=== PATIENT | male | born 1970 | race Caucasian/White ===

== ENCOUNTER 2020-10-26 12:14 | Inpatient (IN) | payer SELFPAY ==
[2020-10-26] VITALS (17 sets, daily range): BP systolic 106–189; BP diastolic 66–98; PULSE 71–100; RESP 10–24; TEMP 36.6–37.8; O2SAT 90–96; BMI 42.5; BMI 46.6
--- NOTE | 2020-10-26 13:40 | XRR_ITS ---
PROCEDURE INFORMATION: Exam: XR Chest Exam date and time: 10/26/2020 1:40 PM Age: 50 years old Clinical indication: Other: Pain in RT armpit; Additional info: Sepsis TECHNIQUE: Imaging protocol: XR of the chest. Views: 1 view. COMPARISON: CT chest w con* [id number] 10/26/2020 2:14 PM FINDINGS: Lungs: The lungs are clear bilaterally. The pulmonary vasculature is normal. Pleural spaces: No pleural effusion. No pneumothorax. Heart/Mediastinum: The heart is normal in size and contour. Mediastinum: Stable. Bones/joints: Stable. XR/XR chest 1V portable [id number] IMPRESSION: No acute cardiopulmonary abnormality identified.
--- NOTE | 2020-10-26 13:40 | CTR_ITS ---
PROCEDURE INFORMATION: Exam: CT Chest With Contrast; Diagnostic Exam date and time: 10/26/2020 1:40 PM Age: 50 years old Clinical indication: Mass, lump, or swelling in the chest; Patient HX: R axilla swelling and redness; Additional info: Suspect deep tissue infection of right axilla with abscess. TECHNIQUE: Imaging protocol: Diagnostic computed tomography of the chest with contrast. Radiation optimization: All CT scans at this facility use at least one of these dose optimization techniques: automated exposure control; mA and/or kV adjustment per patient size (includes targeted exams where dose is matched to clinical indication); or iterative reconstruction. Contrast material: OMNI 300; Contrast volume: 95 ml; Contrast route: INTRAVENOUS (IV); COMPARISON: No relevant prior studies available. RADIATION DOSE METRICS: Total DLP (mGy-cm): 1074.98 FINDINGS: Thyroid: The bilateral thyroid lobes are unremarkable. Lungs: Unremarkable. No consolidation. No masses. Pleural spaces: No pneumothorax. No pleural effusion. Heart: No cardiomegaly. No pericardial effusion. Aorta: Unremarkable. No aortic aneurysm. Lymph nodes: No enlarged lymph nodes. Spleen: The spleen is mildly enlarged measuring 17.0 cm transversely. Bones/joints: No destructive bony process identified. Thoracic spine vertebral body marginal osteophytes are noted at multiple levels. Subacute-chronic lateral left 5th through 8th rib fractures. Soft tissues: Extensive soft tissue edema of the right axilla, no ectopic gas identified. Overlying skin thickening. Fluid and mixed fluid/fat densities are present in the right axilla, none of which demonstrated well-formed wall. The findings are partially excluded by field of view limitations posterolaterally. CT/CT chest w con* [id number] IMPRESSION: 1. Findings consistent right axillary cellulitis. Developing multifocal abscess formation is suspected. MRI or follow-up may add additional useful information. 2. Mild splenomegaly. Radiation Dose CTDIVOL = (mGy): DLP = 1074.98 (mGy-cm)
--- NOTE | 2020-10-26 13:45 | ED_ITS ---
HPI - Dizziness General: Chief Complaint: Dizziness Stated Complaint: SPIDER BITE/DIZZINESS Time Seen by Provider: 10/26/20 13:11 History of Present Illness: HPI Narrative: 50-year-old male with no known past medical history presents due to 5 days of worsening swelling in his right axilla and armpit. Describes redness in the area. Describes lightheadedness. Denies chest pain or shortness of breath. Denies fevers or chills. Does not know of any diabetes. Denies any recent injury cuts or bites to the area. Review of Systems Narrative: - CONSTITUTIONAL: Denies weight loss, fever and chills. - HEENT: Denies changes in vision and hearing. - RESPIRATORY: Denies SOB and cough. - CV: Denies palpitations and CP. - GI: Denies abdominal pain, nausea, vomiting and diarrhea. - : Denies dysuria and urinary frequency. - MSK: Denies myalgia and joint pain. - SKIN: Endorses rash - NEUROLOGICAL: Denies headache, weakness, numbness and syncope. - PSYCHIATRIC: Denies suicidal ideation Physical Exam Narrative: EXAM NARRATIVE: - GENERAL: Alert and oriented x 3. No acute distress. Well-nourished. - EYES: EOMI. Anicteric. - HENT: Moist mucous membranes. No scleral icterus. No cervical lymphadenopathy. - LUNGS: Clear to auscultation bilaterally. No accessory muscle use. - CARDIOVASCULAR: Regular rate and rhythm. No murmur. No JVD. - ABDOMEN: Soft, non-tender and non-distended. No palpable masses. - EXTREMITIES: Erythema edema and induration to right armpit. No fluctuance. Area is tender. Extremities otherwise neurovascularly intact. No crepitus or signs of free gas. - SKIN: No rashes or lesions. Warm. - NEUROLOGIC: No meningismus or focal neurological deficits. CN II-XII grossly intact. - PSYCHIATRIC: Cooperative. Appropriate mood and affect. Course Vital Signs: Vital signs: Vital Signs Temperature 99.2 F 10/26/20 14:50 Pulse Rate 100 10/26/20 14:50 Respiratory Rate 22 H 10/26/20 14:50 Blood Pressure 146/92 10/26/20 14:50 Pulse Oximetry 94 10/26/20 14:50 MDM - Dizziness MDM Narrative: Medical decision making narrative: 50-year-old male presents due to axillary rash with edema and tenderness. On exam he is hemodynamically stable and nontoxic-appearing. Has low-grade fever. White count is elevated 14 there is hyponatremic to 126. Sepsis order set initiated. Patient was started on vancomycin cefepime and clindamycin. Blood cultures drawn. CT scan concerning for developing abscess but there is no free air. However in conjunction with severity of infected area and hyponatremia there is concern for developing necrotizing fasciitis. Discussed with surgery who will come to bedside to evaluate patient. Discussed with hospitalist and they agreed patient would benefit from admission. Patient admitted in stable condition. Further evaluation management per hospitalist team. Lab Data: Labs: Lab Results 10/26/20 10/26/20 10/26/20 Range/Units 13:58 13:58 13:58 WBC 14.8 H (4.0-10.0) 10^3/ uL RBC 4.03 L (4.1-5.3) 10^6/u L Hgb 13.4 (11.7-16.6) g/dL Hct 40.3 L (42.0-52.0) % MCV 100.0 H (80-94) fl MCH 33.3 (28.0-34.0) pg MCHC 33.3 (30.0-36.0) g/dL RDW 13.7 (12.1-15.1) % Plt Count 275 (130-400) 10^3/c mm MPV 11.1 H (7.4-10.4) fL Neut % (Auto) 80.3 % Lymph % (Auto) 7.4 % [place] % (Auto) 8.9 % Eos % (Auto) 1.7 % Baso % (Auto) 0.5 % Neut # (Auto) 11.88 H (1.8-7.7) 10^3/u L Lymph # (Auto) 1.1 (0.8-4.8) 10^3/u L [place] # (Auto) 1.3 H (0.2-0.9) 10^3/u L Eos # (Auto) 0.3 (0.0-0.8) 10^3/u L Baso # (Auto) 0.1 (0.0-0.1) 10^3/u L Nucleated RBC % (a uto) 0 % Nucleated RBCs # 0.0 /100WBC PT 14.10 (12.1-14.9) SECO NDS INR 1.06 (0.8-1.2) APTT 27.0 (23.9-36.7) SECO NDS Sodium 126 L (136-145) mmol/L Potassium 4.0 (3.5-5.1) mmol/L Chloride 87 L (98-107) mmol/L Carbon Dioxide 27 (22-29) mmol/L Anion Gap 16.0 (5-19) BUN 8 (6-20) mg/dL Creatinine 0.6 L (0.7-1.2) mg/dL GFR Calculation 143.8 H (90-130) mL/min Glucose 297 H (65-115) mg/dL Calculated Osmolal ity 271 L (285-295) mOsm/k g Lactic Acid (0.5-2.2) mmol/L Calcium 8.9 (8.5-10.5) mg/dL Total Bilirubin 1.0 (0.15-1.2) mg/dL AST 54 H (0-40) U/L ALT 34 (0-41) U/L Alkaline Phosphata se 150 H (40-130) IU/L Total Protein 6.8 (6.6-8.7) g/dL Albumin 3.0 L (3.5-5.2) g/dL Globulin 3.8 (1.3-4.6) g/dL 10/26/20 Range/Units 13:58 WBC (4.0-10.0) 10^3/ uL RBC (4.1-5.3) 10^6/u L Hgb (11.7-16.6) g/dL Hct (42.0-52.0) % MCV (80-94) fl MCH (28.0-34.0) pg MCHC (30.0-36.0) g/dL RDW (12.1-15.1) % Plt Count (130-400) 10^3/c mm MPV (7.4-10.4) fL Neut % (Auto) % Lymph % (Auto) % [place] % (Auto) % Eos % (Auto) % Baso % (Auto) % Neut # (Auto) (1.8-7.7) 10^3/u L Lymph # (Auto) (0.8-4.8) 10^3/u L [place] # (Auto) (0.2-0.9) 10^3/u L Eos # (Auto) (0.0-0.8) 10^3/u L Baso # (Auto) (0.0-0.1) 10^3/u L Nucleated RBC % (a uto) % Nucleated RBCs # /100WBC PT (12.1-14.9) SECO NDS INR (0.8-1.2) APTT (23.9-36.7) SECO NDS Sodium (136-145) mmol/L Potassium (3.5-5.1) mmol/L Chloride (98-107) mmol/L Carbon Dioxide (22-29) mmol/L Anion Gap (5-19) BUN (6-20) mg/dL Creatinine (0.7-1.2) mg/dL GFR Calculation (90-130) mL/min Glucose (65-115) mg/dL Calculated Osmolal ity (285-295) mOsm/k g Lactic Acid 1.8 (0.5-2.2) mmol/L Calcium (8.5-10.5) mg/dL Total Bilirubin (0.15-1.2) mg/dL AST (0-40) U/L ALT (0-41) U/L Alkaline Phosphata se (40-130) IU/L Total Protein (6.6-8.7) g/dL Albumin (3.5-5.2) g/dL Globulin (1.3-4.6) g/dL Critical Care Time Critical Care Time: Critical Care Time: Yes Total Critical Care Time: 45 Attestation: This case had a high probability of a clinically significant, sudden, or life threatening deterioration of this patient's condition which required my full and direct attention, intervention and personal management. Discharge Plan Discharge Prescriptions: No Action No Known Home Medications RF: 0 Coding Level of Care Code ED Health Information Assistant for Sruthi Sol
--- NOTE | 2020-10-26 13:46 | ECG_ITS ---
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
[2020-10-26] MEDS: sodium chloride 0.9% 1,000 ML 999 ML IV (14:05)
[2020-10-26] MEDS: iohexol 300 mg/mL 100 mL Btl IV (14:19)
[2020-10-26 14:23] LABS: Basophils # 0.1 10^3/uL (0.0-0.1); Basophils % 0.5 %; Eosinophils # 0.3 10^3/uL (0.0-0.8); Eosinophils % 1.7 %; Hematocrit 40.3 % (42.0-52.0); Hemoglobin 13.4 g/dL (11.7-16.6); Lymphocytes # 1.1 10^3/uL (0.8-4.8); Lymphocytes % 7.4 %; Mean Corpuscular HGB Conc 33.3 g/dL (30.0-36.0); Mean Corpuscular Hemoglobin 33.3 pg (28.0-34.0); Mean Platelet Volume 11.1 fL (7.4-10.4); Monocytes # 1.3 10^3/uL (0.2-0.9); Monocytes % 8.9 %; Neutrophils # 11.88 10^3/uL (1.8-7.7); Neutrophils % 80.3 %; Nucleated Red Blood Cells % 0 %; Platelet Count 275 10^3/cmm (130-400); Red Blood Count 4.03 10^6/uL (4.1-5.3); Red Cell Distribution Width 13.7 % (12.1-15.1); White Blood Count 14.8 10^3/uL (4.0-10.0)
[2020-10-26] MEDS: cefepime 2,000 MG in sodium chloride 0.9% (plus) 50 ML 100 MG IV (14:33)
[2020-10-26 14:38] LABS: INR 1.06 (0.8-1.2)
[2020-10-26] MEDS: morphine 4 mg/mL SDV 1 mL IVP (14:45)
[2020-10-26] MEDS: ondansetron 2 mg/ML SDV 2 mL 4 MG IVP (14:46)
[2020-10-26 14:48] LABS: Lactic Sepsis W/Reflex 1.8 mmol/L (0.5-2.2)
[2020-10-26 14:49] LABS: Alanine Aminotransferase 34 U/L (0-41); Alkaline Phosphatase 150 IU/L (40-130); Aspartate Amino Transferase 54 U/L (0-40); Blood Urea Nitrogen 8 mg/dL (6-20); Calcium 8.9 mg/dL (8.5-10.5); Carbon Dioxide 27 mmol/L (22-29); Chloride 87 mmol/L (98-107); Globulin 3.8 g/dL (1.3-4.6); Glomerular Filtration Rate 143.8 mL/min (90-130); Glucose 297 mg/dL (65-115); Osmolality Calculated 271 mOsm/kg (285-295); Sodium 126 mmol/L (136-145); Total Protein 6.8 g/dL (6.6-8.7)
[2020-10-26] MEDS: vancomycin 1,500 MG/300 ML PIGGYBACK 200 MG IV (15:12)
[2020-10-26 16:25] LABS: Creatine Phosphokinase 23 U/L (39-308)
--- NOTE | 2020-10-26 16:44 | P.HP_ITS ---
Providers/Chief Complaint Chief Complaint: SPIDER BITE/DIZZINESS History of Present Illness Boris Lauren is a 50 year old male with no significant past medical history, who presents to [facility] due to right axillary swelling. 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 In the emergency room he was noted to have extensive cellulitis under the right armpit, with possible underlying developing abscess, was seen by surgical service, plan on taking to the OR, his blood sugar was 297, he did have lunch, his blood pressures are 150s over 90s, his O2 sats do drop into the high 80s when lying down. Review of Systems Const: Denies: fever(s), chills, fatigue or malaise ENMT: Denies: nasal congestion Resp: Denies: dyspnea, productive cough, non-productive cough or wheezing GI: Denies: abdominal pain, nausea, vomiting, hematemesis, diarrhea, constipation, hematochezia or melena : Denies: flank pain, difficulty urinating, dysuria or urinary frequency Musc: Denies: neck pain or back pain Skin/Breast: Reports: rash, erythema, skin swelling and new lesions Neuro: Denies: headache(s), dizziness or vertigo Endo: Denies: polyuria or polydipsia Medications/Allergies Home Medications Medication Instructions Recorded Confirmed Last Taken Type No Known Home Medications 10/26/20 10/26/20 Unknown History Allergies Allergy/AdvReac Type Severity Reaction Status Date / Time No Known Allergies Allergy Verified 10/26/20 12:43 PFSH Acute PFSH: Surgical History (Updated 10/26/20 @ 16:49 by Leif Pickett MD) History of surgery on left wrist -Has metal plates in his left wrist Family History (Updated 10/26/20 @ 16:49 by Leif Pickett MD) Father CAD (coronary artery disease) Social History (Updated 10/26/20 @ 16:53 by Leif Pickett MD) Smoking and tobacco status: current some day smoker Alcohol intake: current Alcohol use comment: 02/22 pint yesterday Substance/Drug Use: never Vitals/I&O/Wt Last Vital Signs Temp 97.8 F 10/26/20 16:21 Pulse 96 10/26/20 16:21 Resp 22 H 10/26/20 16:21 BP 155/93 10/26/20 16:21 Pulse Ox 94 10/26/20 16:21 10/26/20 10/26/20 10/26/20 06:59 14:59 22:59 Intake Total 50 / 50 Balance 50 / 50 Weight last 48 hrs Weight 158.757 kg Physical Exam Const: COMMON NORMALS: no acute distress and patient oriented x3 HENMT: COMMON NORMALS: normocephalic HEAD & SCALP: normocephalic Eye: COMMON NORMALS: Equal, round and reactive pupils present and EOMs intact bilaterally GENERAL EYE: appearance normal, both eyes and all related structures PUPIL: Yes Equal, round and reactive pupils present Neck/C-Spine: COMMON NORMALS: full ROM, no lymphadenopathy and no JVD THYROID: Thyroid normal Lymph: LYMPHATIC: no lymphadenopathy noted Resp: COMMON NORMALS: normal respiratory effort, No retractions, No use of accessory muscles and clear to auscultation bilaterally AUSCULTATION: clear to auscultation bilaterally Cardio: COMMON NORMALS: no JVD, regular rate, regular rhythm, S1 normal heart sound present, S2 normal heart sound present, No gallops present (Cardio), No clicks present (Cardio) and No murmurs present (Cardio) RATE: regular rate RHYTHM: regular rhythm HEART SOUNDS: S1 normal heart sound present and S2 normal heart sound present GI: COMMON NORMALS: Normal to inspection, nondistended, normoactive bowel sounds present, Soft to palpation, non-tender and No hepatosplenomegaly present PALPATION: Yes Soft to palpation and Yes No hepatosplenomegaly present Extremity: COMMON NORMALS: normal to inspection, full ROM and no pedal edema Neuro: COMMON NORMALS: patient oriented x3, CN's II-XII intact bilaterally, moves all extremities and no focal motor deficits Psych: COMMON NORMALS: mental status grossly normal, Normal thought process present and cooperative THOUGHT PROCESS: Normal thought process present Skin: NARRATIVE SKIN EXAM: Right axilla, swelling, measuring 10 x 10 cm, roun d, extending from right axilla to right anterior chest, to posterior back, with fluctuance, Data : 10/26/20 13:58 10/26/20 13:58 Micro: Microbiology 10/26/20 15:06 Blood Culture - Preliminary Blood SPECIMEN COLLECTED 10/26/20 15:08 Blood Culture - Preliminary Blood SPECIMEN COLLECTED A&P Assessment and plan (1) Cellulitis of axilla, right: -Broad-spectrum antibiotic therapy vancomycin, cefepime, Cleocin -Continue to clinically monitor -N.p.o., for surgical intervention by surgical service -Follow blood cultures, surgical cultures -Follow inflammatory markers, CRP per, pro-Jeremy to monitor for fevers -Blood sugar elevated 293, will obtain A1c -Blood pressures are elevated, will monitor blood pressure, likely will require hypertensive medications -Does have evidence of sleep apnea, monitor for hypoxia overnight -Zofran for nausea -Morphine for pain -Lovenox for DVT prophylaxis -Full code Status: Acute (2) Abscess of right axilla: Status: Acute Attestations Medical Necessity Statement*: Patient requires hospitalization, outpatient with observation for cellulitis of right axilla, with underlying abscess Coding Level of Care Code Acute Manager Epic for Sruthi Sol Diagnoses Cellulitis of axilla, right L03.111 Abscess of right axilla L02.411
--- NOTE | 2020-10-26 16:50 | P.HP_ITS ---
Providers/Chief Complaint Chief Complaint: SPIDER BITE/DIZZINESS History of Present Illness Boris Lauren is a 50 year old male who presents the ER with several day history of right axillary pain, swelling, and redness. He denies any breaks in the skin or injury to the area. The pain associated with it is sharp in nature and is continual. Movement and palpation make it worse. Cool compresses and rest make it better. 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 He notes some low-grade temperatures and getting a general feeling of malaise. He denies any past medical history however he does not see a doctor regularly. Review of Systems General: Reports: 10 or more systems reviewed and unremarkable except in HPI and below Const: Reports: fever(s), body aches and malaise Skin/Breast: Reports: erythema, skin pain, skin tenderness and skin swelling Medications/Allergies Home Medications Medication Instructions Recorded Confirmed Last Taken Type No Known Home Medications 10/26/20 10/26/20 Unknown History Allergies Allergy/AdvReac Type Severity Reaction Status Date / Time No Known Allergies Allergy Verified 10/26/20 12:43 PFSH Acute PFSH: Surgical History (Updated 10/26/20 @ 16:49 by Leif Pickett MD) History of surgery on left wrist -Has metal plates in his left wrist Family History (Updated 10/26/20 @ 16:49 by Leif Pickett MD) Father CAD (coronary artery disease) Social History Smoking and tobacco status: current some day smoker Alcohol intake: current Alcohol use comment: 1/2 pint yesterday Substance/Drug Use: never Vitals/I&O/Wt Last Vital Signs Temp 97.8 F 10/26/20 16: Pulse 96 10/26/20 16:21 Resp 22 H 10/26/20 16:21 BP 155/93 10/26/20 16:21 Pulse Ox 94 10/26/20 16:21 10/26/20 10/26/20 10/26/20 06:59 14:59 22:59 Intake Total 50 / 50 Balance 50 / 50 Weight last 48 hrs Weight 350 lb Physical Exam Const: COMMON NORMALS: no acute distress GENERAL APPEARANCE: cooperative NUTRITIONAL APPEARANCE: obese morbidly obese HENMT: COMMON NORMALS: atraumatic, hearing grossly normal bilaterally and moist oral mucous membranes Eye: GENERAL EYE: appearance normal, both eyes and all related structures Neck/C-Spine: COMMON NORMALS: full ROM and no lymphadenopathy Resp: COMMON NORMALS: normal respiratory effort EFFORT & INSPECTION: Yes able to speak in complete sentences Cardio: COMMON NORMALS: regular rate and regular rhythm GI: COMMON NORMALS: Normal to inspection, nondistended, normoactive bowel sounds present Back/Pelvis: COMMON NORMALS: no CVA tenderness and thoracic and lumbar spine normal to inspection Neuro: COMMON NORMALS: patient oriented x3 Psych: COMMON NORMALS: mental status grossly normal, Normal thought process present and cooperative Skin: GENERAL SKIN EXAM: erythema (Right axilla-associated induration f luctuance with spread to the back) Data : 10/26/20 13:58 10/26/20 13:58 Micro: Microbiology 10/26/20 15:06 Blood Culture - Preliminary Blood SPECIMEN COLLECTED 10/26/20 15:08 Blood Culture - Preliminary Blood SPECIMEN COLLECTED CT Chest: Radiologist's impression: IMPRESSION: 1. Findings consistent right axillary cellulitis. Developing multifocal abscess formation is suspected. MRI or follow-up may add additional useful information. 2. Mild splenomegaly. A&P Assessment and plan (1) Abscess of right axilla: 50-year-old male with significant cellulitis and abscess formation of the right axilla. His learning score is low however given his rapid presentation a nd his obesity and body habitus I be concerned this could progress to quite significant evidence of tissue infection. -Admit to hospitalist med surgical floor. -Start broad-spectrum antibiotics -OR for incision and drainage Status: Acute Attestations Medical Necessity Statement*: Boris Oliveracurry's hospital stay will require greater than 2 midnights for significant abscess and cellulitis right axilla with concern for necrotizing soft tissue infection. Coding Level of Care Code Acute Reading Efficiency Course Director for Sruthi Sol Diagnoses Abscess of right axilla L02.411
--- NOTE | 2020-10-26 16:59 | ANES.PREANE2 ---
Pre-Anesthetic Assessment Pre-Anesthetic Assessment: Height/Weight: Height 1.93 m Weight 158.757 kg Temp Pulse Resp BP Pulse Ox 97.8 F 96 22 H 155/93 94 10/26/20 16:21 10/26/20 16:21 10/26/20 16:21 10/26/20 16:21 10/26/20 16:21 Preop Diagnosis: Necrotizing fasciitis Proposed Procedure: Operation Date: 10/26/20 17:00 Proposed Procedures p Debridement(Not Applicable) - Rico Stacy DO Familial anesthetic complications: None Was Beta Nicole taken within 24 hours: N/A Was Clonidine taken within 24 hours: N/A Last intake: 1100 - casserole Social: Social History: Alcohol Comment: 0.5 pint whiskey/day Exam: Pre-Anes Outpt Exam: alert, oriented x 3, clear to auscultation bilaterally and regular rate & rhythm Airway: Cervical ROM: WNL MP: 4 Dentition: Chipped Additional comments: Extremely poor dentition Metabolic: Metabolic: Morbid obesity Anesthetic Plan: ASA status: 3E Anesthesia: General Other: RSI Risk of > 500 ml blood loss (7ml/kg in children): No PFSH Anesthesia PFSH: Surgical History (Updated 10/26/20 @ 16:49 by Leif Pickett MD) History of surgery on left wrist -Has metal plates in his left wrist Family History (Updated 10/26/20 @ 16:49 by Leif Pickett MD) Father CAD (coronary artery disease) Social History (Updated 10/26/20 @ 16:53 by Leif Pickett MD) Smoking and tobacco status: current some day smoker Alcohol intake: current Alcohol use comment: 1/2 pint yesterday Substance/Drug Use: never Data Anesthesia CBC & Chem 7: 10/26/20 13:58 10/26/20 13:58 Other Labs: Laboratory Results - last 48 hr 10/26/20 10/26/20 10/26/20 13:58 13:58 13:58 WBC 14.8 H RBC 4.03 L Hgb 13.4 Hct 40.3 L MCV 100.0 H MCH 33.3 MCHC 33.3 RDW 13.7 Plt Count 275 MPV 11.1 H Neut % (Auto) 80.3 Lymph % (Auto) 7.4 [place] % (Auto) 8.9 Eos % (Auto) 1.7 Baso % (Auto) 0.5 Neut # (Auto) 11.88 H Lymph # (Auto) 1.1 [place] # (Auto) 1.3 H Eos # (Auto) 0.3 Baso # (Auto) 0.1 Nucleated RBC % (auto) 0 Nucleated RBCs # 0.0 PT 14.10 INR 1.06 APTT 27.0 Sodium 126 L Potassium 4.0 Chloride 87 L Carbon Dioxide 27 Anion Gap 16.0 BUN 8 Creatinine 0.6 L GFR Calculation 143.8 H Glucose 297 H Calculated Osmolality 271 L Lactic Acid Calcium 8.9 Total Bilirubin 1.0 AST 54 H ALT 34 Alkaline Phosphatase 150 H Creatine Kinase Total Protein 6.8 Albumin 3.0 L Globulin 3.8 10/26/20 10/26/20 13:58 13:58 WBC RBC Hgb Hct MCV MCH MCHC RDW Plt Count MPV Neut % (Auto) Lymph % (Auto) [place] % (Auto) Eos % (Auto) Baso % (Auto) Neut # (Auto) Lymph # (Auto) [place] # (Auto) Eos # (Auto) Baso # (Auto) Nucleated RBC % (auto) Nucleated RBCs # PT INR APTT Sodium Potassium Chloride Carbon Dioxide Anion Gap BUN Creatinine GFR Calculation Glucose Calculated Osmolality Lactic Acid 1.8 Calcium Total Bilirubin AST ALT Alkaline Phosphatase Creatine Kinase 23 L Total Protein Albumin Globulin Micro: Microbiology 10/26/20 15:06 Blood Culture - Preliminary Blood SPECIMEN COLLECTED 10/26/20 15:08 Blood Culture - Preliminary Blood SPECIMEN COLLECTED Cardiac Studies: No Data to Display
[2020-10-26] MEDS: clindamycin 900 MG/50 ML PREMIX 100 MG IV (17:00)
[2020-10-26 17:09] LABS: Estmated Average Glucose 206; Hemoglobin A1C 8.8 % (4.0-6.0)
--- NOTE | 2020-10-26 19:04 | PM.OP2 ---
Brief Operative Note: Date of procedure: 10/26/20 Pre-op diagnosis: Right axillary abscess Post-op diagnosis: same Procedure Done: Incision and drainage right axillary abscess Surgeon: Rico Stacy Estimated blood loss (mL): 300 Complications: None Post-op Plan: Admit to floor, dressing change in OR tomorrow Condition: stable Disposition: floor Coding Level of Care Code Acute Wood Turning Lathe Operator for Sruthi Sol
--- NOTE | 2020-10-26 19:08 | PM.OP ---
Operative Report Date of procedure: October 26, 2020 Pre-op Diagnosis: Right axillary abscess Post-op diagnosis: same Procedure Done: Incision and drainage of right axilla abscess-25 x 5 x 15 cm incision Specimens removed/disposition: Culture sent Surgeon: Rico Stacy Anesthesia: General Estimated blood loss (mL): 300 IV fluids: See anesthesia record Urine output: See anesthesia record Complications: None Findings: Multifocal abscess throughout the tissues of the axilla in both the superficial and deep cavities extending all the way to the chest wall laterally anteriorly and inferiorly Condition: stable Disposition: floor Brief History: 50-year-old male with morbid obesity and likely diabetes but undiagnosed presents with several day history of pain in the right axilla. CT scan reveals extensive cellulitis with possible multifocal abscess. On exam patient has area of significant erythema induration and an area of fluctuance. Patient consents to operative incision and drainage of this abscess. Procedure: Informed consent was obtained and the patient was brought back from the preoperative holding area to the OR and placed supine on the operating table with his right arm out. General endotracheal anesthesia was induced the patient was prepped and draped in the usual sterile fashion. A timeout was performed prior to start procedure. An incision was made overlying the area of the greatest fluctuance and extending anteriorly and inferiorly in a horizontal fashion along the axillary area for a total of 25 cm in length. An ellipse was cut out about 5 cm in size from this area of tissues to allow for good opening of the incision and visualization. A very large amount of purulence was encountered with significantly inflamed tissues. Blunt dissection was used to break up all the loculated loculations within the axilla. This extended deep to the axillary fascia. The nerves were spared throughout. The cavity extended inferiorly almost to the level of the latissimus dorsi. It extended anteriorly and superiorly to the level of the axillary vessels. It extended up onto the chest wall medially and anteriorly. 3 L of pulse lavage irrigation was used to irrigate and debride. Sharp and blunt debridement was also used throughout. There were some small areas of necrosis that were encountered which were debrided sharply. Another 2 L of irrigation was used to further irrigate the wound. Hemostasis was assured with packing and pressure and cautery. The incision was packed with 4 Betadine soaked Kerlix and a dressing was applied. Patient was extubated without incident and taken to the PACU for recovery. Plan will be taken back to the OR tomorrow for further inspection and possible debridement and wound VAC change arms are in dressing change.
--- NOTE | 2020-10-26 20:00 | ANE.PACU2 ---
Inpatient post-anesthesia follow up: Airway intact: Yes Vital signs: Temperature 98.1 F Pulse Rate [Monito r] 100 Pulse Rate 77 Respiratory Rate 18 Blood Pressure [Le ft Arm] 129/80 Blood Pressure 101/64 Pulse Oximetry 93 Oxygen Delivery Me thod [ BiPAP Current Rate & Del robert] Oxygen Delivery Me thod Nasal Cannula Oxygen Flow Rate 3 Fraction of Inspir ed Oxygen 35 Hydration adequate: Yes Nausea and vomiting: No Pain level: 3 Mental status: Baseline
[2020-10-26] MEDS: enoxaparin 40 mg/0.4 mL Syringe SUBCUT (20:25)
[2020-10-26] MEDS: sodium chloride 0.9% 1,000 ML 75 ML IV (20:28)
[2020-10-26] MEDS: pantoprazole 40 mg SDV IVP (20:41)
--- NOTE | 2020-10-26 21:14 | PC.NURSE ---
i reported high reps 20 to nurse
--- NOTE | 2020-10-26 21:40 | PC.RESP ---
Pt ripped bipap mask off stating I dont like it . RT placed pt on 3lpm NC. Bipap on SB SAT maintaining 92-93% att
[2020-10-26 21:50] LABS: Chol HDL Ratio 9.73 mg/dL (1.0-5.00); Cholesterol 107 mg/dL (0-200); HDL Cholesterol 11 mg/dL (60-100); LDL Cholesterol Calculated 56 mg/dL (50-129); LDL HDL Ratio 5.09 RATIO (0.00-3.22); Thyroid Stimulating Hormone 0.55 uIU/mL (0.27-4.20); Triglycerides 201 mg/dL (0-150)
[2020-10-27] VITALS (9 sets, daily range): BP systolic 101–149; BP diastolic 64–83; PULSE 77–91; RESP 18–22; TEMP 36.4–37.2; O2SAT 90–96
[2020-10-27] MEDS: clindamycin 600 MG/50 ML PREMIX 100 MG IV ×3 (00:25→16:11)
[2020-10-27] MEDS: cefepime 2,000 MG in sodium chloride 0.9% (plus) 50 ML 100 MG IV ×2 (03:11→15:47)
--- NOTE | 2020-10-27 08:39 | PC.CHAP ---
Pastoral Care Encounter/Spiritual Assessment Type of Contact [] Declined medical information specialist visit [] Patient/Family/Request visit [] Outpatient visit [] Follow-up visit [] Physician referral [] Code/Alert [x] Routine visit [] Staff referral [] Actively dying [] Patient sleeping [] Family support [] [] Out of room [] Palliative care [] [] Receiving care in room [] Pre-surgical visit [] Trauma [] Long length of stay [] ICU visit [] Other: Relational/Emotional Strength [x] Patient feels connected with others/family/visitors/staff [] Distress [] Loneliness/isolation [] Abandonment Spirituality of Patient [] Person of Zahraa [] Attends Hindu of their Zahraa [] Believes in Prayer [] Reads Bible or Caodaism materials [] There are Spiritual issues to be addressed Medical Technologist Generalist Interventions [x] Prayer [x] Active listening []x Non-anxious presence [] Spiritual/emotional support [] Crisis/trauma care [] Spiritual counseling [] Bereavement support [] Provided bereavement packet [] Provided Bible/devotional materials [] Provided toy/stuffed animal, coloring book to patient or family member [] Provided Communion [] Anointing/[facility] [] Salvation [x] Completed spiritual assessment [] Other: Impact on Illness or Injury [] Angry [] Fearful [] Anxious [] Often cries [] Exhaustion [] Unable to work [] Unable to attend adventist [] Unable to walk/stand [] Unable to read [] Unable to drive [] Unable to eat/drink [] Unable to sleep [] Unable to be with family [] Patient intubated [] Other: Summary patient in alots of pain Time spent with patient 10 mmin
[2020-10-27] MEDS: sodium chloride 0.9% 1,000 ML 75 ML IV (08:46)
[2020-10-27] MEDS: ondansetron 2 mg/ML SDV 2 mL 4 MG IVP (09:50)
[2020-10-27] MEDS: vancomycin 1,500 MG/300 ML PIGGYBACK 200 MG IV ×2 (10:49→18:04)
--- NOTE | 2020-10-27 11:08 | PM.PN ---
Subjective Subjective: Interval history: Patient notes feeling a lot better since yesterday with pain decreasing. Medications: Reviewed: Yes Vitals/I&O/Wt Last Vital Signs Temp 97.6 F 10/27/20 10:59 Pulse 83 10/27/20 10:59 Resp 18 10/27/20 10:59 BP 134/83 10/27/20 10:59 Pulse Ox 94 10/27/20 10:59 10/26/20 10/27/20 10/27/20 22:59 06:59 14:59 Intake Total 1000 / 1000 50 / 1050 1105.0 / 1105.0 Output Total 300 / 300 Balance 700 / 700 50 / 750 1105.0 / 1105.0 Weight last 48 hrs Weight 383 lb 1 oz Weight 350 lb Physical Exam Const: COMMON NORMALS: no acute distress and patient oriented x3 Resp: COMMON NORMALS: normal respiratory effort Cardio: COMMON NORMALS: regular rate and regular rhythm RATE: regular rate RHYTHM: regular rhythm GI: COMMON NORMALS: Normal to inspection, nondistended, normoactive bowel sounds present Extremity: NARRATIVE EXTREMITY EXAM: Right axilla with dressing in place. Dressing removed with no evidence of further purulence. There is some desiccated tissue there but no evidence of necrosis. Dressing replaced Neuro: COMMON NORMALS: patient oriented x3 Data : 10/26/20 13:58 10/26/20 13:58 Micro: Microbiology 10/26/20 15:06 Blood Culture - Preliminary Blood SPECIMEN COLLECTED 10/26/20 15:08 Blood Culture - Preliminary Blood SPECIMEN COLLECTED A&P Additional A&P Information 42-year-old male postop day 1 from incision and drainage of right axillary abscess. Patient is doing quite a bit better since yesterday. He still has significant mount of induration but no evidence of further purulence or necrosis on exam. Plan will be for bedside dressing change tomorrow a.m. I will make patient n.p.o. after midnight in the event that further surgery is required. Attestations Medical Necessity Statement*: Boris Lauren's hospital stay will require greater than 2 midnights for significant right axillary abscess with possibility of sepsis and need for possible repeat debridement and surgery. Coding Level of Care Code Acute Sheet Metal Roofer for Sruthi Sol
[2020-10-27 11:59] LABS: Glucose Point of Care 271 mg/dL (70-110)
[2020-10-27 13:35] LABS: Basophils # 0.1 10^3/uL (0.0-0.1); Basophils % 0.3 %; Eosinophils % 0.2 %; Hematocrit 34.7 % (42.0-52.0); Lymphocytes # 1.5 10^3/uL (0.8-4.8); Lymphocytes % 6.5 %; Mean Corpuscular HGB Conc 31.7 g/dL (30.0-36.0); Mean Corpuscular Hemoglobin 32.8 pg (28.0-34.0); Mean Corpuscular Volume 103.6 fl (80-94); Mean Platelet Volume 10.9 fL (7.4-10.4); Monocytes # 1.3 10^3/uL (0.2-0.9); Monocytes % 5.7 %; Neutrophils # 19.25 10^3/uL (1.8-7.7); Neutrophils % 82.8 %; Nucleated Red Blood Cells % 0 %; Platelet Count 353 10^3/cmm (130-400); Red Blood Count 3.35 10^6/uL (4.1-5.3); Red Cell Distribution Width 13.7 % (12.1-15.1); White Blood Count 23.2 10^3/uL (4.0-10.0)
[2020-10-27 13:54] LABS: Alanine Aminotransferase 34 U/L (0-41); Albumin Level 2.7 g/dL (3.5-5.2); Alkaline Phosphatase 114 IU/L (40-130); Anion Gap 15.2 (5-19); Aspartate Amino Transferase 59 U/L (0-40); Blood Urea Nitrogen 17 mg/dL (6-20); C Reactive Protein 88.6 mg/L (0.0-4.9); Calcium 7.9 mg/dL (8.5-10.5); Carbon Dioxide 25 mmol/L (22-29); Chloride 95 mmol/L (98-107); Globulin 3.5 g/dL (1.3-4.6); Glomerular Filtration Rate 103.2 mL/min (90-130); Glucose 239 mg/dL (65-115); Magnesium 2.1 mg/dL (1.7-2.3); Osmolality Calculated 281 mOsm/kg (285-295); Phosphorus 3.4 mg/dL (2.5-4.5); Potassium 4.2 mmol/L (3.5-5.1); Sodium 131 mmol/L (136-145); Total Bilirubin 0.6 mg/dL (0.15-1.2); Total Protein 6.2 g/dL (6.6-8.7)
--- NOTE | 2020-10-27 15:30 | PC.NURSE ---
Spoke with Rylan in pharmacy regarding Cefepime antibiotic not being here Rylan says he will tube it up.
--- NOTE | 2020-10-27 15:54 | P.PN_ITS ---
Subjective Subjective: Interval history: Patient was seen this morning, he tells me that he continues to have pain under his axilla, but feels better, no nausea, no vomiting, no fevers, no chills, currently on 3 L, denies history of sleep apnea, but does snore at night Vitals/I&O/Wt Last Vital Signs Temp 97.5 F L 10/27/20 15:10 Pulse 91 10/27/20 15:10 Resp 19 H 10/27/20 15:10 BP 115/74 10/27/20 15:10 Pulse Ox 90 10/27/20 15:10 10/27/20 10/27/20 10/27/20 06:59 14:59 22:59 Intake Total 50 / 1050 1405.0 / 1405.0 Output Total 350 / 350 Balance 50 / 750 1055.0 / 1055.0 Weight last 48 hrs Weight 173.754 kg Weight 158.757 kg Physical Exam Const: COMMON NORMALS: no acute distress and patient oriented x3 Chest: OTHER: Right axilla, erythema improved, surgical site has been dressed, no seepage Resp: COMMON NORMALS: normal respiratory effort, No retractions, No use of accessory muscles and clear to auscultation bilaterally AUSCULTATION: clear to auscultation bilaterally Cardio: COMMON NORMALS: regular rate, regular rhythm, S1 normal heart sound present and S2 normal heart sound present RATE: regular rate RHYTHM: regular rhythm HEART SOUNDS: S1 normal heart sound present and S2 normal heart sound present GI: COMMON NORMALS: Normal to inspection, nondistended, normoactive bowel s ounds present, Soft to palpation, non-tender and No hepatosplenomegaly present PALPATION: Yes Soft to palpation and Yes No hepatosplenomegaly present Extremity: COMMON NORMALS: no pedal edema Neuro: COMMON NORMALS: patient oriented x3 Psych: COMMON NORMALS: mental status grossly normal Data : 10/27/20 13:08 10/27/20 13:08 Micro: Microbiology 10/26/20 15:06 Blood Culture - Preliminary Blood SPECIMEN COLLECTED 10/26/20 15:08 Blood Culture - Preliminary Blood SPECIMEN COLLECTED A&P Assessment and plan (1) Cellulitis of axilla, right: -Broad-spectrum antibiotic therapy vancomycin, cefepime, Cleocin -Continue to clinically monitor -Status post surgical debridement by Dr. Savage, postop day 1 -Will await surgery's recommendation -Follow blood cultures, surgical cultures -Follow inflammatory markers, CRP per, pro-Jeremy to monitor for fevers -Blood pressures are elevated, will monitor blood pressure -Does have evidence of sleep apnea, currently on 2 L, monitor for hypoxia overnight -Zofran for nausea -Morphine for pain -Lovenox for DVT prophylaxis -Full code Status: Acute (2) Abscess of right axilla: Status: Acute (3) Type 2 diabetes mellitus: -Hemoglobin A1c 8.9 -Start Levemir 5 units twice daily -Low-dose sliding scale -Diabetic education -Consult dietary Status: Acute (4) Hyponatremia: Likely beers [place], related to alcohol abuse, monitor Status: Acute (5) Alcohol abuse: History of alcohol abuse, continue to monitor for withdrawal Status: Acute Attestations Medical Necessity Statement*: Patient requires hospitalization for cellulitis of right axilla, abscess status post debridement, required IV antibiotics hyponatremia, new onset type 2 diabetes mellitus Coding Level of Care Code Acute Sales Exhibitor for [facility] Sweta Diagnoses Cellulitis of axilla, right L03.111 Abscess of right axilla L02.411 Type 2 diabetes mellitus E11.9 Hyponatremia E87.1 Alcohol abuse F10.10
[2020-10-27 17:05] LABS: Glucose Point of Care 294 mg/dL (70-110)
[2020-10-27] MEDS: enoxaparin 40 mg/0.4 mL Syringe SUBCUT (19:59)
[2020-10-27] MEDS: pantoprazole 40 mg SDV IVP (20:17)
[2020-10-27] MEDS: morphine 4 mg/mL SDV 1 mL 2 MG IVP (20:18)
--- NOTE | 2020-10-27 20:54 | PC.NURSE ---
O2 SAT O2 sat was 87-88% on RA with VS check. Replaced NC at 2l and immediately up to 93%
[2020-10-27 21:21] LABS: Glucose Point of Care 340 mg/dL (70-110)
[2020-10-28] VITALS (9 sets, daily range): BP systolic 122–174; BP diastolic 66–97; PULSE 77–97; RESP 17–24; TEMP 36.7–37.3; O2SAT 90–98
[2020-10-28] MEDS: clindamycin 600 MG/50 ML PREMIX 100 MG IV ×2 (00:22→09:03)
[2020-10-28] MEDS: vancomycin 1,500 MG/300 ML PIGGYBACK 200 MG IV ×3 (02:25→18:15)
[2020-10-28 03:58] LABS: Hematocrit 31.7 % (42.0-52.0); Hemoglobin 10.2 g/dL (11.7-16.6); Mean Corpuscular HGB Conc 32.2 g/dL (30.0-36.0); Mean Corpuscular Hemoglobin 33.4 pg (28.0-34.0); Mean Corpuscular Volume 103.9 fl (80-94); Mean Platelet Volume 10.9 fL (7.4-10.4); Platelet Count 338 10^3/cmm (130-400); Red Blood Count 3.05 10^6/uL (4.1-5.3); Red Cell Distribution Width 13.8 % (12.1-15.1); White Blood Count 17.1 10^3/uL (4.0-10.0)
[2020-10-28] MEDS: cefepime 2,000 MG in sodium chloride 0.9% (plus) 50 ML 100 MG IV ×2 (04:00→15:49)
[2020-10-28 04:12] LABS: Alanine Aminotransferase 36 U/L (0-41); Albumin Level 2.6 g/dL (3.5-5.2); Alkaline Phosphatase 108 IU/L (40-130); Blood Urea Nitrogen 17 mg/dL (6-20); C Reactive Protein 52.8 mg/L (0.0-4.9); Calcium 7.8 mg/dL (8.5-10.5); Carbon Dioxide 27 mmol/L (22-29); Chloride 95 mmol/L (98-107); Globulin 3.2 g/dL (1.3-4.6); Glomerular Filtration Rate 120.4 mL/min (90-130); Glucose 159 mg/dL (65-115); Osmolality Calculated 279 mOsm/kg (285-295); Phosphorus 3.6 mg/dL (2.5-4.5); Sodium 132 mmol/L (136-145); Total Bilirubin 0.5 mg/dL (0.15-1.2); Total Protein 5.8 g/dL (6.6-8.7)
[2020-10-28 04:13] LABS: Aspartate Amino Transferase 68 U/L (0-40)
[2020-10-28 04:27] LABS: Absolute Eosinophils 0.6 10^3/cmm (0.0-0.7); Absolute Segmented Neutrophil 12.3 10/cmm (1.6-7.1); Band Neutrophils Absolute 0.7 10^3/cmm (0.0-1.2); Eosinophils 4 %; Lymphocytes 11 %; Lymphocytes Absolute 1.9 10^3/cmm (1.2-3.4); Monocytes Absolute 1.4 10^3/cmm (0.1-0.6); Segmented Neutrophils 72 %; Slide Review Slide Review Perform; Total Cells Counted 100 (0-100)
[2020-10-28 04:28] LABS: Platelet Estimate Normal (Normal)
--- NOTE | 2020-10-28 05:27 | PC.NURSE ---
SHIFT SUMMARY Has rested well tonight. Received dose of IV Morphine in the evening for pain in right arm/axilla area. Good relief with the Morphine. Receiving several IV antibiotics. NPO after midnight per Dr order. To do packing/dressing change this am when he comes in.
[2020-10-28 06:33] LABS: Glucose Point of Care 181 mg/dL (70-110)
[2020-10-28] MEDS: morphine 4 mg/mL SDV 1 mL 2 MG IVP ×2 (06:46→13:05)
--- NOTE | 2020-10-28 06:49 | PC.NURSE ---
DR VISIT/DRESSING CHANGE Dr Stacy here and started doing dressing change. Pt unable to tolerate without med so was given Morphine IV by RN
[2020-10-28 10:43] LABS: Vancomycin Trough 16.4 ug/mL (10-15)
[2020-10-28] MEDS: lisinopril 10 mg Tablet PO (11:05)
[2020-10-28 11:31] LABS: Glucose Point of Care 201 mg/dL (70-110)
--- NOTE | 2020-10-28 11:51 | PC.SOCIAL ---
Not triggered to be interviewed by case management, went to visit with pt that complained of being tired, however discussed meds to bed and provided financial foundations representative applications
--- NOTE | 2020-10-28 13:40 | PM.PN ---
Subjective Subjective: Interval history: Postop day #2 status post incision and drainage of large right axillary abscess. He has been receiving a wet-to-dry dressing. Moderate wound no discomfort. Afebrile. Vitals/I&O/Wt Last Vital Signs Temp 98.1 F 10/28/20 11:06 Pulse 97 10/28/20 11:06 Resp 18 10/28/20 13:05 BP 135/77 10/28/20 11:06 Pulse Ox 93 10/28/20 13:05 10/27/20 10/28/20 10/28/20 22:59 06:59 14:59 Intake Total 887 / 2292.0 640 / 2932.0 410 / 410 Output Total 900 / 1250 850 / 2100 Balance -13 / 1042.0 -210 / 832.0 410 / 410 Weight last 48 hrs Weight 383 lb 1 oz Physical Exam Extremity: OTHER: Original dressing was removed from this large right axillary incision. Wet-to-dry dressing was again reapplied utilizing Curlex and saline. Wound does extend fairly deep though it is clean. I would recommend consideration for wound VAC which I think will allow for more easier mobility and management. In the interim, would recommend continuing wet-to-dry dressings daily. Data : 10/28/20 02:35 10/28/20 02:35 Micro: Microbiology 10/26/20 18:04 Anaerobic Culture - Preliminary Axilla 10/26/20 18:04 Gram Stain - Final Axilla 10/26/20 15:08 Blood Culture - Preliminary Blood NEGATIVE TO DATE 10/26/20 15:06 Blood Culture - Preliminary Blood NEGATIVE TO DATE A&P Assessment and plan (1) Status post incision and drainage: Postop day #2 status post incision and drainage of a large right axillary abscess. Wound bed is clean. call or contact centre manager general surgeon not available for assessment today. I would recommend continuing wet-to-dry dressings and consideration for wound VAC which will allow for more easier outpatient management and then follow-up with wound care services. Status: Acute Attestations Medical Necessity Statement*: Post I&D of large right axillary abscess Time Spent in Patient Care: 16 - 35 minutes Coding Level of Care Code Acute Architectural Technologist for Sruthi Fwramila Diagnoses Status post incision and drainage Z98.890
--- NOTE | 2020-10-28 14:24 | P.PN_ITS ---
Subjective Subjective: Interval history: Patient was seen this morning, he tells me that his swelling has significantly improved, his dressings were changed early in the morning by his surgeon, no fevers, chills, nausea, update Vitals/I&O/Wt Last Vital Signs Temp 98.1 F 10/28/20 11:06 Pulse 97 10/28/20 11:06 Resp 18 10/28/20 13:05 BP 135/77 10/28/20 11:06 Pulse Ox 93 10/28/20 13:05 10/27/20 10/28/20 10/28/20 22:59 06:59 14:59 Intake Total 887 / 2292.0 640 / 2932.0 770 / 770 Output Total 900 / 1250 850 / 2100 Balance -13 / 1042.0 -210 / 832.0 770 / 770 Weight last 48 hrs Weight 173.754 kg Physical Exam Const: COMMON NORMALS: no acute distress and patient oriented x3 Chest: OTHER: Right axilla, surgical site looks clean and dry, with packing in place Resp: COMMON NORMALS: normal respiratory effort, No retractions, No use of a ccessory muscles and clear to auscultation bilaterally AUSCULTATION: clear to auscultation bilaterally Cardio: COMMON NORMALS: regular rate, regular rhythm, S1 normal heart sound present and S2 normal heart sound present RATE: regular rate RHYTHM: regular rhythm HEART SOUNDS: S1 normal heart sound present and S2 normal heart sound present GI: COMMON NORMALS: Normal to inspection, nondistended, normoactive bowel sounds present, Soft to palpation and non-tender PALPATION: Yes Soft to palpation Extremity: COMMON NORMALS: no pedal edema Neuro: COMMON NORMALS: patient oriented x3 Psych: COMMON NORMALS: mental status grossly normal Data : 10/28/20 02:35 10/28/20 02:35 Micro: Microbiology 10/26/20 18:04 Anaerobic Culture - Preliminary Axilla 10/26/20 18:04 Gram Stain - Final Axilla 10/26/20 15:08 Blood Culture - Preliminary Blood NEGATIVE TO DATE 10/26/20 15:06 Blood Culture - Preliminary Blood NEGATIVE TO DATE A&P Assessment and plan (1) Cellulitis of axilla, right: -Broad-spectrum antibiotic therapy vancomycin, cefepime, will stop Cleocin -Continue to clinically monitor -Status post surgical debridement by Dr. Savage, postop day 2 -Likely discharge next 3 4 hours, will await surgical's recommendation -Follow blood cultures, surgical cultures -Follow inflammatory markers, CRP per, pro-Jeremy to monitor for fevers -Start lisinopril for hypertension -Does have evidence of sleep apnea, currently on 2 L, monitor for hypoxia overnight -Zofran for nausea -Morphine for pain -Lovenox for DVT prophylaxis -Full code Status: Acute (2) Abscess of right axilla: Status: Acute (3) Type 2 diabetes mellitus: -Hemoglobin A1c 8.9 -Start Levemir 5 units twice daily -Low-dose sliding scale -Diabetic education -Consult dietary Status: Acute (4) Hyponatremia: Likely beers [place], related to alcohol abuse, monitor Status: Acute (5) Alcohol abuse: History of alcohol abuse, continue to monitor for withdrawal Status: Acute Attestations Medical Necessity Statement*: Patient requires hospitalization for cellulitis axilla right, with underlying abscess, status post debridement, requiring antibiotic therapy Coding Level of Care Code Acute Document Design Specialist for garett Sol Diagnoses Cellulitis of axilla, right L03.111 Abscess of right axilla L02.411 Type 2 diabetes mellitus E11.9 Hyponatremia E87.1 Alcohol abuse F10.10
--- NOTE | 2020-10-28 14:50 | PC.NURSE ---
Dr. Castano requested wound vac for wound to R axilla. Shell in case management notified.
--- NOTE | 2020-10-28 15:11 | PC.NUTR ---
Nutrition Note: Verbal consult per Dr. Pickett. Pt received diabetes nutrition education via discussion and handouts. Handouts covered carb counting, how to read nutrition facts labels, and carbs in alcohol. Pt seemed uninterested in education and would benefit from more. Will follow up in 1-3 days or as needed. See full assessment for more details.
[2020-10-28 16:27] LABS: Glucose Point of Care 246 mg/dL (70-110)
--- NOTE | 2020-10-28 19:25 | PC.NURSE ---
Report to Staci AYALA at this time.
[2020-10-28] MEDS: enoxaparin 40 mg/0.4 mL Syringe SUBCUT (20:01)
[2020-10-28 20:36] LABS: Glucose Point of Care 209 mg/dL (70-110)
[2020-10-28] MEDS: pantoprazole 40 mg SDV IVP (20:36)
[2020-10-28] MEDS: acetaminophen 325 mg Tablet 650 MG PO (22:14)
[2020-10-29 02:32] LABS: Basophils # 0.1 10^3/uL (0.0-0.1); Basophils % 0.6 %; Eosinophils # 0.4 10^3/uL (0.0-0.8); Eosinophils % 4.8 %; Hematocrit 31.4 % (42.0-52.0); Hemoglobin 9.8 g/dL (11.7-16.6); Lymphocytes # 1.3 10^3/uL (0.8-4.8); Lymphocytes % 14.4 %; Mean Corpuscular HGB Conc 31.2 g/dL (30.0-36.0); Mean Corpuscular Hemoglobin 33.1 pg (28.0-34.0); Mean Corpuscular Volume 106.1 fl (80-94); Monocytes # 0.6 10^3/uL (0.2-0.9); Monocytes % 6.8 %; Neutrophils % 66.1 %; Nucleated Red Blood Cells % 0 %; Platelet Count 245 10^3/cmm (130-400); Red Blood Count 2.96 10^6/uL (4.1-5.3); Red Cell Distribution Width 13.8 % (12.1-15.1); White Blood Count 8.9 10^3/uL (4.0-10.0)
[2020-10-29 02:57] LABS: Alanine Aminotransferase 39 U/L (0-41); Albumin Level 2.4 g/dL (3.5-5.2); Alkaline Phosphatase 97 IU/L (40-130); Aspartate Amino Transferase 61 U/L (0-40); Blood Urea Nitrogen 11 mg/dL (6-20); C Reactive Protein 21.3 mg/L (0.0-4.9); Calcium 8.3 mg/dL (8.5-10.5); Carbon Dioxide 27 mmol/L (22-29); Chloride 97 mmol/L (98-107); Globulin 3.5 g/dL (1.3-4.6); Glomerular Filtration Rate 177.5 mL/min (90-130); Glucose 192 mg/dL (65-115); Magnesium 1.7 mg/dL (1.7-2.3); Osmolality Calculated 281 mOsm/kg (285-295); Phosphorus 3.6 mg/dL (2.5-4.5); Sodium 133 mmol/L (136-145); Total Bilirubin 0.5 mg/dL (0.15-1.2); Total Protein 5.9 g/dL (6.6-8.7)
[2020-10-29 02:59] LABS: Anion Gap 13.2 (5-19); Potassium 4.2 mmol/L (3.5-5.1)
[2020-10-29 03:18] LABS: Slide Review Slide Review Perform
[2020-10-29] MEDS: vancomycin 1,500 MG/300 ML PIGGYBACK 200 MG IV ×2 (03:40→11:24)
[2020-10-29 04:00] VITALS: BP 146/75; PULSE 73; RESP 18; TEMP 36.7; O2SAT 96
[2020-10-29] MEDS: cefepime 2,000 MG in sodium chloride 0.9% (plus) 50 ML 100 MG IV (05:19)
[2020-10-29 06:31] LABS: Glucose Point of Care 175 mg/dL (70-110)
[2020-10-29 07:43] VITALS: BP 163/81; PULSE 69; RESP 16; TEMP 37; O2SAT 93
[2020-10-29 09:00] VITALS: PULSE 78; O2SAT 94
[2020-10-29] MEDS: lisinopril 10 mg Tablet PO (09:50)
--- NOTE | 2020-10-29 09:50 | XR_ITS ---
WS: [id number] Portable AP upright chest, 10/29/2020 Clinical Data: hypoxia Comparison: Portable chest, 10/26/2020. Findings: No nodules, masses or effusions are seen. The heart is normal. The pulmonary vascularity is not increased. No pneumonia or pneumothorax is seen. There is minimal atelectasis at the left costop hrenic angle. XR/XR chest 1V portable [id number] Impression: Negative chest.
[2020-10-29 10:16] LABS: ABG PCO2 47.5 mmHg (35-45); ABG PH Result 7.44 (7.35-7.45); Arterial Blood Gas Hematocrit 32.5 % (42-52); Blood Gas Allen Test Pos; Blood Gas Operator Identificat CAK; Blood Gas Sample Site Brachial, left; Blood Gas Sample Type Arterial; HCO3 ABG 32.2 mmol/L (22-26); Oxygen Device ROOM AIR
[2020-10-29 10:52] LABS: Glucose Point of Care 190 mg/dL (70-110)
[2020-10-29 11:00] VITALS: O2SAT 91; O2SAT 94
[2020-10-29 11:09] LABS: Vancomycin Trough 16.3 ug/mL (10-15)
[2020-10-29] MEDS: FUROsemide 10 mg/mL SDV 4mL 40 MG IVP (11:24)
[2020-10-29] MEDS: morphine 4 mg/mL SDV 1 mL 2 MG IVP (11:29)
[2020-10-29 11:42] VITALS: BP 137/83; PULSE 81; RESP 16; TEMP 37; O2SAT 94
--- NOTE | 2020-10-29 12:21 | P.DS_ITS ---
Discharge Providers Date of Admission: 10/26/20 17:38 Date of Discharge: October 29, 2020 Attending Provider at Admission: Rico Stacy DO Attending Provider at Discharge: Rico Stacy DO Diagnoses at Discharge Discharge Diagnosis (1) Cellulitis of axilla, right: Status: Acute (2) Abscess of right axilla: Status: Acute (3) Type 2 diabetes mellitus: Status: Acute (4) Hyponatremia: Status: Acute (5) Alcohol abuse: Status: Acute Reason for Visit Reason for Visit: SPIDER BITE/DIZZINESS Hospital Course Hospital Course This is a 50-year-old male with no significant past medical history who presents to [facility] for swelling, tenderness, pain under the right axilla Patient was admitted for cellulitis and underlying abscess under the right axilla, general surgery was consulted, he received incision and drainage, cultures grew MRSA, was managed with broad-spectrum antibiotic therapy, clinically improved. Will be discharged on doxycycline on Augmentin for 11 remaining days. Dressing changes, wet-to-dry, with close follow-up with wound care Patient is newly diagnosed hypertension, discharged on lisinopril Patient is a newly diagnosed type II diabetic managed on insulin sliding scale, long-acting as inpatient, A1c 8.8, patient was stressed the importance of blood sugar management with his cellulitis and abscess as above -For your type 2 diabetes mellitus -Take Metformin as prescribed, have primary care provider check your liver function in 1 week -Follow-up with primary care provider about discussion of sleep apnea, sleep study -I have discharged you on Lantus 10 units in the morning -Do not inject Lantus if you do not eat, as Lantus is associated with hypoglycemia, which is associate with morbidity and mortality -I have discharged you on NovoLog sliding scale -For NovoLog sliding scale, please inject subcutaneously, 3 times daily, with meals, based on sliding scale provided below -Please check your blood sugars 3 times daily, record them in a blood sugar log, and bring them to your primary care physician -If your blood sugars greater than 500 call your primary care -If your blood sugar is less than 60, drink juice or eat a hard candy and go to the emergency room --Do not inject NovoLog if you do not eat, as NovoLog is associated with hypoglycemia, which is associate with morbidity and mortality Fingerstick Blood Glucose Insulin Units 141-180 mg/dl 2 unit/SQ 181-220 mg/dl 4 units/SQ 221-260 mg/dl 6 units/SQ 261-300 mg/dl 8 units/SQ 301-350 mg/dl 10 units/SQ 351-400 mg/dl 12 units/SQ greater than 400 mg/dl 14 units/SQ Patient also had episodes of hypoxia amount during the night, likely has sleep apnea, follow-up with primary care provider about sleep study Physical Exam Const: COMMON NORMALS: no acute distress and patient oriented x3 Chest: OTHER: Right axillary wound, status post debridement, packed, minimal drainage, Resp: COMMON NORMALS: normal respiratory effort, No retractions, No use of accessory muscles and clear to auscultation bilaterally AUSCULTATION: clear to auscultation bilaterally Cardio: COMMON NORMALS: regular rate, regular rhythm, S1 normal heart sound present and S2 normal heart sound present RATE: regular rate RHYTHM: regular rhythm HEART SOUNDS: S1 normal heart sound present and S2 normal heart sound present GI: COMMON NORMALS: Normal to inspection, nondistended, normoactive bowel sounds present, Soft to palpation and non-tender PALPATION: Yes Soft to palpation Extremity: COMMON NORMALS: no pedal edema Neuro: COMMON NORMALS: patient oriented x3 Psych: COMMON NORMALS: mental status grossly normal Discharge Data Data Completed and Pending: Completed Studies During Hospitalization Category Date Time Status CT chest w con* [id number] Stat Cat Scan 10/26/20 13:40 Completed XR chest 1V brice ble [id number] Routine Exams 10/29/20 09:50 Completed XR chest 1V brice ble [id number] Stat Exams 10/26/20 13:40 Completed Pending at discharge Category Date Time Status Anaerobic Culture Routine Lab 10/26/20 18:04 Results Blood Culture Sta t Lab 10/26/20 15:06 Results Wound Culture and Gram Stain Routin e Lab 10/26/20 18:04 Results Labs from last 24 hours 10/29/20 10/29/20 10/29/20 10:42 10:17 10:05 WBC RBC Hgb Hct MCV MCH MCHC RDW Plt Count MPV Neut % (Auto) Lymph % (Auto) Frontier % (Auto) Eos % (Auto) Baso % (Auto) Neut # (Auto) Lymph # (Auto) Frontier # (Auto) Eos # (Auto) Baso # (Auto) Nucleated RBC % (a uto) Nucleated RBCs # Specimen Type Arterial Sample Site Brachial, left ABG pH 7.44 ABG pCO2 47.5 H ABG pO2 64.0 L ABG HCO3 32.2 H ABG Base Excess 7.0 H Eriberto Test Pos Hematocrit 32.5 L O2 Delivery Device Room air FiO2 21.0 Chief Juvenile Probation Officer ID Cak Sodium Potassium Chloride Carbon Dioxide Anion Gap BUN Creatinine GFR Calculation Glucose POC Glucose 190 H Calculated Osmolal ity Calcium Phosphorus Magnesium Total Bilirubin AST ALT Alkaline Phosphata se C-Reactive Protein Total Protein Albumin Globulin Vancomycin Trough 16.3 H 10/29/20 10/29/20 10/29/20 06:20 02:21 02:21 WBC 8.9 RBC 2.96 L Hgb 9.8 L Hct 31.4 L MCV 106.1 H MCH 33.1 MCHC 31.2 RDW 13.8 Plt Count 245 MPV 11.0 H Neut % (Auto) 66.1 Lymph % (Auto) 14.4 Frontier % (Auto) 6.8 Eos % (Auto) 4.8 Baso % (Auto) 0.6 Neut # (Auto) 5.90 Lymph # (Auto) 1.3 Frontier # (Auto) 0.6 Eos # (Auto) 0.4 Baso # (Auto) 0.1 Nucleated RBC % (a uto) 0 Nucleated RBCs # 0.0 Specimen Type Sample Site ABG pH ABG pCO2 ABG pO2 ABG HCO3 ABG Base Excess Eriberto Test Hematocrit O2 Delivery Device FiO2 Chief Juvenile Probation Officer ID Sodium 133 L Potassium 4.2 Chloride 97 L Carbon Dioxide 27 Anion Gap 13.2 BUN 11 Creatinine 0.5 L GFR Calculation 177.5 H Glucose 192 H POC Glucose 175 H Calculated Osmolal ity 281 L Calcium 8.3 L Phosphorus 3.6 Magnesium 1.7 Total Bilirubin 0.5 AST 61 H ALT 39 Alkaline Phosphata se 97 C-Reactive Protein 21.3 H Total Protein 5.9 L Albumin 2.4 L Globulin 3.5 Vancomycin Trough 10/28/20 10/28/20 20:33 16:22 WBC RBC Hgb Hct MCV MCH MCHC RDW Plt Count MPV Neut % (Auto) Lymph % (Auto) Frontier % (Auto) Eos % (Auto) Baso % (Auto) Neut # (Auto) Lymph # (Auto) Frontier # (Auto) Eos # (Auto) Baso # (Auto) Nucleated RBC % (a uto) Nucleated RBCs # Specimen Type Sample Site ABG pH ABG pCO2 ABG pO2 ABG HCO3 ABG Base Excess Eriberto Test Hematocrit O2 Delivery Device FiO2 Chief Juvenile Probation Officer ID Sodium Potassium Chloride Carbon Dioxide Anion Gap BUN Creatinine GFR Calculation Glucose POC Glucose 209 H 246 H Calculated Osmolal ity Calcium Phosphorus Magnesium Total Bilirubin AST ALT Alkaline Phosphata se C-Reactive Protein Total Protein Albumin Globulin Vancomycin Trough Vitals: Last Vital Signs Temp 98.6 F 10/29/20 11:42 Pulse 81 10/29/20 11:42 Resp 16 10/29/20 11:42 BP 137/83 10/29/20 11:42 Pulse Ox 94 10/29/20 11:42 Discharge Plan Discharge Patient Disposition: Home Condition: Stable Prescriptions: New lisinopril 10 mg Tablet 10 mg PO DAILY 30 Days Qty: 30 RF: 0 doxycycline hyclate 100 mg capsule 100 mg PO BID 11 Days Qty: 22 RF: 0 Augmentin 875-125 mg tablet 1 tab PO BID 11 Days Qty: 22 RF: 0 Novolog Flexpen U-100 Insulin 100 unit/mL (3 mL) insulin pen See Rx Instructions .ROUTE .COMPLEX Qty: 15 RF: 0 Lantus Solostar U-100 Insulin 100 unit/mL (3 mL) insulin pen 10 unit SUBCUT DAILY Qty: 15 RF: 0 (DME) glucometer See Rx Instructions .Route .MEDSUPPLY Qty: 1 RF: 0 metformin 1,000 mg tablet 1,000 mg PO DAILY 30 Days Qty: 30 RF: 0 hydrocodone-acetaminophen 5-325 mg tablet 1 tab PO Q12H 7 Days Qty: 14 RF: 0 Discharge Orders: Discharge Order (Routine); Ordered 10/29/20 Ordered By: Leif Pickett Referrals: [facility], [Staff Physician] - 1-3 days Discharge Diet: Diabetic Discharge Activity: Resume usual activity Patient Instructions: Type 2 Diabetes, Diabetes and Diet, Lisinopril (By mouth), Doxycycline (By mouth), Hydrocodone/Acetaminophen (By mouth), Amoxicillin/Clavulanate Potassium (By mouth), Metformin (By mouth), Insulin Aspart, Recombinant (Injection), Insulin Glargine (Injection), How to Check Your Blood Sugar (GEN), Diabetic Foot Care (GEN), Diabetic Hypoglycemia (GEN), Diabetes Mellitus Type 2 in Adults (GEN), Basic Carbohydrate Counting (DC), Meal Planning with the Plate Model (GEN), Acute Wound Care (GEN), Diabetic Foot Ulcers (DC), Opioid Safety Activity Restrictions/Additional Instructions: -For your cellulitis and abscess take antibiotics as prescribed -Please do daily dressing changes as prescribed -If your wound looks worse, or develop fevers go back to the emergency room -Follow-up with wound care in 1 to 3 days -Follow-up with primary care in 1 week -For your high blood pressure take lisinopril as prescribed -For your type 2 diabetes mellitus -Take Metformin as prescribed, have primary care provider check your liver function in 1 week -Follow-up with primary care provider about discussion of sleep apnea, sleep study -I have discharged you on Lantus 10 units in the morning -Do not inject Lantus if you do not eat, as Lantus is associated with hypoglycemia, which is associate with morbidity and mortality -I have discharged you on NovoLog sliding scale -For NovoLog sliding scale, please inject subcutaneously, 3 times daily, with meals, based on sliding scale provided below -Please check your blood sugars 3 times daily, record them in a blood sugar log, and bring them to your primary care physician -If your blood sugars greater than 500 call your primary care -If your blood sugar is less than 60, drink juice or eat a hard candy and go to the emergency room --Do not inject NovoLog if you do not eat, as NovoLog is associated with hypoglycemia, which is associate with morbidity and mortality Fingerstick Blood Glucose Insulin Units 141-180 mg/dl 2 unit/SQ 181-220 mg/dl 4 units/SQ 221-260 mg/dl 6 units/SQ 261-300 mg/dl 8 units/SQ 301-350 mg/dl 10 units/SQ 351-400 mg/dl 12 units/SQ greater than 400 mg/dl 14 units/SQ Discharge Attestations Time Spent in Discharge Care*: less than 30 min Quality Metrics Clinical Quality Measures During this hospital stay, did patient experience: None Coding Level of Care Code Acute Chg FW DC note Diagnoses Cellulitis of axilla, right L03.111 Abscess of right axilla L02.411 Type 2 diabetes mellitus E11.9 Hyponatremia E87.1 Alcohol abuse F10.10
[2020-10-29 14:40] LABS: Glucose Point of Care 156 mg/dL (70-110)
--- NOTE | 2020-10-29 15:14 | PC.NURSE ---
Patient and given written and verbal information regarding diabetes. asked questions and was receptive to learning.
--- NOTE | 2020-10-29 16:00 | PC.NURSE ---
patient verbalized understanding of discharge instructions, home medications, dressing change orders, and follow up appointments. extensive education provided to both patient and his regarding diabetes, including modifiable factors, including diet, exercise, alcohol use, and smoking. pts observed 2nd dressing change of the day, and verbalized she would be able to do it at home. patient discharged with supplies to get him to his wound care follow up appointment.
[2020-10-29 16:06] VITALS: BP 137/83; PULSE 81; RESP 16; TEMP 37; O2SAT 94
--- NOTE | 2020-10-30 10:51 | PC.SOCIAL ---
discharge follow up call made. patient is aware of follow up appointments. medications were delivered prior to discharge, patient is taking as prescribed.
== END 2020-10-29 15:30 | disposition home or self-care (01) | DRG 603 ==
LOC: ER 13:11 → OR 16:15 → MEDSURG 19:04
PROVIDERS: Family Medicine; Admitting Provider Anesthesiology Critical Care Medicine; Emergency Provider Emergency Medicine; Visit Provider Anesthesiology Critical Care Medicine
PROC: 0X943ZZ Drainage of Right Axilla, Percutaneous Approach (ICD-10-PCS; principal; 2020-10-26 17:00)
DX: L03.111 Cellulitis of right axilla (principal); E87.1 Hypo-osmolality and hyponatremia; L02.411 Cutaneous abscess of right axilla; E11.9 Type 2 diabetes mellitus without complications; F10.10 Alcohol abuse, uncomplicated; F17.210 Nicotine dependence, cigarettes, uncomplicated; Z82.49 Family history of ischemic heart disease and other diseases of the circulatory system; Z79.4 Long term (current) use of insulin
CPT/HCPCS: 36415; 36416; 36600; 71045; 71260; 80053; 80061; 80202; 82550; 82803; 82962; 83036; 83605; 83735; 84100; 84443; 85007; 85025; 85610; 85730; 86140; 87040; 87070; 87075; 87077; 87186; 87205; 93005; 94660; 96365; 96367; 96372; 99291; C9113; J0330; J0692; J1100; J1650; J1815; J1885; J1940; J2270; J2405; J2704; J2710; J3010; J3370; J3490; J7030; Q9967

== ENCOUNTER 2020-11-04 09:54 | Outpatient (CLI) | payer SELFPAY | END 2020-11-04 09:55 | disposition home or self-care (01) | LOC: WOUND 09:56 | PROVIDERS: Visit Provider Thoracic Surgery (Cardiothoracic Vascular Surgery) | DX: T81.89XA Other complications of procedures, not elsewhere classified, initial encounter (principal); Y83.8 Other surgical procedures as the cause of abnormal reaction of the patient, or of later complication, without mention of misadventure at the time of the procedure; F17.210 Nicotine dependence, cigarettes, uncomplicated | CPT/HCPCS: 11042; 11045; G0463 ==

== ENCOUNTER 2020-11-11 14:33 | Outpatient (CLI) | payer SELFPAY | END 2020-11-11 14:34 | disposition home or self-care (01) | LOC: WOUND 14:34 | PROVIDERS: Visit Provider Nurse Practitioner Family | DX: T81.89XA Other complications of procedures, not elsewhere classified, initial encounter (principal); Y83.8 Other surgical procedures as the cause of abnormal reaction of the patient, or of later complication, without mention of misadventure at the time of the procedure; F17.210 Nicotine dependence, cigarettes, uncomplicated | CPT/HCPCS: 11042; 11045 ==

== ENCOUNTER → 2020-11-13 09:50 | Outpatient (BNVA) | payer SELFPAY | PROVIDERS: PCP Family Medicine; Visit Provider Family Medicine | DX: E11.9 Type 2 diabetes mellitus without complications (principal); Z79.4 Long term (current) use of insulin; Z76.89 Persons encountering health services in other specified circumstances; I10 Essential (primary) hypertension; F10.10 Alcohol abuse, uncomplicated | CPT/HCPCS: 80053; 80061; 82043; 83036; 84443 ==

== ENCOUNTER 2020-11-18 14:44 | Outpatient (CLI) | payer SELFPAY | END 2020-11-18 14:45 | disposition home or self-care (01) | LOC: WOUND 14:44 | PROVIDERS: PCP Family Medicine; Visit Provider Thoracic Surgery (Cardiothoracic Vascular Surgery) | DX: T81.89XA Other complications of procedures, not elsewhere classified, initial encounter (principal); Y83.8 Other surgical procedures as the cause of abnormal reaction of the patient, or of later complication, without mention of misadventure at the time of the procedure; F17.210 Nicotine dependence, cigarettes, uncomplicated | CPT/HCPCS: 97597; 97598 ==

== ENCOUNTER 2020-11-25 13:43 | Outpatient (CLI) | payer SELFPAY | END 2020-11-25 13:44 | disposition home or self-care (01) | LOC: WOUND 13:44 | PROVIDERS: PCP Family Medicine; Visit Provider Thoracic Surgery (Cardiothoracic Vascular Surgery) | DX: T81.89XA Other complications of procedures, not elsewhere classified, initial encounter (principal); Y83.8 Other surgical procedures as the cause of abnormal reaction of the patient, or of later complication, without mention of misadventure at the time of the procedure; F17.210 Nicotine dependence, cigarettes, uncomplicated | CPT/HCPCS: 97597 ==

== ENCOUNTER 2020-12-02 14:47 | Outpatient (CLI) | payer SELFPAY | END 2020-12-02 14:48 | disposition home or self-care (01) | LOC: WOUND 14:47 | PROVIDERS: PCP Family Medicine; Visit Provider Thoracic Surgery (Cardiothoracic Vascular Surgery) | DX: T81.89XA Other complications of procedures, not elsewhere classified, initial encounter (principal); Y83.8 Other surgical procedures as the cause of abnormal reaction of the patient, or of later complication, without mention of misadventure at the time of the procedure; E11.9 Type 2 diabetes mellitus without complications; F17.210 Nicotine dependence, cigarettes, uncomplicated | CPT/HCPCS: 11042 ==

== ENCOUNTER 2020-12-09 14:08 | Outpatient (CLI) | payer SELFPAY | END 2020-12-09 14:09 | disposition home or self-care (01) | LOC: WOUND 14:09 | PROVIDERS: PCP Family Medicine; Visit Provider Thoracic Surgery (Cardiothoracic Vascular Surgery) | DX: T81.89XA Other complications of procedures, not elsewhere classified, initial encounter (principal); Y83.8 Other surgical procedures as the cause of abnormal reaction of the patient, or of later complication, without mention of misadventure at the time of the procedure; F17.210 Nicotine dependence, cigarettes, uncomplicated | CPT/HCPCS: 11042 ==

== ENCOUNTER 2020-12-23 14:09 | Outpatient (CLI) | payer SELFPAY | END 2020-12-23 14:10 | disposition home or self-care (01) | LOC: WOUND 14:09 | PROVIDERS: PCP Family Medicine; Visit Provider Thoracic Surgery (Cardiothoracic Vascular Surgery) | DX: T81.89XA Other complications of procedures, not elsewhere classified, initial encounter (principal); Y83.8 Other surgical procedures as the cause of abnormal reaction of the patient, or of later complication, without mention of misadventure at the time of the procedure; F17.210 Nicotine dependence, cigarettes, uncomplicated; E11.9 Type 2 diabetes mellitus without complications; I10 Essential (primary) hypertension | CPT/HCPCS: 97597 ==

== ENCOUNTER → 2021-02-25 08:54 | Outpatient (BNVA) | payer SELFPAY | PROVIDERS: PCP Family Medicine; Visit Provider Family Medicine | DX: F17.219 Nicotine dependence, cigarettes, with unspecified nicotine-induced disorders (principal); E11.9 Type 2 diabetes mellitus without complications; Z79.4 Long term (current) use of insulin; I10 Essential (primary) hypertension | CPT/HCPCS: 80048; 83036 ==

== ENCOUNTER → 2021-06-12 11:24 | Outpatient (BNVA) | payer SELFPAY | PROVIDERS: PCP Family Medicine; Visit Provider Family Medicine | DX: E11.9 Type 2 diabetes mellitus without complications (principal); I10 Essential (primary) hypertension; F17.219 Nicotine dependence, cigarettes, with unspecified nicotine-induced disorders; Z79.4 Long term (current) use of insulin | CPT/HCPCS: 80048; 83036 ==

== ENCOUNTER 2022-03-02 11:33 | Emergency (ER) | payer MEDICAID, SELFPAY ==
[2022-03-02] VITALS (8 sets, daily range): BP systolic 134–179; BP diastolic 91–112; PULSE 60–94; RESP 15–22; TEMP 36.9; O2SAT 90–95; BMI 45.0
--- NOTE | 2022-03-02 12:49 | XRR_ITS ---
PROCEDURE INFORMATION: Exam: XR Chest Exam date and time: 03/02/2022 12:57 PM Age: 51 years old Clinical indication: Cough and dyspnea; Patient HX: SOB, cough, pneumonia x 1wk pain in sides to between shoulder blades; Additional info: Dyspnea/cough TECHNIQUE: Imaging protocol: Radiologic exam of the chest. Views: 1 view. COMPARISON: CR XR chest 1V portable [id number] 10/29/2020 9:51 AM FINDINGS: Lungs: Indistinct left hilar density obscured by the left heart border difficult to further assess and inconclusive for mass. Remaining lung kiran are clear. Pleural spaces: Unremarkable. No pleural effusion. No pneumothorax. Heart/Mediastinum: Cardiac silhouette is mildly enlarged on this portable chest. Bones/joints: Unremarkable. XR/XR chest 1V portable [id number] IMPRESSION: 1. Mild cardiomegaly. 2. Findings inconclusive for left hilar mass which follow-up CT chest for the with IV contrast recommended for further evaluation.
[2022-03-02 13:16] LABS: Basophils % 0.5 %; Eosinophils # 0.2 10^3/uL (0.0-0.8); Eosinophils % 2.7 %; Hematocrit 45.4 % (42.0-52.0); Hemoglobin 14.5 g/dL (11.7-16.6); Lymphocytes # 1.3 10^3/uL (0.8-4.8); Lymphocytes % 15.7 %; Mean Corpuscular HGB Conc 31.9 g/dL (30.0-36.0); Mean Corpuscular Hemoglobin 32.2 pg (28.0-34.0); Mean Corpuscular Volume 100.9 fl (80-94); Mean Platelet Volume 10.8 fL (7.4-10.4); Monocytes # 0.7 10^3/uL (0.2-0.9); Monocytes % 8.5 %; Neutrophils # 6.06 10^3/uL (1.8-7.7); Neutrophils % 72.2 %; Nucleated Red Blood Cells % 0 %; Platelet Count 252 10^3/cmm (130-400); Red Cell Distribution Width 13.3 % (12.1-15.1); White Blood Count 8.4 10^3/uL (4.0-10.0)
--- NOTE | 2022-03-02 13:21 | W.ED.SOB ---
HPI - SOB/Dyspnea General: Chief Complaint: Upper Respiratory Infection Stated Complaint: congestion,SOB,back spasms Time Seen by Provider: 03/02/22 12:30 Source: patient Mode of arrival: ambulatory History of Present Illness: HPI Narrative: 51-year-old male presents emergency room complaining of shortness of breath productive cough for the last 2 to 3 weeks. He is beginning to have chest wall pain from his frequent cough. He does smoke a pack or more per day. He denies any radiating chest pain. Cough has been productive of white-green sputum. He denies any hemoptysis. No diaphoresis. MD elicited complaint: shortness of breath and cough Pertinent past history: COPD Onset (ago): week(s) (2-3) Timing: constant Severity: moderate Exacerbating factors: nothing Relieving factors: nothing, oxygen and rest Known history of: COPD Associated symptoms: Reports chest congestion, chest pain and cough; Deny abdominal pain, diaphoresis, dizziness, extremity pain, fever(s), hemoptysis, lightheadedness, myalgias, nausea, orthopnea, palpitations, paresthesias, polydipsia, polyuria, rash, sense of impending doom, syncope or vomiting Treatment prior to arrival: oxygen Review of Systems Const: Denies: fever(s), chills, fatigue, malaise or diaphoresis ENMT: Denies: throat pain, ear or mastoid pain, nasal discharge or nasal congestion Card: Reports: chest pain; Denies: palpitations, lightheadedness, syncope or orthopnea Resp: Reports: dyspnea, productive cough, wheezing and chest congestion; Denies: hemoptysis GI: Denies: abdominal pain, nausea or vomiting : Denies: flank pain, difficulty urinating, dysuria, urinary frequency or urinary urgency Musc: Reports: neck pain and back pain; Denies: extremity pain Skin/Breast: Denies: rash or pruritus Neuro: Denies: dizziness Endo: Denies: polyuria or polydipsia PFSH ED PFSH: Medical History Essential hypertension Surgical History History of surgery on left wrist -Has metal plates in his left wrist Family History Father CAD (coronary artery disease) Social History Smoking and tobacco status: current every day smoker cigarettes Packs smoked per day: 1 and smokeless tobacco Alcohol intake: current Alcohol intake frequency: few times a week Alcohol type: hard liquor Physical Exam Const: GENERAL APPEARANCE: cooperative and comfortable ORIENTATION/CONSCIOUSNESS: Yes awake, Yes oriented to person, Yes oriented to place and Yes oriented to time HENMT: COMMON NORMALS: normocephalic, atraumatic and hearing grossly normal bilaterally HEAD & SCALP: normocephalic and atraumatic Resp: COMMON NORMALS: normal respiratory effort, No retractions and No use of accessory muscles AUSCULTATION: rhonchi and wheezes Cardio: COMMON NORMALS: regular rate, regular rhythm and No murmurs present (Cardio) RATE: regular rate RHYTHM: regular rhythm GI: COMMON NORMALS: Soft to palpation and No hepatosplenomegaly present AUSCULTATION: Yes normoactive bowel sounds PALPATION: Yes Soft to palpation, No Tenderness to palpation present (GI), No Guarding due to palpation present (GI) and Yes No hepatosplenomegaly present Extremity: COMMON NORMALS: normal to inspection, capillary refill normal, no clubbing, cyanosis or edema, no calf tenderness and no pedal edema Neuro: SENSORIUM/ORIENTATION: Yes oriented to person, Yes oriented to place and Yes oriented to time Skin: COMMON NORMALS: no rashes or lesions noted GENERAL SKIN EXAM: no rashes or lesions noted Course Vital Signs: Vital signs: Vital Signs Temperature 98.5 F 03/02/22 11:49 Pulse Rate 71 03/02/22 16:30 Respiratory Rate 17 03/02/22 16:30 Blood Pressure 166/101 03/02/22 16:30 Pulse Oximetry 94 03/02/22 16:30 Oxygen Delivery Me thod 03/02/22 16:30 Oxygen Flow Rate 1 03/02/22 14:30 MDM - SOB/Dyspnea Medical Decision Making Acute exacerbation COPD discharge home with prednisone taper as well as albuterol to use as needed. Recheck with PCP within a week. Return if is further problems. Medical Records I reviewed the patient's medical records. Lab Data I reviewed the patient's lab results. 03/02/22 13:10 03/02/22 13:10 Labs/Radiology: Radiology Impressions Chest X-Ray 03/02/22 12:49 IMPRESSION: 1. Mild cardiomegaly. 2. Findings inconclusive for left hilar mass which follow-up CT chest for the with IV contrast recommended for further evaluation. Laboratory Results WBC 8.4 10^3/uL (4.0-10.0) 03/02/22 13:10 RBC 4.50 10^6/uL (4.1-5.3) 03/02/22 13:10 Hgb 14.5 g/dL (11.7-16.6) 03/02/22 13:10 Hct 45.4 % (42.0-52.0) 03/02/22 13:10 MCV 100.9 fl (80-94) H 03/02/22 13:10 MCH 32.2 pg (28.0-34.0) 03/02/22 13:10 MCHC 31.9 g/dL (30.0-36.0) 03/02/22 13:10 RDW 13.3 % (12.1-15.1) 03/02/22 13:10 Plt Count 252 10^3/cmm (130-400) 03/02/22 13:10 MPV 10.8 fL (7.4-10.4) H 03/02/22 13:10 Neut % (Auto) 72.2 % 03/02/22 13:10 Lymph % (Auto) 15.7 % 03/02/22 13:10 [place] % (Auto) 8.5 % 03/02/22 13:10 Eos % (Auto) 2.7 % 03/02/22 13:10 Baso % (Auto) 0.5 % 03/02/22 13:10 Neut # (Auto) 6.06 10^3/uL (1.8-7.7) 03/02/22 13:10 Lymph # (Auto) 1.3 10^3/uL (0.8-4.8) 03/02/22 13:10 [place] # (Auto) 0.7 10^3/uL (0.2-0.9) 03/02/22 13:10 Eos # (Auto) 0.2 10^3/uL (0.0-0.8) 03/02/22 13:10 Baso # (Auto) 0.0 10^3/uL (0.0-0.1) 03/02/22 13:10 Nucleated RBC % (auto) 0 % 03/02/22 13:10 Nucleated RBCs # 0.0 /100WBC 03/02/22 13:10 Sodium 137 mmol/L (136-145) 03/02/22 13:10 Potassium 4.1 mmol/L (3.5-5.1) 03/02/22 13:10 Chloride 95 mmol/L (98-107) L 03/02/22 13:10 Carbon Dioxide 32 mmol/L (22-29) H 03/02/22 13:10 Anion Gap 14.1 (5-19) 03/02/22 13:10 BUN 8 mg/dL (6-20) 03/02/22 13:10 Creatinine 0.9 mg/dL (0.7-1.2) 03/02/22 13:10 GFR Calculation 89.7 mL/min (90-130) L 03/02/22 13:10 Glucose 131 mg/dL (65-115) H 03/02/22 13:10 Calculated Osmolality 284 mOsm/kg (285-295) L 03/02/22 13:10 Calcium 9.2 mg/dL (8.5-10.5) 03/02/22 13:10 Total Bilirubin 0.9 mg/dL (0.15-1.2) 03/02/22 13:10 AST 29 U/L (0-40) 03/02/22 13:10 ALT 41 U/L (0-41) 03/02/22 13:10 Alkaline Phosphatase 90 U/L (40-130) 03/02/22 13:10 Total Protein 7.5 g/dL (6.6-8.7) 03/02/22 13:10 Albumin 4.0 g/dL (3.5-5.2) 03/02/22 13:10 Globulin 3.5 g/dL (1.3-4.6) 03/02/22 13:10 Discharge Plan Discharge Patient Disposition: Home Clinical Impression: Acute exacerbation of chronic obstructive pulmonary disease Condition: Stable Prescriptions: New albuterol sulfate 90 mcg/actuation HFA aerosol inhaler 2 inh INHALATION Q4H PRN (Reason: shortness of breath or wheezing) Qty: 18 0RF No Action lisinopril 40 mg tablet 40 mg PO DAILY Qty: 30 5RF ipratropium-albuterol 0.5 mg-3 mg(2.5 mg base)/3 mL solution for nebulization 3 ml inhalation Q4H Qty: 90 0RF prednisone 20 mg tablet 20 mg PO TID Qty: 25 0RF Rx Instructions: 3 tabs x 5 days, 2 tabs x 5 days, 1 tab x 3 days, 1/2 tab x 3 days. amoxicillin-pot clavulanate 875-125 mg tablet 1 tab PO BID Qty: 14 0RF amlodipine 10 mg tablet 10 mg PO DAILY Qty: 30 2RF chlorthalidone 25 mg tablet 25 mg PO DAILY Qty: 30 2RF insulin aspart U-100 [Novolog FlexPen U-100 Insulin] 100 unit/mL (3 mL) insulin pen See Rx Instructions .ROUTE .COMPLEX Qty: 15 0RF Rx Instructions: Inject subcut, 3 times daily with meals, based on sliding scale provided Discharge Orders: Discharge ED (Routine); Ordered 03/02/22 Ordered By: Dariusz Reyes Referrals: Rafael Jacobson, [Primary Care Provider] - Discharge Diet: Usual diet Discharge Activity: Increase activity as tolerated Patient Instructions: Opioid Safety, Pain Management Activity Restrictions/Additional Instructions: You were seen today for shortness of breath and cough. Suspect you have an exacerbation of COPD there is no acute pneumonias on your chest x-ray. There was a increased area of density on the right lung which she will need follow-up. [employer] manager will make arrangements for you to have an outpatient CT of your chest. Coding Level of Care Code ED Aperture Mask Etcher for Sruthi Fwramila Exam Detailed
[2022-03-02] MEDS: ipratropium-albuterol 3 mL Neb INHALATION (13:33)
[2022-03-02 13:36] LABS: Alanine Aminotransferase 41 U/L (0-41); Alkaline Phosphatase 90 U/L (40-130); Anion Gap 14.1 (5-19); Aspartate Amino Transferase 29 U/L (0-40); Blood Urea Nitrogen 8 mg/dL (6-20); Calcium 9.2 mg/dL (8.5-10.5); Carbon Dioxide 32 mmol/L (22-29); Chloride 95 mmol/L (98-107); Globulin 3.5 g/dL (1.3-4.6); Glomerular Filtration Rate 89.7 mL/min (90-130); Glucose 131 mg/dL (65-115); Osmolality Calculated 284 mOsm/kg (285-295); Potassium 4.1 mmol/L (3.5-5.1); Sodium 137 mmol/L (136-145); Total Bilirubin 0.9 mg/dL (0.15-1.2); Total Protein 7.5 g/dL (6.6-8.7)
--- NOTE | 2022-03-02 15:06 | ECG_ITS ---
[facility] Test Date: 2022-03-02 Pat Name: Boris Lauren Department: Room: Gender: Male Director Of Teenage Activities: : 1970 Requested By: Dariusz Paulino Order Number: [id number] Wesly MD: Ignacio Cook M.D. Measurements Intervals [place] Rate: 81 P: 36 MA: 158 QRS: -26 QRSD: 98 T: 78 QT: 404 QTc: 471 Interpretive Statements SINUS RHYTHM WITH FREQUENT VENTRICULAR PREMATURE COMPLEXES BORDERLINE LEFT AXIS DEVIATION [QRS AXIS < -20] LEFT VENTRICULAR HYPERTROPHY AND ST-T CHANGE [VOLTAGE CRITERIA PLUS ST/T ABNORMALITY] Compared to ECG 10/26/2020 14:32:02 Ventricular premature complex(es) now present Left ventricular hypertrophy now present ST (T wave) deviation now present T-wave abnormality no longer present Electronically Signed On 03-02-2022 17:26:19 PERIODONTIST by Ignacio Cook M.D. [id number]
== END 2022-03-02 17:00 | disposition home or self-care (01) ==
PROVIDERS: Emergency Provider Family Medicine; PCP Family Medicine
DX: J44.1 Chronic obstructive pulmonary disease with (acute) exacerbation (principal); Z79.4 Long term (current) use of insulin; I10 Essential (primary) hypertension; F17.210 Nicotine dependence, cigarettes, uncomplicated
CPT/HCPCS: 71045; 80053; 85025; 93005; 94640; 96374; 99285; J2930

== ENCOUNTER → 2022-03-04 09:21 | Outpatient (BNVA) | payer MEDICAID, SELFPAY | PROVIDERS: PCP Family Medicine; Visit Provider Family Medicine | DX: E11.9 Type 2 diabetes mellitus without complications (principal); I10 Essential (primary) hypertension; Z79.4 Long term (current) use of insulin | CPT/HCPCS: 83036 ==

== ENCOUNTER 2022-03-25 10:35 | Emergency (ER) | payer MEDICAID, SELFPAY ==
[2022-03-25 10:40] VITALS: BP 161/85; PULSE 54; RESP 20; TEMP 36.5; O2SAT 94; BMI 48.2
--- NOTE | 2022-03-25 10:49 | XR_ITS ---
WS: [id number] Portable AP upright chest, 03/25/2022 Clinical Data: R lung pleuritic pain Comparison: Portable chest, 03/02/2022 Findings: No nodules, masses or effusions are seen. The heart is normal. The pulmonary vascularity is not increased. No pneumonia or pneumothorax is seen. XR/XR chest 1V portable [id number] Impression: Negative chest.
--- NOTE | 2022-03-25 10:49 | ECG_ITS ---
[facility] Test Date: 2022-03-25 Pat Name: Boris Lauren Department: Room: Gender: Male Certified Ophthalmic Medical Technician: : 1970 Requested By: Pablo Mckeon Order Number: [id number] Jarrell MD: Lucille Mccormack M.D. Measurements Intervals [place] Rate: 98 P: 34 KS: 149 QRS: -27 QRSD: 90 T: 88 QT: 360 QTc: 462 Interpretive Statements SINUS RHYTHM WITH FREQUENT VENTRICULAR PREMATURE COMPLEXES WITH OCCASIONAL SUPRAVENTRICULAR PREMATURE COMPLEXES BORDERLINE LEFT AXIS DEVIATION [QRS AXIS < -20] LEFT VENTRICULAR HYPERTROPHY AND ST-T CHANGE [VOLTAGE CRITERIA PLUS ST/T ABNORMALITY] Compared to ECG 03/02/2022 15:06:12 No significant changes Electronically Signed On 03-25-2022 12:53:12 MAIL ORDER CLERK by Lucille Mccormack M.D. [email or web address] Holdingspatient[facility] countyH[facility].[employer]/store/[id number]
--- NOTE | 2022-03-25 11:21 | ED_ITS ---
Documented by User: BALWINDER May 03/26/22 12:17 HPI - Back Pain/Injury General: Chief Complaint: Back Pain/Injury Stated Complaint: Pain in upper back, lung pain Time Seen by Provider: 03/25/22 11:15 History of Present Illness: Patient is a 51-year-old male who comes to the ED with upper back pain. Past medical history of diabetes and COPD. for the past 3 to 4 days patient that he has been having severe pain in between his shoulder blades. Denies any injury, fall or trauma to cause pain. Says pain is constant and denies any relieving factors. Says pain is worse when he tries to lay down. He rates the pain currently a 10 out of 10. Denies any chest pain. He does state that he has some right lung pain when he breathes and that he was recently diagnosed with pneumonia and is taking antibiotic. Denies any other symptoms. Associated symptoms: Deny abdominal pain, chills, dysuria, fatigue, fever(s), h ematuria, nausea or vomiting Review of Systems Const: Denies: fever(s), chills or fatigue Eyes: Denies: change in vision or eye discomfort ENMT: Denies: throat pain, odynophagia, nasal discharge or nasal congestion Card: Denies: chest pain, palpitations, edema, swelling of feet/ankles, dyspnea on exertion or orthopnea Resp: Reports: dyspnea and pain on inspiration (Right lung); Denies: productive cough or non-productive cough GI: Denies: abdominal pain, nausea, vomiting, diarrhea, constipation or hematochezia : Denies: flank pain, difficulty urinating, dysuria or hematuria Musc: Reports: back pain; Denies: neck pain or extremity swelling Skin/Breast: Denies: rash or new lesions Neuro: Denies: headache(s), numbness in extremities or weakness in extremities PFS ED PFSH: Medical History Essential hypertension Surgical History History of surgery on left wrist -Has metal plates in his left wrist Family History Father CAD (coronary artery disease) Social History Smoking and tobacco status: current every day smoker cigarettes Packs smoked per day: 1 and smokeless tobacco Alcohol intake: current Alcohol intake frequency: few times a week Alcohol type: hard liquor Physical Exam Const: COMMON NORMALS: patient oriented x3 and alert GENERAL APPEARANCE: cooperative and comfortable HENMT: COMMON NORMALS: normocephalic HEAD & SCALP: normocephalic MOUTH: Normal oral and palatal mucosa present THROAT: posterior oropharynx normal and uvula midline Neck/C-Spine: COMMON NORMALS: supple GENERAL: Yes normal visual inspection Resp: COMMON NORMALS: normal respiratory effort, No retractions, No use of accessory muscles and clear to auscultation bilaterally AUSCULTATION: clear to auscultation bilaterally Cardio: COMMON NORMALS: regular rate, regular rhythm, S1 normal heart sound present, S2 normal heart sound present, No gallops present (Cardio), No clicks present (Cardio), No murmurs present (Cardio) and Peripheral pulses 2+ throughout RATE: regular rate RHYTHM: regular rhythm HEART SOUNDS: S1 normal heart sound present and S2 normal heart sound present PERIPHERAL PULSES: Peripheral pulses 2+ throughout GI: COMMON NORMALS: Normal to inspection, nondistended, normoactive bowel sounds present, Soft to palpation, non-tender and no masses PALPATION: Yes Soft to palpation : COMMON NORMALS: Yes no CVA tenderness BLADDER/KIDNEY EXAM: Yes no CVA tenderness Back/Pelvis: COMMON NORMALS: no CVA tenderness THORACIC SPINE/UPPER BACK: Yes thoracic spinal tenderness T-spine tenderness location: T3, T4 and T5 and Yes paraspinal muscle tenderness Thoracic paraspinal muscle tenderness: bilateral Extremity: COMMON NORMALS: normal to inspection Neuro: COMMON NORMALS: patient oriented x3 SENSORIUM/ORIENTATION: Yes alert GAIT: Yes Normal gait present Skin: GENERAL SKIN EXAM: dry skin Course Vital Signs: Vital signs: Vital Signs Temperature 97.7 F 03/25/22 10:40 Pulse Rate 87 03/25/22 15:40 Respiratory Rate 24 H 03/25/22 15:40 Blood Pressure 134/79 03/25/22 15:40 Pulse Oximetry 92 03/25/22 15:40 Oxygen Delivery Me thod 03/25/22 15:40 Oxygen Flow Rate 3 03/25/22 14:18 MDM - Back Pain/Injury Medical Decision Making Patient is a 51-year-old male who comes to the ED with upper back pain. Past medical history of diabetes and COPD. for the past 3 to 4 days patient that he has been having severe pain in between his shoulder blades. Denies any injury, fall or trauma to cause pain. Says pain is constant and denies any relieving factors. Says pain is worse when he tries to lay down. He rates the pain currently a 10 out of 10. Denies any chest pain. Vitals are stable. Patient has some tenderness over T3-T5 and thoracic paraspinal muscle tenderness bilaterally. Rest of exam is benign. Troponins negative. EKG shows sinus rhythm with frequent PVCs. No ST segment elevation or depression seen. Chest x-ray shows no acute findings. CTA of chest shows a T4 compression fracture with no abdominal aortic aneurysm or dissection seen. I placed order with case management for patient be referred to Dr. Meyer the orthospine specialist for follow-up. He was put in a TLSO brace and discharged home with some hydrocodone for pain. He was given strict return to ED precautions. Patient understood and agreed with plan. Labs I reviewed the patient's lab results. 03/25/22 12:00 03/25/22 12:00 Radiology Impressions Chest X-Ray 03/25/22 10:49 Impression: Negative chest. Chest/Abdomen/Pelvis CTA 03/25/22 12:43 IMPRESSION: 1. Normal thoracic and abdominal aortas. No dissection or aneurysm. 2. Age-indeterminate T4, 50% compression fracture. New since 10/26/2020. 3. No pneumonia. 4. LEFT adrenal adenoma lipoma. 5. No acute abdominal or pelvic abnormalities are identified. 6. No renal obstruction or appendicitis. Laboratory Results WBC 8.2 10^3/uL (4.0-10.0) 03/25/22 12:00 RBC 5.03 10^6/uL (4.1-5.3) 03/25/22 12:00 Hgb 16.1 g/dL (11.7-16.6) 03/25/22 12:00 Hct 51.0 % (42.0-52.0) 03/25/22 12:00 MCV 101.4 fl (80-94) H 03/25/22 12:00 MCH 32.0 pg (28.0-34.0) 03/25/22 12:00 MCHC 31.6 g/dL (30.0-36.0) 03/25/22 12:00 RDW 13.2 % (12.1-15.1) 03/25/22 12:00 Plt Count 229 10^3/cmm (130-400) 03/25/22 12:00 MPV 11.0 fL (7.4-10.4) H 03/25/22 12:00 Neut % (Auto) 70.3 % 03/25/22 12:00 Lymph % (Auto) 19.6 % 03/25/22 12:00 Chester % (Auto) 7.4 % 03/25/22 12:00 Eos % (Auto) 2.1 % 03/25/22 12:00 Baso % (Auto) 0.5 % 03/25/22 12:00 Neut # (Auto) 5.73 10^3/uL (1.8-7.7) 03/25/22 12:00 Lymph # (Auto) 1.6 10^3/uL (0.8-4.8) 03/25/22 12:00 Chester # (Auto) 0.6 10^3/uL (0.2-0.9) 03/25/22 12:00 Eos # (Auto) 0.2 10^3/uL (0.0-0.8) 03/25/22 12:00 Baso # (Auto) 0.0 10^3/uL (0.0-0.1) 03/25/22 12:00 Nucleated RBC % (auto) 0 % 03/25/22 12:00 Nucleated RBCs # 0.0 /100WBC 03/25/22 12:00 Sodium 139 mmol/L (136-145) 03/25/22 12:00 Potassium 3.9 mmol/L (3.5-5.1) 03/25/22 12:00 Chloride 96 mmol/L (98-107) L 03/25/22 12:00 Carbon Dioxide 31 mmol/L (22-29) H 03/25/22 12:00 Anion Gap 15.9 (5-19) 03/25/22 12:00 BUN 16 mg/dL (6-20) 03/25/22 12:00 Creatinine 0.9 mg/dL (0.7-1.2) 03/25/22 12:00 GFR Calculation 89.7 mL/min (90-130) L 03/25/22 12:00 Glucose 125 mg/dL (65-115) H 03/25/22 12:00 Calculated Osmolality 291 mOsm/kg (285-295) 03/25/22 12:00 Calcium 9.7 mg/dL (8.5-10.5) 03/25/22 12:00 Total Bilirubin 1.0 mg/dL (0.15-1.2) 03/25/22 12:00 AST 27 U/L (0-40) 03/25/22 12:00 ALT 51 U/L (0-41) H 03/25/22 12:00 Alkaline Phosphatase 83 U/L (40-130) 03/25/22 12:00 Troponin T Baseline 13 ng/L (0-15) 03/25/22 12:00 Troponin T 120 Minute 9.84 ng/L (0-15) 03/25/22 13:49 Delta Troponin T -3.16 ABS# (0-10) L 03/25/22 13:49 NT-Pro-B Natriuret Pep 132 pg/mL (0-125) H 03/25/22 12:00 Total Protein 7.6 g/dL (6.6-8.7) 03/25/22 12:00 Albumin 4.4 g/dL (3.5-5.2) 03/25/22 12:00 Globulin 3.2 g/dL (1.3-4.6) 03/25/22 12:00 EKG Data EKG 1: EKG interpretation date: 03/25/22 Interpretation: [address] [place] [address] Electrocardiograph Report Signed Patient: Boris Lauren Unit #: [id number] : 1970 Age/Sex: 51 / M ADM Date: 03/25/22 Loc: ER Room/Bed: Attending Dr: Ordering Provider/Ordering MD: Pablo Mckeon Date of Service: 03/25/22 Procedure(s): ECG 12 lead EKG Accession Number(s): [id number] Report Number: [id number] ? [facility] ? Test Date:? ? 2022-03-25 Pat Name: ? ? Boris Lauren ? Department: ? Patient ID: ? [id number] ? Room: ? Gender: ? ? ? Male ? 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 :? 1970 ? Requested By: Pablo Mckeon Order Number: [id number]? Reading MD: ? Lucille Mccormack M.D. ? Measurements Intervals? [place]? Rate: ? 87 ? P:? 34 NE: ? 157? QRS:? -25 QRSD: ? 99 ? T:? 82 QT: ? 398? QTc:? 480? Interpretive Statements SINUS RHYTHM WITH FREQUENT VENTRICULAR PREMATURE COMPLEXES BORDERLINE LEFT AXIS DEVIATION? [QRS AXIS < -20] LEFT VENTRICULAR HYPERTROPHY AND ST-T CHANGE? [VOLTAGE CRITERIA PLUS ST/T ABNORMALITY] Compared to ECG 03/25/2022 10:49:31 No significant changes Electronically Signed On 03-25-2022 21:08:42 PLANTING SUPERVISOR by Lucille Mccormack M.D. [email or web address] [id number] Dictated By: Lucille Mccormack MD Signed By: Lucille Mccormack MD Signed Date/Time: 03/25/222109 DD/ 1345 Discharge Plan Discharge Patient Disposition: Home Clinical Impression: Compression fracture of thoracolumbar vertebra Qualifiers: Encounter type: initial encounter Fracture type: closed Qualified Code(s): S22.080A - Wedge compression fracture of T11-T12 vertebra, initial encounter for closed fracture Condition: Stable Prescriptions: No Action lisinopril 40 mg tablet 40 mg PO DAILY Qty: 30 5RF ipratropium-albuterol 0.5 mg-3 mg(2.5 mg base)/3 mL solution for nebulization 3 ml inhalation Q4H Qty: 90 0RF prednisone 20 mg tablet 20 mg PO TID Qty: 25 0RF Rx Instructions: 3 tabs x 5 days, 2 tabs x 5 days, 1 tab x 3 days, 1/2 tab x 3 days. amoxicillin-pot clavulanate 875-125 mg tablet 1 tab PO BID Qty: 14 0RF amlodipine 10 mg tablet 10 mg PO DAILY Qty: 30 2RF chlorthalidone 25 mg tablet 25 mg PO DAILY Qty: 30 2RF insulin aspart U-100 [Novolog FlexPen U-100 Insulin] 100 unit/mL (3 mL) insulin pen See Rx Instructions .ROUTE .COMPLEX Qty: 15 0RF Rx Instructions: Inject subcut, 3 times daily with meals, based on sliding scale provided albuterol sulfate 90 mcg/actuation HFA aerosol inhaler 2 inh INHALATION Q4H PRN (Reason: shortness of breath or wheezing) Qty: 18 0RF Discharge Orders: Discharge ED (Routine); Ordered 03/25/22 Ordered By: Pablo Mckeon Referrals: Rafael Jacobson DO [Primary Care Provider] - Discharge Diet: Regular Discharge Activity: Increase activity as tolerated Patient Instructions: Thoracolumbar Fracture (ED), Opioid Safety Activity Restrictions/Additional Instructions: Follow-up with medical provider as directed. Case management should be counting in the next several days to set up an appointment with Dr. Meyer the orthopedic spine doctor. Wear TLSO brace. take medications as prescribed. Return to the ER or your medical provider if condition worsens. Please read and understand discharge instructions. Thank you for choosing [facility] for your healthcare needs today. Please realize this is an emergency room and that we are providing you with a medical screening exam and this may not be complete and all inclusive of all the testing and or work up that you may need to determine your ailment or severity of your illness. It is very important that you follow up as instructed or that you return to the Emergency Department should you have concerns or if your condition changes or worsens in any way. Coding Level of Care Code ED Special Education Bus Driver for Chg Fwd Exam Comprehensive Documented by User: Dariusz Reyes DO 03/26/22 14:10 HPI - Back Pain/Injury General: Chief Complaint: Back Pain/Injury Stated Complaint: Pain in upper back, lung pain Time Seen by Provider: 03/25/22 11:15 [facility] ED PFSH: Medical History Essential hypertension Surgical History History of surgery on left wrist -Has metal plates in his left wrist Family History Father CAD (coronary artery disease) Social History Smoking and tobacco status: current every day smoker cigarettes Packs smoked per day: 1 and smokeless tobacco Alcohol intake: current Alcohol intake frequency: few times a week Alcohol type: hard liquor Course Vital Signs: Vital signs: Vital Signs Temperature 97.7 F 03/25/22 10:40 Pulse Rate 87 03/25/22 15:40 Respiratory Rate 24 H 03/25/22 15:40 Blood Pressure 134/79 03/25/22 15:40 Pulse Oximetry 92 03/25/22 15:40 Oxygen Delivery Me thod 03/25/22 15:40 Oxygen Flow Rate 3 03/25/22 14:18 MDM - Back Pain/Injury Medical Decision Making Patient is a 51-year-old male who comes to the ED with upper back pain. Past medical history of diabetes and COPD. for the past 3 to 4 days patient that he has been having severe pain in between his shoulder blades. Denies any injury, fall or trauma to cause pain. Says pain is constant and denies any relieving factors. Says pain is worse when he tries to lay down. He rates the pain currently a 10 out of 10. Denies any chest pain. Vitals are stable. Patient has some tenderness over T3-T5 and thoracic paraspinal muscle tenderness bilaterally. Rest of exam is benign. Troponins negative. EKG shows sinus rhythm with frequent PVCs. No ST segment elevation or depression seen. Chest x-ray shows no acute findings. CTA of chest shows a T4 compression fracture with no abdominal aortic aneurysm or dissection seen. I placed order with case management for patient be referred to Dr. Meyer the orthospine specialist for follow-up. He was put in a TLSO brace and discharged home with some hydrocodone for pain. He was given strict return to ED precautions. Patient understood and agreed with plan. Chart reviewed and patient discussed with midlevel. Agree with assessment and plan. Labs 03/25/22 12:00 03/25/22 12:00 Radiology Impressions Chest X-Ray 03/25/22 10:49 Impression: Negative chest. Chest/Abdomen/Pelvis CTA 03/25/22 12:43 IMPRESSION: 1. Normal thoracic and abdominal aortas. No dissection or aneurysm. 2. Age-indeterminate T4, 50% compression fracture. New since 10/26/2020. 3. No pneumonia. 4. LEFT adrenal adenoma lipoma. 5. No acute abdominal or pelvic abnormalities are identified. 6. No renal obstruction or appendicitis. Laboratory Results WBC 8.2 10^3/uL (4.0-10.0) 03/25/22 12:00 RBC 5.03 10^6/uL (4.1-5.3) 03/25/22 12:00 Hgb 16.1 g/dL (11.7-16.6) 03/25/22 12:00 Hct 51.0 % (42.0-52.0) 03/25/22 12:00 MCV 101.4 fl (80-94) H 03/25/22 12:00 MCH 32.0 pg (28.0-34.0) 03/25/22 12:00 MCHC 31.6 g/dL (30.0-36.0) 03/25/22 12:00 RDW 13.2 % (12.1-15.1) 03/25/22 12:00 Plt Count 229 10^3/cmm (130-400) 03/25/22 12:00 MPV 11.0 fL (7.4-10.4) H 03/25/22 12:00 Neut % (Auto) 70.3 % 03/25/22 12:00 Lymph % (Auto) 19.6 % 03/25/22 12:00 Chester % (Auto) 7.4 % 03/25/22 12:00 Eos % (Auto) 2.1 % 03/25/22 12:00 Baso % (Auto) 0.5 % 03/25/22 12:00 Neut # (Auto) 5.73 10^3/uL (1.8-7.7) 03/25/22 12:00 Lymph # (Auto) 1.6 10^3/uL (0.8-4.8) 03/25/22 12:00 Chester # (Auto) 0.6 10^3/uL (0.2-0.9) 03/25/22 12:00 Eos # (Auto) 0.2 10^3/uL (0.0-0.8) 03/25/22 12:00 Baso # (Auto) 0.0 10^3/uL (0.0-0.1) 03/25/22 12:00 Nucleated RBC % (auto) 0 % 03/25/22 12:00 Nucleated RBCs # 0.0 /100WBC 03/25/22 12:00 Sodium 139 mmol/L (136-145) 03/25/22 12:00 Potassium 3.9 mmol/L (3.5-5.1) 03/25/22 12:00 Chloride 96 mmol/L (98-107) L 03/25/22 12:00 Carbon Dioxide 31 mmol/L (22-29) H 03/25/22 12:00 Anion Gap 15.9 (5-19) 03/25/22 12:00 BUN 16 mg/dL (6-20) 03/25/22 12:00 Creatinine 0.9 mg/dL (0.7-1.2) 03/25/22 12:00 GFR Calculation 89.7 mL/min (90-130) L 03/25/22 12:00 Glucose 125 mg/dL (65-115) H 03/25/22 12:00 Calculated Osmolality 291 mOsm/kg (285-295) 03/25/22 12:00 Calcium 9.7 mg/dL (8.5-10.5) 03/25/22 12:00 Total Bilirubin 1.0 mg/dL (0.15-1.2) 03/25/22 12:00 AST 27 U/L (0-40) 03/25/22 12:00 ALT 51 U/L (0-41) H 03/25/22 12:00 Alkaline Phosphatase 83 U/L (40-130) 03/25/22 12:00 Troponin T Baseline 13 ng/L (0-15) 03/25/22 12:00 Troponin T 120 Minute 9.84 ng/L (0-15) 03/25/22 13:49 Delta Troponin T -3.16 ABS# (0-10) L 03/25/22 13:49 NT-Pro-B Natriuret Pep 132 pg/mL (0-125) H 03/25/22 12:00 Total Protein 7.6 g/dL (6.6-8.7) 03/25/22 12:00 Albumin 4.4 g/dL (3.5-5.2) 03/25/22 12:00 Globulin 3.2 g/dL (1.3-4.6) 03/25/22 12:00 Discharge Plan Discharge Patient Disposition: Home Clinical Impression: Compression fracture of thoracolumbar vertebra Qualifiers: Encounter type: initial encounter Fracture type: closed Qualified Code(s): S22.080A - Wedge compression fracture of T11-T12 vertebra, initial encounter for closed fracture Condition: Stable Prescriptions: No Action lisinopril 40 mg tablet 40 mg PO DAILY Qty: 30 5RF ipratropium-albuterol 0.5 mg-3 mg(2.5 mg base)/3 mL solution for nebulization 3 ml inhalation Q4H Qty: 90 0RF prednisone 20 mg tablet 20 mg PO TID Qty: 25 0RF Rx Instructions: 3 tabs x 5 days, 2 tabs x 5 days, 1 tab x 3 days, 1/2 tab x 3 days. amoxicillin-pot clavulanate 875-125 mg tablet 1 tab PO BID Qty: 14 0RF amlodipine 10 mg tablet 10 mg PO DAILY Qty: 30 2RF chlorthalidone 25 mg tablet 25 mg PO DAILY Qty: 30 2RF insulin aspart U-100 [Novolog FlexPen U-100 Insulin] 100 unit/mL (3 mL) insulin pen See Rx Instructions .ROUTE .COMPLEX Qty: 15 0RF Rx Instructions: Inject subcut, 3 times daily with meals, based on sliding scale provided albuterol sulfate 90 mcg/actuation HFA aerosol inhaler 2 inh INHALATION Q4H PRN (Reason: shortness of breath or wheezing) Qty: 18 0RF Discharge Orders: Discharge ED (Routine); Ordered 03/25/22 Ordered By: Pablo Mckeon Referrals: Rafael Jacobson, [Primary Care Provider] - Discharge Diet: Regular Discharge Activity: Increase activity as tolerated Patient Instructions: Thoracolumbar Fracture (ED), Opioid Safety Activity Restrictions/Additional Instructions: Follow-up with medical provider as directed. Case management should be counting in the next several days to set up an appointment with Dr. Meyer the orthopedic spine doctor. Wear TLSO brace. take medications as prescribed. Return to the ER or your medical provider if condition worsens. Please read and understand discharge instructions. Thank you for choosing [facility] for your healthcare needs today. Please realize this is an emergency room and that we are providing you with a medical screening exam and this may not be complete and all inclusive of all the testing and or work up that you may need to determine your ailment or severity of your illness. It is very important that you follow up as instructed or that you return to the Emergency Department should you have concerns or if your condition changes or worsens in any way. Coding Level of Care Code ED Special Education Bus Driver for Sruthi Sol Exam Comprehensive
[2022-03-25 12:10] LABS: Basophils % 0.5 %; Eosinophils # 0.2 10^3/uL (0.0-0.8); Eosinophils % 2.1 %; Hemoglobin 16.1 g/dL (11.7-16.6); Lymphocytes # 1.6 10^3/uL (0.8-4.8); Lymphocytes % 19.6 %; Mean Corpuscular HGB Conc 31.6 g/dL (30.0-36.0); Mean Corpuscular Volume 101.4 fl (80-94); Monocytes # 0.6 10^3/uL (0.2-0.9); Monocytes % 7.4 %; Neutrophils # 5.73 10^3/uL (1.8-7.7); Neutrophils % 70.3 %; Nucleated Red Blood Cells % 0 %; Platelet Count 229 10^3/cmm (130-400); Red Blood Count 5.03 10^6/uL (4.1-5.3); Red Cell Distribution Width 13.2 % (12.1-15.1); White Blood Count 8.2 10^3/uL (4.0-10.0)
[2022-03-25] MEDS: ondansetron 2 mg/ML SDV 2 mL 4 MG IVP (12:17)
[2022-03-25 12:27] VITALS: RESP 17
[2022-03-25] MEDS: morphine 4 mg/mL SDV 1 mL 2 MG IVP (12:27)
[2022-03-25 12:37] VITALS: BP 119/78; PULSE 85; RESP 23; O2SAT 92
[2022-03-25 12:37] LABS: Troponin(5th) Baseline 13 ng/L (0-15)
--- NOTE | 2022-03-25 12:43 | CT_ITS ---
WS: [id number] CT ANGIOGRAPHY chest, abdomen and pelvis WITH REFORMATS HISTORY: severe mid back pain, no injury or trauma TECHNIQUE: Contiguous axial images are obtained through the chest during arterial injection of intrav enous contrast. Images are reconstructed to evaluate the pulmonary arteries. MIP imaging also reviewe d. All CT scans at [facility] use at least one of these dose optimization techniques: automat ed exposure control; mA and/or kV adjustment per patient size (includes targeted exams where dose is matched to clinical indication); or iterative reconstruction. CONTRAST: Omnipaque 350; 100 mL IV. DLP: 1505.76 mGy.cm COMPARISON: Chest CT 10/26/2020 Good enhancement of the thoracic aorta, pre and postcontrast imaging was obtained. There is no dissec tion or aneurysm. Pulmonary artery size is normal. There is no mediastinal or hilar adenopathy. Heart is normal size. No pericardial or pleural effusion. Mild dependent changes at the lung bases. Suprarenal and infrarenal abdominal aorta is normal caliber. No dissection or aneurysm. No significan t atherosclerotic plaque. There is normal enhancement of the kidneys. Early enhancement of the viscer al organs of the abdomen is negative for acute process. Fatty containing LEFT adrenal mass measures 3 .1 x 2.4 cm consistent with an benign adrenal myelolipoma. The gallbladder is negative. No evidence for pancreatitis. No ascites. No GI tract obstruction. Ora l appendix. There are a few scattered sigmoid diverticula without acute diverticulitis. Urinary bladd er is negative. 50% compression T4 vertebral body. Age indeterminate. Correlate with area of pain. No additional frac tures are evident. Fracture is new since 10/26/2020. CT[facility] [id number] IMPRESSION: 1. Normal thoracic and abdominal aortas. No dissection or aneurysm. 2. Age-indeterminate T4, 50% compression fracture. New since 10/26/2020. 3. No pneumonia. 4. LEFT adrenal adenoma lipoma. 5. No acute abdominal or pelvic abnormalities are identified. 6. No renal obstruction or appendicitis.
[2022-03-25 12:47] LABS: Alanine Aminotransferase 51 U/L (0-41); Albumin Level 4.4 g/dL (3.5-5.2); Alkaline Phosphatase 83 U/L (40-130); Anion Gap 15.9 (5-19); Aspartate Amino Transferase 27 U/L (0-40); Blood Urea Nitrogen 16 mg/dL (6-20); Calcium 9.7 mg/dL (8.5-10.5); Carbon Dioxide 31 mmol/L (22-29); Chloride 96 mmol/L (98-107); Globulin 3.2 g/dL (1.3-4.6); Glomerular Filtration Rate 89.7 mL/min (90-130); Glucose 125 mg/dL (65-115); NT Pro B Type Natriuretic Pept 132 pg/mL (0-125); Osmolality Calculated 291 mOsm/kg (285-295); Potassium 3.9 mmol/L (3.5-5.1); Sodium 139 mmol/L (136-145); Total Protein 7.6 g/dL (6.6-8.7)
--- NOTE | 2022-03-25 13:21 | ECG_ITS ---
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 Measurements Intervals [place] Rate: 87 P: 34 ND: 157 QRS: -25 QRSD: 99 T: 82 QT: 398 QTc: 480 Interpretive Statements SINUS RHYTHM WITH FREQUENT VENTRICULAR PREMATURE COMPLEXES BORDERLINE LEFT AXIS DEVIATION [QRS AXIS < -20] LEFT VENTRICULAR HYPERTROPHY AND ST-T CHANGE [VOLTAGE CRITERIA PLUS ST/T ABNORMALITY] Compared to ECG 03/25/2022 10:49:31 No significant changes Electronically Signed On 03-25-2022 21:08:42 SR SOLUTIONS CONSULTANT by Lucille Mccormack M.D. [id number]
[2022-03-25] MEDS: iohexol 350 mg/mL 500 mL Btl (per mL) IV ×2 (13:37→13:38)
[2022-03-25 14:18] VITALS: BP 133/76; PULSE 85; RESP 22; O2SAT 94
[2022-03-25 14:21] VITALS: RESP 21; O2SAT 96
[2022-03-25] MEDS: morphine 4 mg/mL SDV 1 mL IVP (14:21)
[2022-03-25 14:29] LABS: Troponin 5 2HR 9.84 ng/L (0-15)
[2022-03-25 14:37] LABS: Troponin 5 2HR Delta -3.16 ABS# (0-10)
[2022-03-25 15:40] VITALS: BP 134/79; PULSE 87; RESP 24; O2SAT 92
--- NOTE | 2022-03-26 10:24 | DCPLANNER ---
Addendum entered by Shayla Hernandez 05/04/22 07:35: Patient had an appointment at ortho - patient did attend appointment Addendum entered by Shayla Hernandez 03/26/22 11:43: Patient has a follow up appointment scheduled for , April 01, 2022 at 3:30 with Devonte Newton at ortho. Clinic will call patient with appointment information. Original Note: manager drilling had message to schedule a follow up appointment for patient with ortho. manager drilling sent patients information to the front office staff at ortho. Patients information will be printed and reviewed. Clinic will call patient with appointment information.
== END 2022-03-25 15:38 | disposition home or self-care (01) ==
PROVIDERS: Emergency Provider Physician Assistant; PCP Family Medicine
DX: S22.080A Wedge compression fracture of T11-T12 vertebra, initial encounter for closed fracture (principal); X58.XXXA Exposure to other specified factors, initial encounter
CPT/HCPCS: 36415; 71045; 71275; 74174; 80053; 83880; 84484; 85025; 93005; 96374; 96375; 96376; 97760; 99285; J2270; J2405; L0456; Q9967

== ENCOUNTER → 2022-04-06 15:13 | Outpatient (BNVA) | payer MEDICAID, SELFPAY | PROVIDERS: PCP Family Medicine; Referring Provider Physician Assistant; Visit Provider Physician Assistant | DX: S22.000A Wedge compression fracture of unspecified thoracic vertebra, initial encounter for closed fracture (principal); X58.XXXA Exposure to other specified factors, initial encounter; M40.294 Other kyphosis, thoracic region; M41.34 Thoracogenic scoliosis, thoracic region | CPT/HCPCS: 72080 ==

== ENCOUNTER 2022-06-03 15:12 | Outpatient (CLI) | payer MEDICAID, SELFPAY ==
--- NOTE | 2022-06-03 15:15 | MR_ITS ---
WS: [id number] MRI THORACIC SPINE noncontrast. HISTORY: compression fracture COMPARISON: CT 03/25/2022 TECHNIQUE: Multiplanar sequences are performed in sagittal and axial planes. Focal kyphosis centered at T4 at the site of the prior severe vertebral planar compression fracture. 5.6 mm retropulsion of the posterior vertebral body. Severe compression fracture has progressed since 03/25/2022. There is contact on the ventral thecal sac with slight displacement of the thoracic cord. There is edema within the posterior elements bilaterally of T4 and on the RIGHT of T5. Bilateral foraminal narrowing and encroachment at T4-5. Greatest on the RIGHT. There is a very small amount of edema within the inferior endplate of T4 and the superior endplate of T5. No additional fractures or abnormality identified. No signal abnormality definitely visualized w ithin the cord although image quality is degraded due to patient's pain and difficulty remaining stil l. MR/MR thoracic spin wo con* [id number] IMPRESSION: 1. Progression of the vertebral planar compression fracture at T4 since 03/25/19. 2. Retropulsion of the T4 vertebral body by 5.6 mm with contact and mild displ acement of the ventral thoracic cord, slightly greater to the RIGHT of midline. 3. Marrow edema in the posterior elements bilaterally of T4 and on the RIGHT o f T5. 4. Focal kyphosis centered at the T4 level. 5. No definite signal abnormality within the cord although there is displaceme nt.
== END 2022-06-03 15:13 | disposition home or self-care (01) ==
LOC: RAD 15:14
PROVIDERS: PCP Family Medicine; Visit Provider Physician Assistant
DX: S22.080A Wedge compression fracture of T11-T12 vertebra, initial encounter for closed fracture (principal); M40.204 Unspecified kyphosis, thoracic region; X58.XXXA Exposure to other specified factors, initial encounter; Y93.9 Activity, unspecified; Y92.89 Other specified places as the place of occurrence of the external cause
CPT/HCPCS: 72146

== ENCOUNTER 2022-06-18 08:45 | Outpatient (CLI) | payer MEDICAID, SELFPAY ==
[2022-06-18 09:16] LABS: Basophils % 0.7 %; Eosinophils # 0.2 10^3/uL (0.0-0.8); Eosinophils % 3.1 %; Hematocrit 47.8 % (42.0-52.0); Hemoglobin 14.8 g/dL (11.7-16.6); Lymphocytes # 1.3 10^3/uL (0.8-4.8); Lymphocytes % 21.9 %; Mean Corpuscular Hemoglobin 31.9 pg (28.0-34.0); Mean Platelet Volume 10.7 fL (7.4-10.4); Monocytes # 0.4 10^3/uL (0.2-0.9); Monocytes % 7.4 %; Neutrophils # 3.87 10^3/uL (1.8-7.7); Neutrophils % 66.6 %; Nucleated Red Blood Cells % 0 %; Platelet Count 204 10^3/cmm (130-400); Red Blood Count 4.64 10^6/uL (4.1-5.3); Red Cell Distribution Width 13.2 % (12.1-15.1); White Blood Count 5.8 10^3/uL (4.0-10.0)
[2022-06-18 09:37] LABS: Anion Gap 13.4 (5-19); Blood Urea Nitrogen 10 mg/dL (6-20); Calcium 8.9 mg/dL (8.5-10.5); Carbon Dioxide 32 mmol/L (22-29); Chloride 100 mmol/L (98-107); Glomerular Filtration Rate 119.9 mL/min (90-130); Glucose 178 mg/dL (65-115); Osmolality Calculated 295 mOsm/kg (285-295); Potassium 4.4 mmol/L (3.5-5.1); Sodium 141 mmol/L (136-145)
== END 2022-06-18 08:46 | disposition home or self-care (01) ==
LOC: LAB 08:50
PROVIDERS: PCP Family Medicine; Visit Provider Physician Assistant
DX: Z01.89 Encounter for other specified special examinations (principal)
CPT/HCPCS: 80048; 85025

== ENCOUNTER 2022-07-07 15:06 | Inpatient (IN) | payer MEDICAID, SELFPAY ==
[2022-06-30 10:21] VITALS: BMI 48.0
--- NOTE | 2022-06-30 14:56 | ANES.PREANE2 ---
Pre-Anesthetic Assessment Height/Weight: Height 1.93 m Weight 179.169 kg Operation Date: 07/07/22 07:00 Proposed Procedures p Spinal Fusion:T1-T7 PSF, 08637, 68756 x 6, 27881,83015,83816,S22.040D(Not Applicable) - Dagoberto Meyer DO Familial anesthetic complications: none Was Beta Nicole taken within 24 hours: N/A Was Clonidine taken within 24 hours: N/A Social Alcohol and Tobacco Exam alert, oriented x 3 and regular rate & rhythm Airway Submandibular: within normal limits Cervical ROM: within normal limits Mallampati: Class II Dentition: chipped Comments: Comments: Very poor dentition, multiple missing CV/HEM Hypertension Metabolic Diabetes Mellitus, Hyperlipidemia and Morbid Obesity Musc/skel Lower Back Pain and Osteoarthritis/DJD Anesthetic Plan ASA status: 3 Anesthesia: General Other: Discussed A.line and transfusion which the patient was OK with. Medications/Allergies Home Medications Medication Instructions Recorded Confirmed Last Taken Type albuterol sulfate 90 mcg/actuation 2 inh inhalation Q4H PRN shortness 03/02/22 06/30/22 06/29/22 Rx aerosol inhaler of breath or wheezing #18 grams lisinopril 40 mg tablet 40 mg PO DAILY #30 tabs 03/04/22 06/30/22 06/30/22 Rx amlodipine 10 mg tablet 10 mg PO DAILY #30 tabs 03/11/22 06/30/22 06/30/22 Rx chlorthalidone 25 mg tablet 25 mg PO DAILY #30 tabs 03/11/22 06/30/22 06/30/22 Rx hydrocodone 5 mg-acetaminophen 325 1 - 2 tab PO Q6H PRN pain 7 days 06/23/22 06/30/22 06/30/22 Rx mg tablet #40 tabs intraoperative neuromonitoring #1 ea 06/23/22 06/24/22 Unknown Rx Allergies Allergy/AdvReac Type Severity Reaction Status Date / Time No Known Allergies Allergy Verified 06/24/22 15:21 COUNT INCLUDES THE [facility] Anesthesia Medical History Essential hypertension Surgical History History of surgery on left wrist -Has metal plates in his left wrist Family History Father CAD (coronary artery disease) Social History Smoking and tobacco status: current every day smoker cigarettes Packs smoked per day: 1 and smokeless tobacco Alcohol intake: current Alcohol intake frequency: few times a week Alcohol type: hard liquor Substance/Drug Use: never Data Anesthesia Cardiac Studies: No Data to Display
[2022-07-07] VITALS (39 sets, daily range): BP systolic 110–155; BP diastolic 65–124; PULSE 80–102; RESP 15–93; TEMP 36.3–36.8; O2SAT 87–98; BMI 48.0
--- NOTE | 2022-07-07 | XR_ITS ---
WS: [id number] Thoracic spine, C-arm fluoroscopy view, 07/07/2022 Clinical Data: T1-T6 instrumented fusion Comparison: Thoracolumbar junction x-ray, 04/06/2022 Findings: Dr. Meyer performed decompressive thoracic surgery. XR/XR thoracic spine 1ort [id number] Impression: Thoracic surgery vertebral decompression.
[2022-07-07] MEDS: sodium chloride 0.9% 1,000 ML 30 ML IV (06:20)
[2022-07-07] MEDS: albuterol 2.5 mg/3 mL Neb INHALATION (06:38)
--- NOTE | 2022-07-07 06:44 | W.PM.OPSUD ---
Surgery/Procedure H&P Update DATE OF PROCEDURE: July 07, 2022 DATE H&P PERFORMED: 06/17/22 H&P UPDATE INFORMATION: I have reviewed H&P completed within last 30 days, I have examined patient prior to procedure and No changes to prior documentation PREOP DIAGNOSIS: Thoracic compression fracture, PLANNED PROCEDURE: Operation Date: 07/07/22 07:00 Proposed Procedures p Spinal Fusion:T1-T7 PSF, 94334, 07907 x 6, 46949,55534,84641,S22.040D(Not Applicable) - Dagoberto Meyer DO
[2022-07-07] MEDS: HYDROmorphone 1 mg/mL INJ 1 mL 0.5 MG IVP (06:49)
[2022-07-07 06:51] LABS: Basophils # 0.1 10^3/uL (0.0-0.1); Basophils % 0.6 %; Eosinophils # 0.2 10^3/uL (0.0-0.8); Eosinophils % 2.8 %; Hematocrit 50.9 % (42.0-52.0); Hemoglobin 16.1 g/dL (11.7-16.6); Lymphocytes # 1.7 10^3/uL (0.8-4.8); Lymphocytes % 20.8 %; Mean Corpuscular HGB Conc 31.6 g/dL (30.0-36.0); Mean Corpuscular Hemoglobin 31.6 pg (28.0-34.0); Mean Platelet Volume 11.2 fL (7.4-10.4); Monocytes # 0.7 10^3/uL (0.2-0.9); Neutrophils % 67.4 %; Nucleated Red Blood Cells % 0 %; Platelet Count 228 10^3/cmm (130-400); Red Blood Count 5.09 10^6/uL (4.1-5.3); Red Cell Distribution Width 13.5 % (12.1-15.1); White Blood Count 8.2 10^3/uL (4.0-10.0)
--- NOTE | 2022-07-07 06:53 | P.ANESUD_ITS ---
Pre-Anesthetic Update Pre-Anesthetic Assessment: Date of Surgery/Procedure: 07/07/22 Preop Payton gnosis: Thoracic compression fracture, Proposed Procedure: Operation Date: 07/07/22 07:00 Proposed Procedures p Spinal Fusion:T1-T7 PSF, 06012, 33298 x 6, 29576,14660,52156,S22.040D(Not Applicable) - Dagoberto Meyer, DO Any changes to Pre-Anesthetic Assessment?: No Last Intake: Intake Last Liquid Date 07/06/22 Last Liquid Time 22:30 Last Solid Date 07/07/22 Last Solid Time 22:30 Labs Last 48hrs: Short CBC 07/07/22 Range/Units 06:30 WBC 8.2 (4.0-10.0) 10^3/ uL Hgb 16.1 (11.7-16.6) g/dL Hct 50.9 (42.0-52.0) % MCV 100.0 H (80-94) fl Plt Count 228 (130-400) 10^3/c mm Neut % (Auto) 67.4 % Neut # (Auto) 5.50 (1.8-7.7) 10^3/u L Vitals: Temperature 97.4 F L 07/07/22 05:56 Temperature Source Temporal Artery S can 07/07/22 05:56 Pulse Rate 102 H 07/07/22 06:41 Pulse Rhythm Regular 07/07/22 06:15 Pulse Strength 3+ Normal 07/07/22 06:15 Respiratory Rate 18 07/07/22 06:49 Respiratory Depth Normal 07/07/22 06:49 Blood Pressure 155/124 07/07/22 05:56 Blood Pressure Altagracia n 134 07/07/22 05:56 Pulse Oximetry 98 07/07/22 06:38 Oxygen Delivery Me thod Room Air 07/07/22 06:38 Exam: Pre-Anes Outpt Exam: alert, oriented x 3, clear to auscultation bilaterally and regular rate & rhythm Cardiac Studies: No Data to Display
[2022-07-07 07:11] LABS: Alanine Aminotransferase 70 U/L (0-41); Albumin Level 3.9 g/dL (3.5-5.2); Alkaline Phosphatase 102 U/L (40-130); Anion Gap 14.2 (5-19); Aspartate Amino Transferase 77 U/L (0-40); Blood Urea Nitrogen 13 mg/dL (6-20); Calcium 9.2 mg/dL (8.5-10.5); Carbon Dioxide 30 mmol/L (22-29); Chloride 94 mmol/L (98-107); Globulin 3.4 g/dL (1.3-4.6); Glomerular Filtration Rate 119.9 mL/min (90-130); Glucose 172 mg/dL (65-115); Osmolality Calculated 282 mOsm/kg (285-295); Potassium 4.2 mmol/L (3.5-5.1); Sodium 134 mmol/L (136-145); Total Bilirubin 0.6 mg/dL (0.15-1.2); Total Protein 7.3 g/dL (6.6-8.7)
[2022-07-07] MEDS: ceFAZolin 2,000 MG in sodium chloride 0.9% (plus) 50 ML 100 MG IV ×3 (07:12→22:42)
--- NOTE | 2022-07-07 08:30 | SUR.OPER ---
attempted to contact . no answer.
[2022-07-07] MEDS: vancomycin 1,000 MG SDV 1000 MG XX (08:36)
[2022-07-07] MEDS: lidocaine-epi 1% 20 mL INJ INJECTION (08:36)
--- NOTE | 2022-07-07 09:24 | SUR.OPER ---
spoke with in pathology, she advised to place specimen in formalin.
--- NOTE | 2022-07-07 10:38 | P.OP_ITS ---
Operative Report Date of procedure: July 07, 2022 Pre-op diagnosis: Preop Diagnosis Thoracic wedge traumatic compression fractureat C4, Post-op diagnosis: same Procedure done: 1. T1- T6 Posterior spine fusion 2. T1- T6 posterior spine instrumentation 3. T4/5 laminectomy with partial facetectomy 4. Use of spinal navigation stereotactic for spine 5. use of allograft 6. use of auto graft from same incision Pathology: bx of T4 sent Surgeon: Dagoberto Meyer Point Of Care Specialist: Devonte Newton Point Of Care Specialist: The executive assistant to president, Devonte Newton, PAC was needed for his expertise under the microscope. He was important and necessary throughout the procedure to complete in a safe and timely manner. He assisted with patient positioning prepping and draping tissue retraction suctioning of the operative field pro tection of the dural sac and tissue closure Estimated blood loss (mL): 1,200 Procedure: 1. T1- T6 Posterior spine fusion 2. T1- T6 posterior spine instrumentation 3. T4/5 laminectomy with partial facetectomy 4. Use of spinal navigation stereotactic for spine 5. use of allograft 6. use of auto graft from same incision Patient is brought to the procedure after undergoing anesthesia patient was placed in prone position on his pressure well-padded patient was prepped and draped normal sterile fashion. Skin incision was made from T1 down to T8. Subperiosteal dissection was made out to the transverse processes of T1 down to T6. Once this was completed then the fiducial was attached to the spinous process of T8. The fiducial was attached for the use of computer navigation. The C-arm was brought in and spun around the patient information from the C-arm was loaded into the computer through the fiducial allowing for the use of computer navigation. She was brought to placing the pedicle screws. This was done using the awl gearshift probe which was linked to computer navigation. Followed by the pedicle feeler. Followed by the placement of screw using computer navigation. This process was done at T1 bilaterally, T2 bilaterally, T3 bilaterally, T5 bilaterally, and T6 bilaterally,. She was brought to doing a biopsy at T4. This was done by getting the starting point started with the gearshift probe using the computer navigation and then tapping the biopsy needle in in order to get a core biopsy. Core biopsy was sent to pathology. Next the rods were then connected bilaterally to the T1-T6 screws. The end caps were locked into position. And then torqued and locked. Next attention was brought to doing the laminectomy. The microscope was brought in The spinous process of T4 was taken down. Then the laminectomy was completed with high-speed bur curved curettes and Kerrison rongeurs. The medial aspect of facet was taken down at T4-T5. And up to the lamina of L3 and part of the spinous process of L3 was taken down as well. The ligamentum flavum was taken down completely and then the dura was exposed and found to be in good repair. Extension was brought to decorticating the bone this was done of the lamina and transverse processes from T1 down to T6. And then the ostial amp bone graft and autograft from the lamina were packed in the lateral gutters. We was then closed in layered fashion with 0 Vicryl 2-0 Vicryl and Monocryl suture. Sterile dressings were applied and patient was transferred to the PACU in stable condition.
--- NOTE | 2022-07-07 10:57 | PC.NURSE ---
Patient placed on BiPap immediately upon arrival
[2022-07-07 11:03] LABS: Glucose Point of Care 218 mg/dL (70-110)
[2022-07-07] MEDS: fentaNYL 50 mcg/mL INJ 2mL IVP ×2 (11:04→11:16)
--- NOTE | 2022-07-07 11:08 | PC.NURSE ---
Patient requesting bipap off. COAGULATING OPERATOR @ bedside. Placed on simple mask @ 8l/min
--- NOTE | 2022-07-07 11:13 | PC.NURSE ---
maintaining SaO2 of 90-92 % on mask/8 liters
--- NOTE | 2022-07-07 11:32 | PC.NURSE ---
SaO2 remaining 92-94% on simple mask. Transitioned to 5 liters per NC. SaO2 maintaining 90-92 %
--- NOTE | 2022-07-07 11:45 | PC.NURSE ---
Arterial line removed by Keya Singh. Pressure held to obtain hemostasis
[2022-07-07] MEDS: morphine 4 mg/mL SDV 1 mL 2 MG IVP (12:02)
[2022-07-07] MEDS: ondansetron 2 mg/ML SDV 2 mL 4 MG IVP (12:02)
[2022-07-07] MEDS: ketorolac 30 mg/mL INJ IVP (12:03)
[2022-07-07] MEDS: HYDROcodone-acetaminophen 10-325 mg Tablet PO (12:05)
--- NOTE | 2022-07-07 14:27 | ANE.PACU2 ---
Inpatient post-anesthesia follow up: Airway intact: Yes Vital signs: Temperature 97.5 F Pulse Rate 93 Respiratory Rate 26 Blood Pressure 134/84 Pulse Oximetry 89 Oxygen Delivery Me thod Nasal Cannula Oxygen Flow Rate 6 Fraction of Inspir ed Oxygen 60 Hydration adequate: Yes Nausea and vomiting: No Pain level: 1 Mental status: Baseline
[2022-07-07] MEDS: lactated ringers 1,000 ML 90 ML IV (15:28)
[2022-07-07] MEDS: docusate sodium 100 mg Capsule PO (17:43)
[2022-07-08] VITALS (7 sets, daily range): BP systolic 123–160; BP diastolic 73–78; PULSE 87–88; RESP 16–18; TEMP 36.7–37.1; O2SAT 84–94
[2022-07-08] MEDS: lactated ringers 1,000 ML 90 ML IV (03:09)
[2022-07-08] MEDS: HYDROcodone-acetaminophen 10-325 mg Tablet PO (03:14)
[2022-07-08] MEDS: ceFAZolin 2,000 MG in sodium chloride 0.9% (plus) 50 ML 100 MG IV (06:24)
--- NOTE | 2022-07-08 07:14 | P.PN_ITS ---
Subjective Subjective: POD 1 Patient reports improving her back pain. Denies any chest pain, shortness of breath, headaches. Vitals/I&O/Wt Last Vital Signs Temp 98.3 F 07/08/22 04:00 Pulse 87 07/08/22 04:00 Resp 16 07/08/22 04:00 BP 123/73 07/08/22 04:00 Pulse Ox 91 07/08/22 04:00 O2 Del Method Nasal Cannula 07/07/22 20:04 O2 Flow Rate 5 07/07/22 20:04 FiO2 60 07/07/22 10:52 07/07/22 07/08/22 07/08/22 22:59 06:59 14:59 Intake Total 1010 / 4660 1170 / 5830 Output Total 160 / 1160 100 / 1260 Balance 850 / 3500 1070 / 4570 Weight last 48 hrs Weight 395 lb Physical Exam Narrative: Patient presents alert and oriented x3 with a good general appearance normal mood and affect. Normal coordination normal stability. Mild tenderness around the incisional site with the incision appear to be clean and dry with Hemovac intact. No signs of erythema or drainage. No signs of infection. Patient denies any fevers or chills. 5/5 motor strength both lower extremities with negative straight leg raise bilaterally. Calves are supple no medial thigh tenderness. Pulses are 2+ at the dorsalis pedis and posterior tibial region. Good capillary refill throughout normal sensation light touch both lower extremities. Data 07/07/22 06:30 07/07/22 06:30 A&P Assessment and plan (1) S/P spinal fusion: PostPhysical therapy to work with mobilization. Discontinue Hemovac drain. Continue incentive spirometry at home for pulmonary toilet. Continue walking program with no bending lifting or twisting. We will see him back in the office in 1 week's time for operative follow-up and he will call if he is having problems. Discharged with hydrocodone tens to the [facility] pharmacy. Attestations Medical Necessity Statement*: Discharge later today when stable Coding Level of Care Code Acute Code for Chg Fwd Diagnoses S/P spinal fusion Z98.1
[2022-07-08] MEDS: amlodipine 10 mg Tablet PO (08:55)
[2022-07-08] MEDS: chlorthalidone 25 mg Tablet PO (08:55)
[2022-07-08] MEDS: lisinopril 20 mg Tablet 40 MG PO (08:55)
[2022-07-08] MEDS: docusate sodium 100 mg Capsule PO (08:55)
--- NOTE | 2022-07-08 12:27 | PC.CHAP ---
Pastoral Care Encounter/Spiritual Assessment Type of Contact [x] Declined systems qa analyst visit [] Patient/Family/Request visit [] Outpatient visit [] Follow-up visit [] Physician referral [] Code/Alert [x] Routine visit [] Staff referral [] Actively dying [] Patient sleeping [] Family support [] [] Out of room [] Palliative care [] [x] Receiving care in room [] Pre-surgical visit [] Trauma [] Long length of stay [] ICU visit [] Other: Relational/Emotional Strength [] Patient feels connected with others/family/visitors/staff [] Distress [] Loneliness/isolation [] Abandonment Spirituality of Patient [] Person of Zahraa [] Attends [employer] of their [place] [] Believes in Prayer [] Reads Bible or Yazdanism materials [] There are Spiritual issues to be addressed Manager Access Interventions [] Prayer [] Active listening [] Non-anxious presence [] Spiritual/emotional support [] Crisis/trauma care [] Spiritual counseling [] Bereavement support [] Provided bereavement packet [] Provided Bible/devotional materials [] Provided toy/stuffed animal, coloring book to patient or family member [] Provided Communion [] Anointing/[place] [] Salvation [] Completed spiritual assessment [] Other: Impact on Illness or Injury [] Angry [] Fearful [] Anxious [] Often cries [] Exhaustion [] Unable to work [] Unable to attend catholic [] Unable to walk/stand [] Unable to read [] Unable to drive [] Unable to eat/drink [] Unable to sleep [] Unable to be with family [] Patient intubated [] Other: Summary Declined systems qa analyst visit Time spent with patient 5 mins
--- NOTE | 2022-07-08 14:49 | PC.SOCIAL ---
Charge nurse stated patient requests HOME for Oxygen. Order sent to HOME and Cyber access obtained. Patient qualified for 4L
== END 2022-07-08 16:30 | disposition home or self-care (01) | DRG 460 ==
LOC: MEDSURG 15:07
PROVIDERS: Admitting Provider Orthopaedic Surgery; PCP Family Medicine; Visit Provider Orthopaedic Surgery
PROC: 0RG707J Fusion of 2 to 7 Thoracic Vertebral Joints with Autologous Tissue Substitute, Posterior Approach, Anterior Column, Open Approach (ICD-10-PCS; principal; 2022-07-07 07:00)
DX: S22.040A Wedge compression fracture of fourth thoracic vertebra, initial encounter for closed fracture (principal); X58.XXXA Exposure to other specified factors, initial encounter; Z87.01 Personal history of pneumonia (recurrent); F17.210 Nicotine dependence, cigarettes, uncomplicated; Z79.51 Long term (current) use of inhaled steroids; Z79.891 Long term (current) use of opiate analgesic; I10 Essential (primary) hypertension
CPT/HCPCS: 36416; 72020; 76000; 80053; 82962; 85025; 86850; 86900; 88307; 88311; 94640; 94660; 94760; 97161; 97530; C1713; J0330; J0690; J1100; J1170; J1885; J2250; J2270; J2405; J2704; J2710; J3010; J3370; J3490; J7030; J7120; J7613; P9045

== ENCOUNTER → 2022-07-20 10:06 | Outpatient (BNVA) | payer MEDICAID, SELFPAY | PROVIDERS: PCP Family Medicine; Visit Provider Physician Assistant | DX: Z98.1 Arthrodesis status (principal); X58.XXXA Exposure to other specified factors, initial encounter; S22.000A Wedge compression fracture of unspecified thoracic vertebra, initial encounter for closed fracture | CPT/HCPCS: 72070 ==

== ENCOUNTER → 2022-09-14 13:49 | Outpatient (BNVA) | payer MEDICAID, SELFPAY | PROVIDERS: PCP Family Medicine; Visit Provider Physician Assistant | DX: Z98.1 Arthrodesis status (principal) | CPT/HCPCS: 72070 ==

== ENCOUNTER → 2022-11-01 01:45 | Outpatient (BNVA) | payer MEDICAID, SELFPAY | PROVIDERS: PCP Family Medicine; Visit Provider Family Medicine | DX: E11.9 Type 2 diabetes mellitus without complications (principal); I10 Essential (primary) hypertension; Z12.5 Encounter for screening for malignant neoplasm of prostate | CPT/HCPCS: 80053; 80061; 83036; 85025; G0103 ==

== ENCOUNTER → 2023-01-11 13:19 | Outpatient (BNVA) | payer MEDICAID, SELFPAY | PROVIDERS: PCP Family Medicine; Visit Provider Physician Assistant | DX: Z98.1 Arthrodesis status (principal); Z47.89 Encounter for other orthopedic aftercare | CPT/HCPCS: 72070 ==

== ENCOUNTER → 2023-07-05 12:59 | Outpatient (BNVA) | payer MEDICAID, SELFPAY | PROVIDERS: PCP Family Medicine; Visit Provider Orthopaedic Surgery | DX: Z98.1 Arthrodesis status | CPT/HCPCS: 72070 ==

== ENCOUNTER → 2023-08-15 15:08 | Outpatient (BNVA) | payer MEDICAID, SELFPAY | PROVIDERS: PCP Family Medicine; Visit Provider Family Medicine | DX: I10 Essential (primary) hypertension (principal); E11.9 Type 2 diabetes mellitus without complications | CPT/HCPCS: 80053; 80061; 83036 ==

== ENCOUNTER → 2023-08-22 16:08 | Outpatient (BNVA) | payer MEDICAID, SELFPAY | PROVIDERS: PCP Family Medicine; Visit Provider Family Medicine | DX: C44.310 Basal cell carcinoma of skin of unspecified parts of face (principal) | CPT/HCPCS: 88305 ==

== ENCOUNTER 2024-03-30 12:14 | Inpatient (IN) | payer MEDICAID, SELFPAY ==
[2024-03-30] VITALS (13 sets, daily range): BP systolic 129–172; BP diastolic 78–124; PULSE 80–98; RESP 16–22; TEMP 36.8–37.2; O2SAT 86–95; BMI 45.0
--- NOTE | 2024-03-30 13:09 | XR_ITS ---
WS: [id number] Portable AP upright chest, 03/30/2024 Clinical Data: dyspnea/cough Comparison: Portable chest, 03/25/2022 Findings: No nodules, masses or effusions are seen. The heart is enlarged. The pulmonary vascularity is not increased. No pneumonia or pneumothorax is seen. There is a posterior upper thoracic fusion. XR/XR chest 1V portable [id number] Impression: Cardiomegaly.
[2024-03-30 13:13] LABS: Basophils % 0.5 %; Eosinophils # 0.1 10^3/uL (0.0-0.8); Eosinophils % 1.3 %; Lymphocytes # 1.1 10^3/uL (0.8-4.8); Lymphocytes % 17.1 %; Mean Corpuscular HGB Conc 31.1 g/dL (30-55); Mean Corpuscular Hemoglobin 31.6 pg (27-33); Mean Corpuscular Volume 101.8 fl (82-101); Mean Platelet Volume 11.5 fL (7.4-10.4); Monocytes # 0.4 10^3/uL (0.2-0.9); Monocytes % 6.1 %; Neutrophils # 4.64 10^3/uL (1.8-7.7); Neutrophils % 74.7 %; Nucleated Red Blood Cells % 0 %; Platelet Count 170 10^3/cmm (157-399); Red Blood Count 4.52 10^6/uL (3.85-5.65); Red Cell Distribution Width 13.9 % (12.1-15.1); White Blood Count 6.21 10^3/uL (3.29-11.43)
--- NOTE | 2024-03-30 13:17 | ED_ITS ---
HPI - SOB/Dyspnea 2 General: Chief Complaint: Shortness of Breath/Dyspnea Stated Complaint: SOB Time Seen by Provider: 03/30/24 13:08 History of Present Illness: HPI Narrative: 53-year-old male presents emergency room with complaints of increasing shortness of breath the last 2 weeks. He has had an increasing productive cough along with it. He denies any fever no hemoptysis. No vomiting. Denies chest pain denies abdominal pain. He is not normally on oxygen presents emergency room with an O2 sat of 86% on room air not requiring 2 to 3 L of oxygen by nasal cannula Associated symptoms: Reports chest congestion; Deny abdominal pain, chest pain or fever(s) Related Data Home Medications ?Medication ?Instructions ?Recorded ?Confirmed amlodipine 10 mg tablet 10 mg PO DAILY 03/30/2409/14 chlorthalidone 25 mg tablet 25 mg PO DAILY 03/30/24 Previous Rx's ?Medication ?Instructions ?Recorded lisinopril 40 mg tablet 40 mg PO DAILY #90 tabs 11/14 Allergies Allergy/AdvReac Type Severity Reaction Status Date / Time No Known Allergies Allergy Verified 08/22/23 14:45 Review of Systems 2 Const: Denies: fever(s) or chills Card: Denies: chest pain Resp: Reports: dyspnea, productive cough, wheezing and chest congestion GI: Denies: abdominal pain : Denies: dysuria, urinary frequency or urinary urgency Musc: Denies: neck pain or back pain Skin/Breast: Denies: rash PFSH ED 2 PFSH: Medical History Ventilator associated pneumonia Acute renal failure YOSELIN (acute kidney injury) Encounter for postoperative care Respiratory acidosis Hypercapnic respiratory failure Acute calculous cholecystitis Flu-like symptoms Acute on chronic respiratory failure with hypoxia and hypercapnia Cholecystitis with cholelithiasis Uncontrolled hypertension Congestive heart failure Shortness of breath Acute exacerbation of chronic obstructive pulmonary disease Nicotine dependence, cigarettes, with unspecified nicotine-induced disorders Liver cirrhosis Hepatitis C Basal cell carcinoma of face Type 2 diabetes mellitus Morbidly obese Alcohol use Essential hypertension Surgical History S/P cholecystectomy S/P spinal fusion History of surgery on left wrist -Has metal plates in his left wrist Family History Father CAD (coronary artery disease) Social History Smoking and tobacco/nicotine status: current every day tobacco/nicotine user cigarettes Packs smoked per day: 1 and smokeless tobacco Alcohol intake: current Alcohol intake frequency: few times a week Alcohol type: hard liquor Substance/Drug Use: never Physical Exam 2 Const: GENERAL APPEARANCE: cooperative ORIENTATION/CONSCIOUSNESS: Yes awake, Yes oriented to person, Yes oriented to place and Yes oriented to time HENMT: COMMON NORMALS: normocephalic, atraumatic and hearing grossly normal bilaterally HEAD & SCALP: normocephalic and atraumatic Resp: AUSCULTATION: rhonchi and wheezes Cardio: COMMON NORMALS: regular rate, regular rhythm and No murmurs present (Cardio) RATE: regular rate RHYTHM: regular rhythm GI: COMMON NORMALS: Soft to palpation and No hepatosplenomegaly present A USCULTATION: Yes normoactive bowel sounds PALPATION: Yes Soft to palpation, No Tenderness to palpation present (GI), No Guarding due to palpation present (GI) and Yes No hepatosplenomegaly present Extremity: COMMON NORMALS: normal to inspection and capillary refill normal OTHER: Chronic recent stasis edema with changes to the foot thickening of the skin. No signs of acute cellulitis Neuro: SENSORIUM/ORIENTATION: Yes oriented to person, Yes oriented to place and Yes oriented to time Skin: COMMON NORMALS: no rashes or lesions noted GENERAL SKIN EXAM: no rashes or lesions noted Course 2 Vital Signs: Vital signs: Vital Signs Temperature 100.2 F H 04/05/24 00:45 Pulse Rate 107 H 04/05/24 00:45 Respiratory Rate 22 H 04/04/24 23:07 Blood Pressure 90/61 04/05/24 00:45 Pulse Oximetry 90 04/05/24 00:45 Oxygen Delivery Me thod Mechanical Ventil ation 04/04/24 23:06 Oxygen Flow Rate 100 04/04/24 15:09 Fraction of Inspir ed Oxygen 100 04/04/24 23:07 MDM - SOB/Dyspnea Medical Decision Making Patient is a fever suspect primary respiratory problem. Will admit with hypercapnia. He is stable at this time. Think there is some component of congestive heart failure contributing as well. Noticed on the CT that patient had distended gallbladder with pericholecystic edema however he is asymptomatic of this at this time is only mild elevation of his AST which is likely accountable to his alcoholic liver cirrhosis and continued alcohol use. There is also signs of pulmonary hypertension. Ultrasound of the gallbladder shows probable acute cholecystitis however patient is relatively asymptomatic at this time. Discussed with hospitalist. Will admit orders written. Medical Records I reviewed the patient's medical records. Lab Data I reviewed the patient's lab results. 04/04/24 04:14 04/05/24 01:58 Labs/Radiology: Radiology Impressions Chest CTA 03/30/24 15:05 IMPRESSION: 1. Distended gallbladder with pericholecystic edema. Possible acute cholecystitis. Gallbladder is incompletely imaged. Recommend follow-up ultrasound. 2. No pulmonary embolism. 3. Dilated main pulmonary artery. Possible pulmonary hypertension. 4. Morphologic features of the liver are suggestive of cirrhosis. Spleen is moderately enlarged. 5. Incidental findings above. Gallbladder Ultrasound 03/30/24 16:26 IMPRESSION: Probable acute cholecystitis. Gallbladder is distended, the wall is thickened, and there are multiple stones in the lumen. Renal Ultrasound 04/03/24 10:07 IMPRESSION: No acute findings. Limited exam due to the patient's body habitus and bowel gas. Chest/Abdomen/Pelvis CT 04/03/24 11:26 IMPRESSION: 1. Moderate opacification of the bilateral posterior lower lobes and to a lesser extent posterior upper lobes likely predominantly due to atelectasis or superimposed pneumonic consolidation may be considered in this clinical setting. 2. Mild cardiomegaly 3. Support hardware as detailed above 4. Suggestion of pulmonary arterial hypertension. IMPRESSION: 1. Questionable urinary bladder wall thickening in the setting of empty lumen drained by [place] catheter. Correlation for any evidence of cystitis suggested. 2. Otherwise no clear-cut acute abnormality in the abdomen or pelvis. 3. Hepatic cirrhosis with mild ascites. 4. Other chronic and degenerative findings detailed above. ADDENDUM: 04/03/24 9260 Continued sonographic follow-up of the reported stable exophytic high-density right renal lesion in 1 year suggested. C-Arm Fluoroscopy 04/04/24 13:18 IMPRESSION: Large bore right IJ catheter placed as above. Chest X-Ray 04/04/24 13:52 IMPRESSION: Right IJ large bore central venous catheter placement as above. Laboratory Results WBC 6.21 10^3/uL (3.29-11.43) 03/30/24 13:00 RBC 4.52 10^6/uL (3.85-5.65) 03/30/24 13:00 Hgb 14.30 g/dL (11.27-16.99) 03/30/24 13:00 Hct 46.0 % (37-53) 03/30/24 13:00 MCV 101.8 fl (82-101) H 03/30/24 13:00 MCH 31.6 pg (27-33) 03/30/24 13:00 MCHC 31.1 g/dL (30-55) 03/30/24 13:00 RDW 13.9 % (12.1-15.1) 03/30/24 13:00 Plt Count 170 10^3/cmm (157-399) 03/30/24 13:00 MPV 11.5 fL (7.4-10.4) H 03/30/24 13:00 Neut % (Auto) 74.7 % 03/30/24 13:00 Lymph % (Auto) 17.1 % 03/30/24 13:00 [place] % (Auto) 6.1 % 03/30/24 13:00 Eos % (Auto) 1.3 % 03/30/24 13:00 Baso % (Auto) 0.5 % 03/30/24 13:00 Neut # (Auto) 4.64 10^3/uL (1.8-7.7) 03/30/24 13:00 Lymph # (Auto) 1.1 10^3/uL (0.8-4.8) 03/30/24 13:00 [place] # (Auto) 0.4 10^3/uL (0.2-0.9) 03/30/24 13:00 Eos # (Auto) 0.1 10^3/uL (0.0-0.8) 03/30/24 13:00 Baso # (Auto) 0.0 10^3/uL (0.0-0.1) 03/30/24 13:00 Nucleated RBC % (auto) 0 % 03/30/24 13:00 Nucleated RBCs # 0.0 /100WBC 03/30/24 13:00 Specimen Type Arterial 03/30/24 13:40 Sample Site Brachial, left 03/30/24 13:40 ABG pH 7.36 (7.35-7.45) 03/30/24 13:40 ABG pCO2 60.1 mmHg (35-45) H* 03/30/24 13:40 ABG pO2 67.8 mmHg (80.0-100.0) L 03/30/24 13:40 ABG PO2/FiO2 Ratio 211 03/30/24 13:40 ABG HCO3 34.0 mmol/L (22-26) H 03/30/24 13:40 ABG O2 Saturation 92.8 03/30/24 13:40 ABG Base Excess 6.4 mmol/L (-2.0-2.0) H 03/30/24 13:40 Eriberto Test N/a 03/30/24 13:40 A-a O2 Gradient 11.5 mmHg (5-10) H 03/30/24 13:40 Hematocrit 45.5 % (42-52) 03/30/24 13:40 Hgb O2 Saturation 90.0 % (95-100) L 03/30/24 13:40 Carboxyhemoglobin 2.1 %THgb (0.4-20.1) 03/30/24 13:40 Methemoglobin 0.9 % (0.4-1.5) 03/30/24 13:40 Total Hemoglobin 14.8 g/dL (14-18) 03/30/24 13:40 Sodium 141.0 mmol/L (131-143) 03/30/24 13:40 Potassium 3.9 mmol/L (3.5-5.0) 03/30/24 13:40 Glucose 161.0 mg/dL (70-115) H 03/30/24 13:40 Ionized Calcium 1.2 mmol/L (1.1-1.4) 03/30/24 13:40 O2 Delivery Device Nc 03/30/24 13:40 O2 Liters/Min 3.0 % 03/30/24 13:40 FiO2 32.0 % 03/30/24 13:40 Corporate Trust Officer ID Gd 03/30/24 13:40 Sodium 139 mmol/L (136-145) 03/30/24 13:00 Potassium 4.2 mmol/L (3.5-5.1) 03/30/24 13:00 Chloride 99 mmol/L (98-107) 03/30/24 13:00 Carbon Dioxide 33 mmol/L (22-29) H 03/30/24 13:00 Anion Gap 11.2 (5-19) 03/30/24 13:00 BUN 11 mg/dL (6-20) 03/30/24 13:00 Creatinine 0.8 mg/dL (0.7-1.2) 03/30/24 13:00 GFR Calculation 101.9 mL/min (90-130) 03/30/24 13:00 Glucose 177 mg/dL (65-115) H 03/30/24 13:00 Estimat Average Glucose 148 03/30/24 13:00 Hemoglobin A1c 6.8 % (4.0-6.0) H 03/30/24 13:00 Calculated Osmolality 292 mOsm/kg (285-295) 03/30/24 13:00 Lactic Acid 1.0 mmol/L (0.5-2.2) 03/30/24 17:40 Calcium 8.7 mg/dL (8.5-10.5) 03/30/24 13:00 Iron 34 ug/dL (59-158) L 03/30/24 15:17 TIBC 347 mcg/dl 03/30/24 15:17 % Saturation 9.7 % (20-50) L 03/30/24 15:17 Unsat Iron Binding 313 ug/dL (112-347) 03/30/24 15:17 Total Bilirubin 0.6 mg/dL (0.15-1.2) 03/30/24 13:00 AST 34 U/L (0-40) 03/30/24 13:00 ALT 50 U/L (0-41) H 03/30/24 13:00 Alkaline Phosphatase 66 U/L (40-130) 03/30/24 13:00 Troponin T Baseline 7 ng/L (0-15) 03/30/24 13:00 Troponin T 120 Minute 6.07 ng/L (0-15) 03/30/24 15:17 Delta Troponin T -0.93 ABS# (0-10) L 03/30/24 15:17 NT-Pro-B Natriuret Pep 3945 pg/mL (0-125) H 03/30/24 13:00 Total Protein 6.7 g/dL (6.6-8.7) 03/30/24 13:00 Albumin 3.8 g/dL (3.5-5.2) 03/30/24 13:00 Globulin 2.9 g/dL (1.3-4.6) 03/30/24 13:00 Lipase 98 U/L (13-60) H 03/30/24 13:41 Vitamin B12 480 pg/mL (232-1245) 03/30/24 13:00 Procalcitonin 0.05 ng/mL (0-0.5) 03/30/24 15:17 TSH 0.16 uIU/mL (0.27-4.20) L 03/30/24 15:17 Free T4 1.28 ng/dL (0.82-1.77) 03/30/24 13:00 Free T3 2.9 PG/ML (2.0-4.4) 03/30/24 13:00 Ethyl Alcohol < 10 mg/dL (0-10) 03/30/24 15:17 Coronavirus (PCR) Negative (Negative) 03/30/24 12:44 Hepatitis A IgM Ab Non-reactive (Nonreactive) 03/30/24 13:00 Hep Bs Antigen Non-reactive (Nonreactive) 03/30/24 13:00 Hep Bs Antibody < 3.5 (11.5-1000) L 03/30/24 13:00 Hep B Core Total Ab Non-reactive (Nonreactive) 03/30/24 13:00 Hepatitis C Antibody Reactive (Nonreactive) H 03/30/24 13:00 HCV RNA (PCR) IUs/ml 6.71 Log IU/mL (NOT DETECTED) H 03/30/24 17:43 HCV RNA (PCR) IU log10 [id number] IU/mL (NOT DETECTED) H 03/30/24 17:43 Influenza A (PCR) Negative (Negative) 03/30/24 12:44 Influenza Type B (PCR) Negative (Negative) 03/30/24 12:44 RSV (PCR) Negative (Negative) 03/30/24 12:44 All radiology interpretation(s) finalized by discharge Discharge Plan Discharge Patient Disposition: Admitted As Inpatient Admit Provider: Jonny Ramirez Clinical Impression: Acute and chronic respiratory failure with hypercapnia, Acute exacerbation of chronic obstructive airways disease, Congestive heart failure (CHF), Cirrhosis of liver, Cholecystitis with cholelithiasis Condition: Stable Coding Level of Care Code ED Glass Products Inspector for Sruthi Sol
[2024-03-30] MEDS: ipratropium-albuterol 3 mL Neb INHALATION (13:30)
[2024-03-30 13:32] LABS: Alanine Aminotransferase 50 U/L (0-41); Albumin Level 3.8 g/dL (3.5-5.2); Alkaline Phosphatase 66 U/L (40-130); Anion Gap 11.2 (5-19); Aspartate Amino Transferase 34 U/L (0-40); Blood Urea Nitrogen 11 mg/dL (6-20); Calcium 8.7 mg/dL (8.5-10.5); Carbon Dioxide 33 mmol/L (22-29); Chloride 99 mmol/L (98-107); Creatinine Clr Calc Pharmacy 184.1985; Globulin 2.9 g/dL (1.3-4.6); Glomerular Filtration Rate 101.9 mL/min (90-130); Glucose 177 mg/dL (65-115); Osmolality Calculated 292 mOsm/kg (285-295); Potassium 4.2 mmol/L (3.5-5.1); Sodium 139 mmol/L (136-145); Total Bilirubin 0.6 mg/dL (0.15-1.2); Total Protein 6.7 g/dL (6.6-8.7)
[2024-03-30] MEDS: dexamethasone 10 mg/mL INJ IM (13:38)
--- NOTE | 2024-03-30 13:52 | ECG_ITS ---
[facility] Test Date: 2024-03-30 Pat Name: Boris Lauren Department: Room: Gender: Male Solutions Delivery Consultant: : 1970 Requested By: Dariusz Paulino Order Number: [id number] Reading MD: RASHEED ANTON Measurements Intervals [place] Rate: 92 P: 21 AR: 154 QRS: -30 QRSD: 97 T: 115 QT: 387 QTc: 480 Interpretive Statements SINUS RHYTHM BORDERLINE LEFT AXIS DEVIATION [QRS AXIS < -20] LEFT VENTRICULAR HYPERTROPHY AND ST-T CHANGE [VOLTAGE CRITERIA PLUS ST/T ABNORMALITY] Compared to ECG 03/25/2022 13:45:18 Ventricular premature complex(es) no longer present ST (T wave) deviation still present Electronically Signed On 04-01-2024 21:04:34 HEAD GREASE MAKER by RASHEED ANTON [email or web address]
[2024-03-30 13:55] LABS: ABG PH Result 7.36 (7.35-7.45); Alveolar-Arterial Oxygen Gradi 11.5 mmHg (5-10); Arterial Blood Gas Hematocrit 45.5 % (42-52); Base Excess ABG 6.4 mmol/L (-2.0-2.0); Blood Gas Operator Identificat GD; Blood Gas Sample Site Brachial, left; Blood Gas Sample Type Arterial; Carboxyhemoglobin 2.1 %THgb (0.4-20.1); Ionized Calcium Level - ABG 1.2 mmol/L (1.1-1.4); Methemoglobin 0.9 % (0.4-1.5); Oxygen Device NC; Oxygen Saturation ABG 92.8; PO2 ABG 67.8 mmHg (80.0-100.0); PO2 FiO2 Ratio Arterial Blood 211; Potassium Level - ABG 3.9 mmol/L (3.5-5.0); Total Hemoglobin 14.8 g/dL (14-18)
[2024-03-30 13:56] LABS: ABG PCO2 60.1 mmHg (35-45)
[2024-03-30 14:25] LABS: NT Pro B Type Natriuretic Pept 3945 pg/mL (0-125); Procalcitonin 0.05 ng/mL (0-0.5)
[2024-03-30 14:41] LABS: Influenza A NEGATIVE (Negative); Influenza B NEGATIVE (Negative); Respiratory Syncytial Virus Ce NEGATIVE (Negative); SARS-CoV-2 PCR NEGATIVE (Negative)
--- NOTE | 2024-03-30 15:05 | CTR_ITS ---
PROCEDURE INFORMATION: Exam: CTA Chest With Contrast Exam date and time: 03/30/2024 3:36 PM Age: 53 years old Clinical indication: Dyspnea and hyperventilation; Additional info: Dyspnea, hypoxia TECHNIQUE: Imaging protocol: Computed tomographic angiography of the chest with contrast. Exam focused on the arteries. 3D rendering (Not supervised by radiologist): MIP and/or 3D reconstructed images were created by the technologist. Radiation optimization: All CT scans at this facility use at least one of these dose optimization techniques: automated exposure control; mA and/or kV adjustment per patient size (includes targeted exams where dose is matched to clinical indication); or iterative reconstruction. Contrast material: OMNIPAQUE 350; Contrast volume: 100 ml; Contrast route: INTRAVENOUS (IV); COMPARISON: CR XR thoracic spine 2V [id number] 01/11/2023 1:20 PM RADIATION DOSE METRICS: Total DLP (mGy-cm): 599.2 FINDINGS: Pulmonary arteries: Main pulmonary artery is dilated measuring 4.6 cm diameter. The pulmonary arteries are adequately opacified for evaluation to the subsegmental level. There is no filling defect to suggest embolism. Aorta: The aorta is unremarkable. There is no aneurysm. Lungs: Dependent opacity in the lower lungs bilaterally most likely represents atelectasis. Pleural spaces: There is no pleural effusion or pneumothorax. Heart: There is mild cardiac enlargement. There is no pericardial effusion. Lymph nodes: There is no mediastinal or hilar lymphadenopathy. Liver: The liver has a nodular surface and there is relative hypertrophy of the left and caudate lobe consistent with cirrhosis. Gallbladder and biliary ducts: The distended gallbladder is partially imaged. There is pericholecystic edema. Spleen: The spleen is moderately enlarged. 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 Bones/joints: There are multiple healed left anterolateral rib fractures. there is beam hardening artifact from posterolateral fusion hardware from T1 through T6, bridging a severe compression fracture at T4. No acute osseous findings. Soft tissues: The extrathoracic soft tissues are unremarkable. CT/CT angio chest PE protcl [id number] IMPRESSION: 1. Distended gallbladder with pericholecystic edema. Possible acute cholecystitis. Gallbladder is incompletely imaged. Recommend follow-up ultrasound. 2. No pulmonary embolism. 3. Dilated main pulmonary artery. Possible pulmonary hypertension. 4. Morphologic features of the liver are suggestive of cirrhosis. Spleen is moderately enlarged. 5. Incidental findings above.
--- NOTE | 2024-03-30 15:06 | ECG_ITS ---
[facility] Test Date: 2024-03-30 Pat Name: Boris Lauren Department: Room: Gender: Male Organizational Effectiveness Director: : 1970 Requested By: Dariusz Paulino Order Number: [id number] Reading MD: RASHEED ANTON Measurements Intervals [place] Rate: 89 P: 36 IN: 156 QRS: -32 QRSD: 98 T: 106 QT: 389 QTc: 475 Interpretive Statements SINUS RHYTHM LEFT AXIS DEVIATION [QRS AXIS < -30] MODERATE VOLTAGE CRITERIA FOR LVH, CONSIDER NORMAL VARIANT [MEETS CRITERIA IN ONE OF: R(aVL), S(V1), R(V5), R(V5/V6)+S(V1)] NONSPECIFIC T-WAVE ABNORMALITY Compared to ECG 03/30/2024 13:52:32 T-wave abnormality now present ST (T wave) deviation no longer present Electronically Signed On 04-01-2024 21:04:17 TOLL BRIDGE ATTENDANT by RASHEED ANTON [email or web address]
[2024-03-30 15:33] LABS: Troponin(5th) Baseline 7 ng/L (0-15)
[2024-03-30] MEDS: iohexol 350 mg/mL 500 mL Btl (per mL) IV (15:38)
[2024-03-30 15:45] LABS: Troponin 5 2HR 6.07 ng/L (0-15)
[2024-03-30 15:47] LABS: Troponin 5 2HR Delta -0.93 ABS# (0-10)
--- NOTE | 2024-03-30 16:26 | USR_ITS ---
PROCEDURE INFORMATION: Exam: US Abdomen, Limited; Right Upper Quadrant Exam date and time: 03/30/2024 5:21 PM Age: 53 years old Clinical indication: Abnormal findings; Abnormal radiologic finding of the abdomen; Radiologic exam and body structure: Ct-gb; Additional info: Abnormal CT of gallbladder TECHNIQUE: Imaging protocol: Real time ultrasound of the abdomen with image documentation. Limited exam focused on the right upper quadrant. COMPARISON: CT angio chest PE protcl [id number] 03/30/2024 3:36 PM FINDINGS: Liver: No focal liver abnormality. There is diffuse mild increased echogenicity of the liver parenchyma which may represent fat infiltration. Gallbladder: The gallbladder lumen is distended. The wall is diffusely thickened. There are multiple shadowing stones in the lumen. No pericholecystic fluid is seen. Information regarding sonographic Beard sign was not provided. Biliary ducts: The common bile duct is nondilated measuring 4 mm. Pancreas: The pancreas is largely obscured by overlying bowel gas. Right kidney: The right kidney is unremarkable. Cortical thickness and echotexture is normal. There is no hydronephrosis. No visible stones. Aorta: The upper abdominal aorta is unremarkable. Inferior vena cava: The upper IVC is unremarkable. Portal venous: The main portal vein demonstrates hepatopetal flow. US/US gall bladder [id number] IMPRESSION: Probable acute cholecystitis. Gallbladder is distended, the wall is thickened, and there are multiple stones in the lumen.
[2024-03-30] MEDS: FUROsemide 10 mg/mL SDV 4mL 40 MG IVP ×2 (16:42→18:15)
--- NOTE | 2024-03-30 17:06 | ECG_ITS ---
[facility] Date: 2024-[facility]30 Pat Name: Boris Lauren Department: Room: 279 Gender: Male Records Assistant: : 1970 Requested By: Dariusz Paulino Order Number: [id number] Reading MD: RASHEED ANTON Measurements Intervals [place] Rate: 92 P: 26 NC: 155 QRS: -43 QRSD: 100 T: 108 QT: 385 QTc: 476 Interpretive Statements SINUS RHYTHM LEFT AXIS DEVIATION [QRS AXIS < -30] LEFT VENTRICULAR HYPERTROPHY AND ST-T CHANGE [VOLTAGE CRITERIA PLUS ST/T ABNORMALITY] Compared to ECG 03/30/2024 16:00:49 ST (T wave) deviation now present T-wave abnormality no longer present Electronically Signed On 04-01-2024 21:10:43 PLANT WORKER by RASHEED ANTON [id number]
[2024-03-30 17:35] LABS: Procalcitonin 0.05 ng/mL (0-0.5); Thyroid Stimulating Hormone 0.16 uIU/mL (0.27-4.20)
[2024-03-30 17:42] LABS: Hepatitis A Antibody IgM Non-Reactive (Nonreactive); Hepatitis B Surface AB < 3.5 (11.5-1000); Hepatitis B Surface Antigen Non-Reactive (Nonreactive)
[2024-03-30 17:45] LABS: Iron 34 ug/dL (59-158); Percent Saturation 9.7 % (20-50); Total Iron Binding Capacity 347 mcg/dl; Unsaturated Iron Binding 313 ug/dL (112-347)
[2024-03-30 17:46] LABS: Hepatitis B Core AB, Total Non-Reactive (Nonreactive)
[2024-03-30 17:46] LABS: Alcohol Level < 10 mg/dL (0-10)
--- NOTE | 2024-03-30 17:54 | P.HP_ITS ---
Providers/Chief Complaint 2 Primary Care Provider: Rafael Jacobson DO Chief Complaint: SOB History of Present Illness Boris Lauren is a 53 year old male with past medical history of hypertension, chronic alcohol use with 4 shots of whiskey every night, post spinal fusion surgery, COPD presents to the ER today because of difficulty in breathing which has been getting worse over last 1 week. Patient states a week ago he had flulike symptoms after which she started having difficulty breathing and myalgias. Shortness of breath has been getting worse and currently he gets short of breath on minimal exertion. He is not able to lie down flat as he feels he is not able to breathe for a long time. Denies any nausea, vomiting, headache, chest pain, dizziness, palpitations. Checks his blood pressures at home and usually run at 170/100 mmHg. Takes medications regularly. Denies any history of alcohol withdrawal or seizures. Review of Systems 2 General: Reports: 10 or more systems reviewed and unremarkable except in HPI and below Const: Denies: fever(s), chills, body aches, change in appetite, change in weight, malaise, night sweats, diaphoresis, change in sleep pattern, daytime sleepiness or snoring Eyes: Denies: change in vision, blurry vision, photophobia, eye discomfort or eye discharge ENMT: Denies: throat pain, enlarged tonsils, hoarseness, mouth pain, oral sores, dry mouth, tinnitus, nasal congestion or post nasal drip Card: Denies: chest pain, palpitations, irregular heart rhythm, edema, swelling of feet/ankles, lightheadedness, syncope, pre-syncope, dyspnea on exertion, orthopnea, leg pain with exertion or acrocyanosis Resp: Denies: dyspnea, productive cough, non-productive cough, wheezing, stridor, pain on inspiration, change in phlegm color, hemoptysis or chest congestion GI: Denies: abdominal pain, nausea, vomiting, hematemesis, coffee ground emesis, dysphagia, heartburn, diarrhea, constipation, bloating, GI cramping, change in bowel habits, pain on defecation, hematochezia or melena : Denies: flank pain, difficulty urinating, dysuria, urinary frequency, urinary urgency, urinary hesitancy, urinary dribbling, difficulty starting urination, change in urine stream, nocturia or hematuria Musc: Denies: neck pain, back pain, extremity pain, joint pain, joint swelling, joint redness, joint stiffness or limited range of motion Neuro: Denies: headache(s), numbness in extremities, weakness in extremities, sensory changes, lack of coordination, difficulty walking, frequent falls, dizziness, vertigo, confusion, Slurred speech present, difficulty communicating thoughts or seizure-like activity Psych: Denies: anxiety, depression, mood swings, panic attacks, hopelessness or irritability Endo: Denies: polyuria, polydipsia, tired all the time, cold intolerance, excessive sweating, flushing or heat intolerance Jose/Lymph: Denies: easy bruising or easy bleeding All/Imm: Denies: tongue swelling, facial swelling or acute wheezing Medications/Allergies Home Medications ?Medication ?Instructions ?Recorded ?Confirmed ?Last Taken ?Type lisinopril 40 mg tablet 40 mg PO DAILY #90 tabs 11/1403/30/24 03/30/24 Rx amlodipine 10 mg tablet 10 mg PO DAILY 03/30/2409/1403/30/24 History chlorthalidone 25 mg tablet 25 mg PO DAILY 03/30/2403/30/24 History Allergies Allergy/AdvReac Type Severity Reaction Status Date / Time No Known Allergies Allergy Verified 08/22/23 14:45 PFSH Acute 2 PFSH: Medical History (Updated 03/30/24 @ 17:58 by Jonny Ramirez MD) Basal cell carcinoma of face Type 2 diabetes mellitus Morbidly obese Alcohol use Essential hypertension Surgical History History of surgery on left wrist -Has metal plates in his left wrist Family History Father CAD (coronary artery disease) Social History Smoking and tobacco/nicotine status: current every day tobacco/nicotine user cigarettes Packs smoked per day: 1 and smokeless tobacco Alcohol intake: current Alcohol intake frequency: few times a week Alcohol type: hard liquor Substance/Drug Use: never Vitals/I&O/Wt Last Vital Signs Temp 98.3 F 03/30/24 12:44 Pulse 87 02/07/25 16:46 Resp 18 03/30/24 17:17 BP 153/110 03/30/24 17:36 Pulse Ox 94 03/30/24 17:17 O2 Del Method Nasal Cannula 03/30/24 13:30 O2 Flow Rate 3 03/30/24 13:30 Weight last 48 hrs Weight 167.829 kg Physical Exam 2 Narrative: General: No acute distress, AO x3, unkept, morbidly obese HEENT: PERRLA, pupils bilaterally equal and reactive Chest: Normal vesicular breath sounds, bilateral decreased air entry all over lung kiran, fine crackles present bilaterally lower zone up to mid lungs equal good air entry bilaterally CVS: S1-S2 regular, no murmurs, no tachycardia, no gallops, no rubs Abdomen: Soft, nontender, no organomegaly, bowel sounds present Neuro: No focal deficits, no facial deformity, AO x3, power 5/5 in all limbs Data 03/30/24 13:00 03/30/24 13:00 A&P Assessment and plan (1) Shortness of breath: Most likely in setting of congestive heart failure due to uncontrolled hypertension. Cannot rule out COPD exacerbation due to viral prodrome. Oxygen supplementation keeping saturation over 90%. Appreciate CT results. Check sputum culture, MRSA swab, respiratory viral panel. Incentive spirometry. (2) Congestive heart failure: Check echocardiogram. Strict input output charting. Fluid restriction to less than 1500 cc. IV Lasix 40 mg twice daily. Depending on echocardiogram results will plan for further workup. (3) Flu-like symptoms: Supportive treatment. Check viral panel. (4) Acute on chronic respiratory failure with hypoxia and hypercapnia: ABG showing hypercapnia and hypoxia. pH normal. Solu-Medrol 40 mg every 8 hourly. Will plan for de-escalating aggressively. Ipratropium, Xopenex every 6 hour, Pulmicort twice daily. (5) Uncontrolled hypertension: Goal blood pressure less than 140/90 mmHg. Continue with home dose of amlodipine and lisinopril. Will uptitrate as for goal blood pressure. (6) Alcohol use: Chronic. Daily 4 shots of whiskey use. WA protocol. (7) Cholecystitis with cholelithiasis: Denies any abdominal pain. Mild AST elevation. Does have mild tenderness on deep palpation in right upper quadrant Check liver ultrasound. If concerning for gallbladder stones will plan for MRCP. No leukocytosis. Empirically start patient on IV ceftriaxone 1 g daily. (8) Liver cirrhosis: Chronic alcohol use. Check hepatitis panel, HIV. (9) Type 2 diabetes mellitus: Check A1c. Not on any antidiabetic medications. Will continue to monitor. Qualifiers: Diabetes mellitus technician terminal and repeater insulin use: without technician terminal and repeater use Diabetes mellitus complication status: without complication Qualified Code(s): E11.9 - Type 2 diabetes mellitus without complications (10) Morbidly obese: (11) Nicotine dependence, cigarettes, with unspecified nicotine-induced disorders: Nicotine patch. Counseled against smoking. Plan Full code Cardiac diet. Fluid restriction to less than 1500 cc Heparin 5000 Q12 hourly. Protonix OPD prophylaxis PDMP PDMP Reviewed: Not Reviewed Attestations 2 Medical Necessity Statement*: Admission for more than 2 midnights for management shortness of breath in setting of congestive heart failure, flulike symptoms leading to COPD exacerbation, uncontrolled hypertension Diagnoses Shortness of breath R06.02 Congestive heart failure I50.9 Flu-like symptoms R68.89 Acute on chronic respiratory failure with hypoxia and hypercapnia J96.21; J96.22 Uncontrolled hypertension I10 Alcohol use F10.90 Cholecystitis with cholelithiasis K80.10 Liver cirrhosis K74.60 Type 2 diabetes mellitus without complication, without long-term current use of insulin E11.9 Diabetes mellitus technician terminal and repeater insulin use: without technician terminal and repeater use Diabetes mellitus complication status: without complication Morbidly obese E66.01 Nicotine dependence, cigarettes, with unspecified nicotine-induced disorders F17.219
--- NOTE | 2024-03-30 17:57 | PC.NURSE ---
Dr. Yuan verbalized it was okay that the pt refused the rivera catheter and the doctor asked me to put in 40 mg of IVP lasix.
[2024-03-30 18:35] LABS: Lipase 98 U/L (13-60)
--- NOTE | 2024-03-30 19:43 | PC.NURSE ---
1400 of urine out at 1920.
[2024-03-30 20:58] LABS: Vitamin B12 480 pg/mL (232-1245)
[2024-03-30] MEDS: pantoprazole 40 mg SDV IVP (21:11)
[2024-03-30] MEDS: heparin 5,000 unit/mL INJ 1 mL 5000 UNIT SUBCUT (21:11)
[2024-03-30] MEDS: docusate sodium 100 mg Capsule PO (21:11)
[2024-03-30] MEDS: cefTRIAXone 1,000 mg SDV 1000 MG IVP (21:11)
[2024-03-30] MEDS: nicotine 14 mg Patch 1 PATCH TRANSDERMA (21:12)
[2024-03-30] MEDS: methylPREDNISolone sod succ 40 mg/mL INJ IVP (21:12)
[2024-03-30] MEDS: thiamine 100 mg/mL 2mL SDV IM (21:12)
[2024-03-30 21:29] LABS: Estmated Average Glucose 148; Hemoglobin A1C 6.8 % (4.0-6.0)
[2024-03-30 21:32] LABS: Free T4 Free Thyroxine 1.28 ng/dL (0.82-1.77); T3 Free 2.9 PG/ML (2.0-4.4)
[2024-03-30 22:07] LABS: MRSA PCR OZH (swab) MRSA Detected (Negative)
[2024-03-31] VITALS (12 sets, daily range): BP systolic 113–186; BP diastolic 67–106; PULSE 77–99; RESP 17–20; TEMP 36.3–37.2; O2SAT 90–94
[2024-03-31 01:15] LABS: Hepatitis C Virus Antibody Reactive (Nonreactive)
[2024-03-31] MEDS: morphine 4 mg/mL SDV 1 mL 2 MG IVP ×2 (03:26→07:44)
[2024-03-31] MEDS: methylPREDNISolone sod succ 40 mg/mL INJ IVP ×3 (03:27→20:13)
[2024-03-31] MEDS: FUROsemide 10 mg/mL SDV 4mL 40 MG IVP ×3 (05:16→18:33)
[2024-03-31 05:53] LABS: Basophils % 0.1 %; Hematocrit 49.5 % (37-53); Lymphocytes # 0.6 10^3/uL (0.8-4.8); Lymphocytes % 8.2 %; Mean Corpuscular HGB Conc 30.9 g/dL (30-55); Mean Corpuscular Hemoglobin 31.4 pg (27-33); Mean Corpuscular Volume 101.4 fl (82-101); Mean Platelet Volume 11.2 fL (7.4-10.4); Monocytes # 0.2 10^3/uL (0.2-0.9); Monocytes % 2.3 %; Neutrophils # 6.09 10^3/uL (1.8-7.7); Nucleated Red Blood Cells % 0 %; Platelet Count 170 10^3/cmm (157-399); Red Blood Count 4.88 10^6/uL (3.85-5.65); Red Cell Distribution Width 13.5 % (12.1-15.1); White Blood Count 6.85 10^3/uL (3.29-11.43)
[2024-03-31 06:13] LABS: Alanine Aminotransferase 47 U/L (0-41); Alkaline Phosphatase 70 U/L (40-130); Anion Gap 12.7 (5-19); Aspartate Amino Transferase 27 U/L (0-40); Blood Urea Nitrogen 11 mg/dL (6-20); Calcium 8.9 mg/dL (8.5-10.5); Carbon Dioxide 35 mmol/L (22-29); Chloride 97 mmol/L (98-107); Creatinine Clr Calc Pharmacy 184.1985; Globulin 3.5 g/dL (1.3-4.6); Glomerular Filtration Rate 101.9 mL/min (90-130); Glucose 181 mg/dL (65-115); Osmolality Calculated 294 mOsm/kg (285-295); Phosphorus 3.4 mg/dL (2.5-4.5); Potassium 4.7 mmol/L (3.5-5.1); Sodium 140 mmol/L (136-145); Total Bilirubin 0.5 mg/dL (0.15-1.2); Total Protein 7.5 g/dL (6.6-8.7)
[2024-03-31] MEDS: budesonide 0.5 mg/2 mL Neb INHALATION (08:00)
[2024-03-31] MEDS: levalbuterol 0.63 mg/3 mL Neb INHALATION ×2 (08:00→14:05)
[2024-03-31] MEDS: ipratropium 0.5 mg/2.5 mL Neb INHALATION ×2 (08:00→14:05)
[2024-03-31 08:27] LABS: Chol HDL Ratio 3.15 mg/dL (1.0-5.00); Cholesterol 129 mg/dL (0-200); HDL Cholesterol 41 mg/dL (60-100); LDL Cholesterol Calculated 78 mg/dL (50-129); Triglycerides 51 mg/dL (0-150)
[2024-03-31 08:32] LABS: Procalcitonin 0.04 ng/mL (0-0.5)
[2024-03-31] MEDS: folic acid 1 mg Tablet PO (09:48)
[2024-03-31] MEDS: heparin 5,000 unit/mL INJ 1 mL 5000 UNIT SUBCUT ×2 (09:48→20:13)
[2024-03-31] MEDS: lisinopril 20 mg Tablet 40 MG PO (09:48)
[2024-03-31] MEDS: thiamine 100 mg Tablet PO (09:48)
[2024-03-31] MEDS: docusate sodium 100 mg Capsule PO ×2 (09:48→18:33)
[2024-03-31] MEDS: amlodipine 10 mg Tablet PO (09:48)
[2024-03-31] MEDS: multivitamin therapeutic Tablet 1 TAB PO (09:48)
[2024-03-31] MEDS: haloperidol inj 5 mg/mL INJ 1 mL IVP (14:14)
--- NOTE | 2024-03-31 15:31 | P.PN_ITS ---
Subjective 2 Subjective: No acute events overnight. Blood pressure better controlled. States feeling better. Denies any nausea, vomiting, headache. Down to 3 L of oxygen supplementation saturating more than 90%. Vitals/I&O/Wt Last Vital Signs Temp 98.9 F 03/31/24 07:48 Pulse 84 03/31/24 14:05 Resp 18 03/31/24 14:05 BP 150/93 03/31/24 11:51 Pulse Ox 91 03/31/24 14:05 O2 Del Method Nasal Cannula 03/31/24 14:05 O2 Flow Rate 3 03/31/24 14:05 03/31/24 03/31/24 03/31/24 06:59 14:59 22:59 Intake Total 120 / 120 480 / 480 Output Total 1999 / 1999 Balance 120 / -480 -1520 / -1520 Weight last 48 hrs Weight 167.829 kg Weight 167.829 kg Weight 167.829 kg Physical Exam 2 Narrative: General: No acute distress, AO x3, morbidly obese HEENT: PERRLA, pupils bilaterally equal and reactive Chest: Normal vesicular breath sounds, bilateral decreased air entry all over lung kiran, fine crackles present bilaterally lower zone up to mid lungs equal good air entry bilaterally CVS: S1-S2 regular, no murmurs, no tachycardia, no gallops, no rubs Abdomen: Soft, nontender, no organomegaly, bowel sounds present Neuro: No focal deficits, no facial deformity, AO x3, power 5/5 in all limbs Data 03/31/24 05:32 03/31/24 05:32 Micro: Microbiology 03/30/24 23:47 Blood Culture - Preliminary Blood SPECIMEN COLLECTED 03/30/24 23:40 Blood Culture - Preliminary Blood SPECIMEN COLLECTED A&P Assessment and plan (1) Shortness of breath: Most likely in setting of congestive heart failure due to uncontrolled hypertension. Cannot rule out COPD exacerbation due to viral prodrome. Oxygen supplementation keeping saturation over 90%. Appreciate CT results. No concerns for consolidation on CT. Concerning for pulmonary hypertension and mild congestive heart failure. MRSA positive. Sputum culture and respiratory viral panel pending. Incentive spirometry. (2) Congestive heart failure: Echocardiogram pending Strict input output charting. Fluid restriction to less than 1500 cc. IV Lasix 40 mg twice daily. Extra dose of 40 mg of Lasix today. Depending on echocardiogram results will plan for further workup. (3) Flu-like symptoms: Supportive treatment. Check viral panel. (4) Acute on chronic respiratory failure with hypoxia and hypercapnia: ABG showing hypercapnia and hypoxia. pH normal. High concern for baseline COPD versus obstructive sleep apnea. Patient would benefit from outpatient sleep study. Wean Solu-Medrol 40 mg every 12 hourly. Ipratropium, Xopenex every 6 hour, Pulmicort twice daily. (5) Uncontrolled hypertension: Goal blood pressure less than 140/90 mmHg. Continue with home dose of amlodipine and lisinopril. Will uptitrate as for goal blood pressure. (6) Alcohol use: Chronic. Daily 4 shots of whiskey use. CIWA protocol. (7) Cholecystitis with cholelithiasis: Denies any abdominal pain. Mild AST elevation. Does have mild tenderness on deep palpation in right upper quadrant Liver ultrasound consistent with acute cholecystitis with cholelithiasis. No leukocytosis. Continue with IV ceftriaxone. Patient could not tolerate MRCP. Will consult surgery for further recommendations. (8) Liver cirrhosis: Chronic alcohol use. Hepatitis C positive. Check HIV. Follow-up hepatitis C viral load. (9) Type 2 diabetes mellitus: A1c of 6.8. Not on any antidiabetic medications. Insulin sliding scale low-dose protocol. Start on metformin 1000 mg twice daily. Patient will benefit from outpatient oral hypoglycemics. Qualifiers: Diabetes mellitus oracle brm developer insulin use: without custodial use Diabetes mellitus complication status: without complication Qualified Code(s): E11.9 - Type 2 diabetes mellitus without complications (10) Morbidly obese: (11) Nicotine dependence, cigarettes, with unspecified nicotine-induced disorders: Nicotine patch. Counseled against smoking. (12) Hepatitis C: Plan Full code Cardiac diet. Fluid restriction to less than 1500 cc Heparin 5000 Q12 hourly. Protonix OPD prophylaxis PDMP PDMP Reviewed: Not Reviewed Attestations 2 Medical Necessity Statement*: Requires further hospitalization for management of acute hypoxic respiratory failure with concerns for congestive heart failure, undiagnosed obstructive sleep apnea, cholecystitis Diagnoses Shortness of breath R06.02 Congestive heart failure I50.9 Flu-like symptoms R68.89 Acute on chronic respiratory failure with hypoxia and hypercapnia J96.21; J96.22 Uncontrolled hypertension I10 Alcohol use F10.90 Cholecystitis with cholelithiasis K80.10 Liver cirrhosis K74.60 Type 2 diabetes mellitus without complication, without long-term current use of insulin E11.9 Diabetes mellitus custodial insulin use: without oracle brm developer use Diabetes mellitus complication status: without complication Morbidly obese E66.01 Nicotine dependence, cigarettes, with unspecified nicotine-induced disorders F17.219 Hepatitis C B19.20
[2024-03-31 16:14] LABS: HIV 1 & 2 Antibody Non-Reactive (Non-Reactiv); HIV 1 & 2 Antigen Non-Reactive (Non-Reactiv)
[2024-03-31 16:38] LABS: Glucose Point of Care 135 mg/dL (70-110)
[2024-03-31 16:57] LABS: Amphetamines Screen Urine Positive (Negative); Barbiturates Screen Urine Negative (Negative); Benzodiazepines Screen Urine Negative (Negative); Cocaine Screen Urine Negative (Negative); Opiate Screen Urine Positive (Negative); PCP Screen Urine Negative (Negative); THC Screen Urine Negative (Negative)
--- NOTE | 2024-03-31 16:59 | USCV_ITS ---
Boris Lauren Age: 53 Gender: M : 1970 Exam Date: 03/31/2024 17:10 Ordering Phys: Jonny Ramirez MD Technologist: Anshul Jones Exam Location: [facility] [place] Indication: CHF BP: 113 / 67 HR: 76 Rhythm: Sinus Technical Quality: suboptimal MEASUREMENTS (Male / Female) Normal Values 2D ECHO LV Diastolic Diameter PLAX 5.6 cm 4.2 - 5.9 / 3.9 - 5.3 cm IVS Diastolic Thickness 1.4 cm 0.6 - 1.0 / 0.6 - 0.9 cm IVS Systolic Thickness 1.6 cm LVPW Diastolic Thickness 1.7 cm 0.6 - 1.0 / 0.6 - 0.9 cm LVPW Systolic Thickness 1.9 cm LVOT Diameter 2.5 cm LV Ejection Fraction 2D Teich 56.7 % LV Ejection Fraction MOD 4C 51.4 % LV Ejection Fraction MOD 2C 46.9 % LV Ejection Fraction 2C AL 47.9 % LA Diameter 3.9 cm RA Systolic Volume 4C AL 116.0 ml RA Systolic Volume 4C MOD 115.2 ml LA Sys Volume AL 108.0 cm cubed LA Sys Volume Index AL 35.2 cm cubed/m squared Aorta at Sinotubular Diameter 2.7 cm M-MODE LA Ao Ratio MM 1.4 AV Cusp Separation MM 1.9 cm DOPPLER AV Peak Velocity 204.0 cm/s LVOT Peak Velocity 99.0 cm/s AV Area Cont Eq vti 2.2 cm squared AV Area Cont Eq pk 2.4 cm squared MV Peak Velocity 107.0 cm/s MV Area PHT 6.8 cm squared Mitral E to A Ratio 1.0 TV Peak Velocity 173.7 cm/s TR Peak Velocity 183.0 cm/s TR Peak Gradient 13.4 mmHg TR Mean Velocity 123.0 cm/s TR Mean Gradient 7.6 mmHg TR Velocity Time Integral 34.5 cm PV Peak Velocity 107.0 cm/s RV Ejection Time 0.2 s FINDINGS Left Ventricle Mildly increased left ventricular cavity size. Global left ventricular hypokinesis. Mildly decreased left ventricular systolic function. Left ventricular ejection fraction is estimated at 50 %. Grade II/IV diastolic dysfunction, moderately elevated filling pressures. Right Ventricle The right ventricle is normal in size and function. Right Atrium The right atrium is normal in size. Left Atrium The left atrium is normal in size. Mitral Valve Structurally normal mitral valve without significant stenosis or prolapse. There is no mitral regurgitation. Aortic Valve Moderate aortic valve calcification. No aortic valve stenosis. Trace aortic valve regurgitation. Tricuspid Valve Structurally normal tricuspid valve without significant stenosis or regurgitation. Pulmonary artery systolic pressure is normal. Pulmonic Valve Trace pulmonary valve regurgitation. Pericardium Normal pericardium without effusion. Aorta Normal ascending aorta dimension. IVC The inferior vena cava appears normal. CONCLUSIONS Mildly increased left ventricular cavity size. Global left ventricular hypokinesis. Mildly decreased left ventricular systolic function. Left ventricular ejection fraction is estimated at 50 %. Grade II/IV diastolic dysfunction, moderately elevated filling pressures. Moderate aortic valve calcification. No aortic valve stenosis. Trace aortic valve regurgitation. There is no pericardial effusion. Nelida Brock MD (Electronically Signed) Final Date: 31 March 2024 18:30 S
[2024-03-31 17:28] LABS: Bilirubin Urine Negative (Negative); Blood Urine Negative (Negative); Glucose Urine UA Negative (Normal); Ketones Urine Negative (Negative); Leukocyte Esterase Urine Negative (Negative); Nitrate Urine Negative (Negative); Protein Urine Negative (Negative); Urine Appearance Clear (CLEAR); Urine Color Yellow (Yellow); pH Urine 5.5 (5-7)
[2024-03-31 17:32] LABS: Add Urine Microscopic? YES; Bacteria Urine None Seen /hpf; Hyaline Casts Urine 0.81 /lpf; RBC Urine 0-2 /hpf (0-2); Squamous Epithelial Cell Urine 0-5 /hpf (0-5); WBC Urine 0-5 /hpf (0-5)
[2024-03-31] MEDS: perflutren protein-a microsphr 0.22 mg/mL SDV 3 mL IV (17:56)
[2024-03-31] MEDS: acetaminophen 325 mg Tablet 650 MG PO (18:33)
[2024-03-31] MEDS: pantoprazole 40 mg SDV IVP (20:13)
[2024-03-31] MEDS: cefTRIAXone 1,000 mg SDV 1000 MG IVP (20:13)
[2024-03-31 21:42] LABS: Glucose Point of Care 150 mg/dL (70-110)
[2024-03-31] MEDS: insulin lispro 100 unit/1 mL SUBCUT (22:14)
[2024-04-01] VITALS (39 sets, daily range): BP systolic 79–145; BP diastolic 48–88; PULSE 72–98; RESP 15–26; TEMP 36.3–37.5; O2SAT 70–97; BMI 45.0
[2024-04-01 05:29] LABS: Basophils % 0.1 %; Hematocrit 51.6 % (37-53); Lymphocytes # 0.9 10^3/uL (0.8-4.8); Mean Corpuscular HGB Conc 30.2 g/dL (30-55); Mean Corpuscular Hemoglobin 30.9 pg (27-33); Mean Corpuscular Volume 102.2 fl (82-101); Mean Platelet Volume 11.6 fL (7.4-10.4); Monocytes # 0.8 10^3/uL (0.2-0.9); Neutrophils % 88.6 %; Nucleated Red Blood Cells % 0 %; Platelet Count 240 10^3/cmm (157-399); Red Blood Count 5.05 10^6/uL (3.85-5.65); Red Cell Distribution Width 13.6 % (12.1-15.1); White Blood Count 15.01 10^3/uL (3.29-11.43)
[2024-04-01 05:48] LABS: Alanine Aminotransferase 47 U/L (0-41); Albumin Level 4.1 g/dL (3.5-5.2); Alkaline Phosphatase 66 U/L (40-130); Anion Gap 10.2 (5-19); Aspartate Amino Transferase 31 U/L (0-40); Blood Urea Nitrogen 17 mg/dL (6-20); Calcium 9.2 mg/dL (8.5-10.5); Carbon Dioxide 38 mmol/L (22-29); Chloride 96 mmol/L (98-107); Creatinine Clr Calc Pharmacy 210.5125; Globulin 3.2 g/dL (1.3-4.6); Glomerular Filtration Rate 118.9 mL/min (90-130); Glucose 146 mg/dL (65-115); Osmolality Calculated 294 mOsm/kg (285-295); Phosphorus 3.3 mg/dL (2.5-4.5); Potassium 4.2 mmol/L (3.5-5.1); Sodium 140 mmol/L (136-145); Total Bilirubin 0.5 mg/dL (0.15-1.2); Total Protein 7.3 g/dL (6.6-8.7)
[2024-04-01] MEDS: FUROsemide 10 mg/mL SDV 4mL 40 MG IVP ×2 (05:59→17:11)
[2024-04-01 06:53] LABS: Glucose Point of Care 131 mg/dL (70-110)
--- NOTE | 2024-04-01 07:58 | PM.CONSULT ---
Providers/Reason For Consult Consulting Physician/Specialty*: Dr. Panchito Sparks DO/General Surgery Reason for Consult*: Acute calculous cholecystitis Attending Physician: Jonny Ramirez MD Primary Care Provider: Rafael Jacobson DO History of Present Illness History of Present Illness Boris Lauren is a 53 year old male, with a history of hep C, alcoholism, type 2 diabetes mellitus, liver cirrhosis and morbid obesity, who presented to the hospital with a 1 week history of flulike symptoms including chills and myalgias followed by difficulty in breathing. Workup revealed acute calculus cholecystitis and tenderness in his right upper quadrant. Without palpation, he reports that he does not have any abdominal pain. The pain does not radiate. He denies any nausea, emesis, diarrhea, hematochezia and/or melena Review of Systems General: Reports: 10 or more systems reviewed and unremarkable except in HPI and below Medications/Allergies Home Medications ?Medication ?Instructions ?Recorded ?Confirmed ?Last Taken ?Type lisinopril 40 mg tablet 40 mg PO DAILY #90 tabs 03/01/23 03/30/24 03/30/24 Rx amlodipine 10 mg tablet 10 mg PO DAILY 03/30/24 03/30/24 03/30/24 History chlorthalidone 25 mg tablet 25 mg PO DAILY 03/30/24 03/30/24 03/30/24 History Allergies Allergy/AdvReac Type Severity Reaction Status Date / Time No Known Allergies Allergy Verified 08/22/23 14:45 Current Medications Generic Name Dose Route Start Last Admin Trade Name Freq PRN Reason Stop Dose Admin Acetaminophen 650 mg 03/30/24 19:49 03/31/24 18:33 Acetaminophen 325 Mg Tablet PO 650 mg Q6H PRN Administration Mild/Mod Pain Or Temp >/= 101 Amlodipine Besylate 10 mg 03/31/24 09:00 03/31/24 09:48 Amlodipine 10 Mg Tablet PO 10 mg DAILY KO Administration Budesonide 0.5 mg 03/30/24 20:00 03/31/24 20:54 Budesonide 0.5 Mg/2 Ml Neb INHALATION Not Given BID.RESPIRATORY KO Ceftriaxone Sodium 1,000 mg 03/30/24 19:49 03/31/24 20:13 Ceftriaxone 1,000 Mg Sdv IVP 1,000 mg Q24H KO Administration Protocol Docusate Sodium 100 mg 03/30/24 19:49 03/31/24 18:33 Docusate Sodium 100 Mg Capsule PO 100 mg BID KO Administration Folic Acid 1 mg 03/31/24 09:00 03/31/24 09:48 Folic Acid 1 Mg Tablet PO 1 mg DAILY KO Administration Furosemide 40 mg 03/31/24 05:00 04/01/24 05:59 Furosemide 10 Mg/Ml Sdv 4ml IVP 40 mg Q12H KO Administration Heparin Sodium (Porcine) 5,000 unit 03/31/24 09:00 03/31/24 20:13 Heparin 5,000 Unit/Ml Inj 1 Ml SUBCUT 5,000 unit Q12H KO Administration Insulin Human Lispro 0 unit 03/31/24 18:00 03/31/24 22:14 Insulin Lispro 100 Unit/1 Ml SUBCUT 2 unit WM&BEDTIME KO Administration Protocol Ipratropium Boyd 0.5 mg 03/31/24 08:00 04/01/24 01:35 Ipratropium 0.5 Mg/2.5 Ml Neb INHALATION Not Given Q6H.RESP KO Levalbuterol HCl 0.63 mg 03/30/24 20:00 04/01/24 01:35 Levalbuterol 0.63 Mg/3 Ml Neb INHALATION Not Given Q6H.RESP KO Lisinopril 40 mg 03/31/24 09:00 03/31/24 09:48 Lisinopril 20 Mg Tablet PO 40 mg DAILY KO Administration Metformin HCl 1,000 mg 03/31/24 18:00 03/31/24 18:39 Metformin 500 Mg Tablet PO Not Given BIDWM KO Methylprednisolone Sodium Succinate 40 mg 03/31/24 20:00 03/31/24 20:13 Methylprednisolone Sod Succ 40 Mg/Ml Inj IVP 40 mg Q12H KO Administration Morphine Sulfate 2 mg 03/30/24 19:49 03/31/24 07:44 Morphine 4 Mg/Ml Sdv 1 Ml IVP 2 mg Q4H PRN Administration SEVERE PAIN Multivitamins Therapeutic 1 tab 03/31/24 09:00 03/31/24 09:48 Multivitamin Therapeutic Tablet PO 1 tab DAILY KO Administration Nicotine 1 patch 03/30/24 19:49 03/31/24 09:48 Nicotine 14 Mg Patch TRANSDERMA Not Given DAILY OK Pantoprazole Sodium 40 mg 03/30/24 19:49 03/31/24 20:13 Pantoprazole 40 Mg Sdv IVP 40 mg Q24H KO Administration Thiamine Mononitrate 100 mg 03/31/24 09:00 03/31/24 09:48 Thiamine 100 Mg Tablet PO 100 mg DAILY KO Administration PFSH Acute PFSH: Medical History Liver cirrhosis Hepatitis C Basal cell carcinoma of face Type 2 diabetes mellitus Morbidly obese Alcohol use Essential hypertension Surgical History S/P spinal fusion History of surgery on left wrist -Has metal plates in his left wrist Family History Father CAD (coronary artery disease) Social History Smoking and tobacco/nicotine status: current every day tobacco/nicotine user cigarettes Packs smoked per day: 1 and smokeless tobacco Alcohol intake: current Alcohol intake frequency: few times a week Alcohol type: hard liquor Substance/Drug Use: never Vitals/I&O/Wt Last Vital Signs Temp 98.3 F 04/01/24 04:00 Pulse 75 04/01/24 07:29 Resp 17 04/01/24 07:29 BP 130/72 04/01/24 07:29 Pulse Ox 90 04/01/24 07:29 O2 Del Method Nasal Cannula 04/01/24 04:00 O2 Flow Rate 4 03/31/24 23:08 03/31/24 04/01/24 04/01/24 22:59 06:59 14:59 Intake Total 480 / 960 Output Total 3150 / 5150 1175 / 6302 Balance -2670 / -4190 -1175 / -5365 Weight last 48 hrs Weight 370 lb Weight 370 lb Weight 370 lb Physical Exam Narrative: General : Patient is well developed , no acute distress, oriented x3 Head : Normal cephalic, a-traumatic. Ears : Pinnae and external canal are normal. Hearing is normal. Eyes : PERRLA, Sclera and injection are normal. No conjunctival discharge. Nose : Mucous membranes are without erythema. Throat : buccal mucosa is normal, gums are without significant recession or hypertrophy. Lungs : Equal chest rise bilaterally, no use of accessory muscles, trachea is midline. Cor : Rate and rhythm are normal. Abdomen : Soft, ND, tender right upper quadrant, negative Beard's, no g/r/m Extremities : No edema, no cyanosis or clubbing, dorsalis pedis pulses are present bilaterally, non-tender to palpation of calves. Upper extremities are normal bilaterally. Back : non-tender to palpation, no CVA tenderness. Neuro : CN II - XII intact, Upper and lower extremities have equal and full strength Data 04/01/24 05:17 04/01/24 05:17 Micro: Microbiology 03/30/24 23:47 Blood Culture - Preliminary Blood NEGATIVE TO DATE 03/30/24 23:40 Blood Culture - Preliminary Blood NEGATIVE TO DATE A&P Assessment and plan (1) Acute calculous cholecystitis: (2) Liver cirrhosis: (3) Hepatitis C: (4) Morbidly obese: Plan Laparoscopic cholecystectomy The risks and benefits of the procedure, including but not limited to, bleeding, infection, scar, numbness, pain, damage to surrounding structures, damage to common bile duct requiring additional surgery, conversion to an open procedure, were explained to the patient. He is understanding of the risks and wishes to proceed. PDMP PDMP Reviewed: Not Reviewed Coding Level of Care Code 04031 Diagnoses Acute calculous cholecystitis K80.00 Liver cirrhosis K74.60 Hepatitis C B19.20 Morbidly obese E66.01
--- NOTE | 2024-04-01 08:16 | ANES.PREANE2 ---
Pre-Anesthetic Assessment Height/Weight: Height 6 ft 4 in Weight 370 lb Temp Pulse Resp BP Pulse Ox O2 Del Method O2 Flow Rate 98.3 F 75 17 130/72 90 Nasal Cannula 4 04/01/24 04:00 04/01/24 07:29 04/01/24 07:29 04/01/24 07:29 04/01/24 07:29 04/01/24 04:00 03/31/24 23:08 Preop Diagnosis: Acute cholecystitis Operation Date: 04/01/24 11:50 Proposed Procedures p Laparoscopic Cholecystectomy(Not Applicable) - Panchito Sparks, DO Was Beta Nicole taken within 24 hours: N/A Was Clonidine taken within 24 hours: N/A Anesthetic Plan ASA status: 4E Anesthesia: General Other: Patient presents to the ER 03/30/2024 with shortness of breath. Patient found to have acute cholecystitis No prior issues with anesthesia NPO since yesterday History significant for hepatitis C with liver cirrhosis Chronic alcohol use, 4 shots of whiskey every night BMI 45 Type 2 diabetes Hypertension on lisinopril amlodipine and chlorthalidone Current smoker Talk screen positive for amphetamines on 03/31/2024. Vitals are currently stable Labs reviewed today, leukocytosis noted. Hemoglobin 15.6 Echo performed yesterday showing EF 55% with left ventricular hypokinesis EKG sinus rhythm Medications/Allergies Home Medications ?Medication ?Instructions ?Recorded ?Confirmed ?Last Taken ?Type lisinopril 40 mg tablet 40 mg PO DAILY #90 tabs 03/01/23 03/30/24 03/30/24 Rx amlodipine 10 mg tablet 10 mg PO DAILY 03/30/24 03/30/24 03/30/24 History chlorthalidone 25 mg tablet 25 mg PO DAILY 03/30/24 03/30/24 03/30/24 History Allergies Allergy/AdvReac Type Severity Reaction Status Date / Time No Known Allergies Allergy Verified 08/22/23 14:45 Current Medications Generic Name Dose Route Start Last Admin Trade Name Freq PRN Reason Stop Dose Admin Acetaminophen 650 mg 03/30/24 19:49 03/31/24 18:33 Acetaminophen 325 Mg Tablet PO 650 mg Q6H PRN Administration Mild/Mod Pain Or Temp >/= 101 Amlodipine Besylate 10 mg 03/31/24 09:00 03/31/24 09:48 Amlodipine 10 Mg Tablet PO 10 mg DAILY KO Administration Budesonide 0.5 mg 03/30/24 20:00 03/31/24 20:54 Budesonide 0.5 Mg/2 Ml Neb INHALATION Not Given BID.RESPIRATORY KO Ceftriaxone Sodium 1,000 mg 03/30/24 19:49 03/31/24 20:13 Ceftriaxone 1,000 Mg Sdv IVP 1,000 mg Q24H KO Administration Protocol Docusate Sodium 100 mg 03/30/24 19:49 03/31/24 18:33 Docusate Sodium 100 Mg Capsule PO 100 mg BID KO Administration Folic Acid 1 mg 03/31/24 09:00 03/31/24 09:48 Folic Acid 1 Mg Tablet PO 1 mg DAILY KO Administration Furosemide 40 mg 03/31/24 05:00 04/01/24 05:59 Furosemide 10 Mg/Ml Sdv 4ml IVP 40 mg Q12H KO Administration Heparin Sodium (Porcine) 5,000 unit 03/31/24 09:00 03/31/24 20:13 Heparin 5,000 Unit/Ml Inj 1 Ml SUBCUT 5,000 unit Q12H KO Administration Insulin Human Lispro 0 unit 03/31/24 18:00 03/31/24 22:14 Insulin Lispro 100 Unit/1 Ml SUBCUT 2 unit WM&BEDTIME KO Administration Protocol Ipratropium [place] 0.5 mg 03/31/24 08:00 04/01/24 01:35 Ipratropium 0.5 Mg/2.5 Ml Neb INHALATION Not Given Q6H.RESP KO Levalbuterol HCl 0.63 mg 03/30/24 20:00 04/01/24 01:35 Levalbuterol 0.63 Mg/3 Ml Neb INHALATION Not Given Q6H.RESP KO Lisinopril 40 mg 03/31/24 09:00 03/31/24 09:48 Lisinopril 20 Mg Tablet PO 40 mg DAILY KO Administration Metformin HCl 1,000 mg 03/31/24 18:00 03/31/24 18:39 Metformin 500 Mg Tablet PO Not Given BIDWM KO Methylprednisolone Sodium Succinate 40 mg 03/31/24 20:00 03/31/24 20:13 Methylprednisolone Sod Succ 40 Mg/Ml Inj IVP 40 mg Q12H KO Administration Morphine Sulfate 2 mg 03/30/24 19:49 03/31/24 07:44 Morphine 4 Mg/Ml Sdv 1 Ml IVP 2 mg Q4H PRN Administration SEVERE PAIN Multivitamins Therapeutic 1 tab 03/31/24 09:00 03/31/24 09:48 Multivitamin Therapeutic Tablet PO 1 tab DAILY KO Administration Nicotine 1 patch 03/30/24 19:49 03/31/24 09:48 Nicotine 14 Mg Patch TRANSDERMA Not Given DAILY KO Pantoprazole Sodium 40 mg 03/30/24 19:49 03/31/24 20:13 Pantoprazole 40 Mg Sdv IVP 40 mg Q24H KO Administration Thiamine Mononitrate 100 mg 03/31/24 09:00 03/31/24 09:48 Thiamine 100 Mg Tablet PO 100 mg DAILY KO Administration PFSH Anesthesia Medical History Liver cirrhosis Hepatitis C Basal cell carcinoma of face Type 2 diabetes mellitus Morbidly obese Alcohol use Essential hypertension Surgical History S/P spinal fusion History of surgery on left wrist -Has metal plates in his left wrist Family History Father CAD (coronary artery disease) Social History Smoking and tobacco/nicotine status: current every day tobacco/nicotine user cigarettes Packs smoked per day: 1 and smokeless tobacco Alcohol intake: current Alcohol intake frequency: few times a week Alcohol type: hard liquor Substance/Drug Use: never Data Anesthesia 04/01/24 05:17 04/01/24 05:17 Short CBC 03/30/24 03/31/24 04/01/24 Range/Units 13:00 05:32 05:17 WBC 6.21 6.85 15.01 H (3.29-11.43) 10^3/uL Hgb 14.30 15.30 15.60 (11.27-16.99) g/dL Hct 46.0 49.5 51.6 (37-53) % MCV 101.8 H 101.4 H 102.2 H (82-101) fl Plt Count 170 170 240 D (157-399) 10^3/cmm Neut % (Auto) 74.7 89.0 88.6 % Neut # (Auto) 4.64 6.09 13.30 H (1.8-7.7) 10^3/uL BMP 03/30/24 03/31/24 04/01/24 13:00 05:32 05:17 Sodium 139 140 140 Potassium 4.2 4.7 4.2 Chloride 99 97 L 96 L Carbon Dioxide 33 H 35 H 38 H BUN 11 11 17 Creatinine 0.8 0.8 0.7 Glucose 177 H 181 H 146 H Calcium 8.7 8.9 9.2 Cardiac Enzymes 03/30/24 03/30/24 03/30/24 Range/Units 13:00 15:17 18:34 Troponin T Baseline 7 (0-15) ng/L Troponin T 120 Minute 6.07 (0-15) ng/L Delta Troponin T -0.93 L (0-10) ABS# Troponin T Hi Sens 6Hr 6.00 (0-15) ng/L Troponin T Hi Sens 6Hr Delta -1.00 L (0-12) ng/L NT-Pro-B Natriuret Pep 3945 H (0-125) pg/mL Liver Function 03/30/24 03/31/24 04/01/24 Range/Units 13:00 05:32 05:17 Total Bilirubin 0.6 0.5 0.5 (0.15-1.2) mg/dL AST 34 27 31 (0-40) U/L ALT 50 H 47 H 47 H (0-41) U/L Alkaline Phosphatase 66 70 66 (40-130) U/L Albumin 3.8 4.0 4.1 (3.5-5.2) g/dL Urine 03/31/24 Range/Units 16:40 Urine Color Yellow (Yellow) Urine Appearance Clear (CLEAR) Urine pH 5.5 (5-7) Ur Specific [place] 1.010 (1.005-1.030) Urine Protein Negative (Negative) Urine Glucose (UA) Negative (Normal) Urine Ketones Negative (Negative) Urine Nitrate Negative (Negative) Urine Bilirubin Negative (Negative) Ur Leukocyte Esterase Negative (Negative) Urine RBC 0-2 (0-2) /hpf Urine WBC 0-5 (0-5) /hpf COVID Results 03/30/24 12:44 Coronavirus (PCR) Negative ABG 03/30/24 13:40 Specimen Type Arterial Sample Site Brachial, left ABG pH 7.36 ABG pCO2 60.1 H* ABG pO2 67.8 L ABG PO2/FiO2 Ratio 211 ABG HCO3 34.0 H ABG O2 Saturation 92.8 ABG Base Excess 6.4 H A-a O2 Gradient 11.5 H O2 Delivery Device Nc O2 Liters/Min 3.0 FiO2 32.0 Microbiology 03/30/24 23:47 Blood Culture - Preliminary Blood NEGATIVE TO DATE 03/30/24 23:40 Blood Culture - Preliminary Blood NEGATIVE TO DATE Cardiac Studies: Echocardiogram 03/31/24
[2024-04-01 09:05] LABS: Glucose Point of Care 157 mg/dL (70-110)
[2024-04-01] MEDS: sodium chloride 0.9% 1,000 ML 30 ML IV (09:05)
[2024-04-01] MEDS: piperacillin-tazobactam 3.375 GM in sodium chloride 0.9% (plus) 50 ML IV (11:30)
[2024-04-01] MEDS: lidocaine-epi 2% PF 1:200,000 20 mL SDV XX (11:51)
--- NOTE | 2024-04-01 12:23 | P.OP_ITS ---
Operative Report Date of procedure: April 01, 2024 Pre-op diagnosis: Acute calculous cholecystitis Post-op diagnosis: Calculous cholecystitis with gallstone lodged in the neck of the gallbladder Liver cirrhosis Surgeon: Panchito Sparks DO Procedure: Procedure performed: Laparoscopic cholecystectomy Surgeon: Dr. Panchito Sparks DO Estimated blood loss: 5 mL Specimens: Gallbladder to pathology Complications: None apparent Description of procedure: Patient was wheeled into the operative room and placed on the OR table in a s upine position. Abdomen was inspected prepped and draped in usual sterile fashion. Time-out was performed and all present were in agreement. A 15 blade scalp was used to make a stab incision in the left upper quadrant and intra- abdominal insufflation was achieved using a Veress needle. After localizing the tissue incisions were made and a 5 millimeter trocar was placed into the umbilicus as well as 2 in the right upper quadrant. A 12 millimeter trocar was placed in the epigastrium. Gallbladder was grasped and elevated. The triangle of Calot was carefully dissected using blunt dissection and electrocautery until the triangle of Calot clearly identified. The cystic duct was clipped proximally and double clipped distally. The duct was then ligated proximally. The cystic artery was doubly clipped and ligated. The gallbladder was then removed from the liver bed using electrocautery. The gallbladder was removed from the abdomen using an Endo-Catch bag through the epigastric incision. The liver bed was inspected and no bleeding was seen. The abdomen was irrigated and suctioned. All ports removed. Skin was washed and dried. Incisions were closed with 4-0 Monocryl in a subcuticular interrupted fashion. Skin glue was applied. Patient tolerated the procedure well.
[2024-04-01 13:28] LABS: Arterial Blood Gas Hematocrit 53.1 % (42-52); Base Excess ABG 6.8 mmol/L (-2.0-2.0); Blood Gas Allen Test Pos; Blood Gas Sample Type Arterial; PO2 ABG 91.1 mmHg (80.0-100.0)
[2024-04-01 13:29] LABS: Blood Gas Operator Identificat GD; Blood Gas Sample Site Not specified; Oxygen Device VENT
--- NOTE | 2024-04-01 13:58 | XRR_ITS ---
PROCEDURE INFORMATION: Exam: XR Chest Exam date and time: 04/01/2024 3:04 PM Age: 53 years old Clinical indication: Device placement; Ett placement (vent status); Prior surgery; Surgery date: 6+ months; Surgery type: Cervical/thoracic fusion; Ett/og placement; Respiratory failure post op cholecystectomy today TECHNIQUE: Imaging protocol: Radiologic exam of the chest. Views: 1 view. COMPARISON: CT angio chest PE prot [id number] 03/30/2024 3:36 PM FINDINGS: Tubes, catheters and devices: There is an enteric tube which tracks into the stomach and off the field of view. Lungs: No focal consolidation. Pleural spaces: Unremarkable. No pleural effusion. No pneumothorax. Heart/Mediastinum: Unremarkable. No cardiomegaly. Bones/joints: Partially visualized fusion hardware in the upper thoracic spine. XR/XR chest 1V portable [id number] IMPRESSION: 1. No focal consolidation. 2. There is an enteric tube which tracks into the stomach and off the field of view.
--- NOTE | 2024-04-01 13:58 | PC.NURSE ---
1350 transferred to ICU 10. Report to BJ. Dr. Belcher given report to Sophia
--- NOTE | 2024-04-01 14:05 | ANE.PACU2 ---
Inpatient post-anesthesia follow up: Airway intact: Yes (ETT in place) Vital signs: Temperature 99.3 F Pulse Rate 85 Respiratory Rate 16 Blood Pressure 93/56 Pulse Oximetry 91 Oxygen Delivery Me thod Mechanical Ventila tion Oxygen Flow Rate 10 Fraction of Inspir ed Oxygen 80 Hydration adequate: Yes Nausea and vomiting: No Pain level: 1 Mental status: Altered (Sedated) Additional Comments: Patient was experiencing hypercarbia and was not taking adequate tidal volumes. After obtaining ABG, decision was made to leave patient intubated and take him to the ICU
[2024-04-01] MEDS: levalbuterol 0.63 mg/3 mL Neb INHALATION ×2 (14:18→20:28)
[2024-04-01] MEDS: ipratropium 0.5 mg/2.5 mL Neb INHALATION ×2 (14:18→20:28)
[2024-04-01 15:00] LABS: Basophils % 0.1 %; Eosinophils % 0.1 %; Hematocrit 51.9 % (37-53); Lymphocytes # 0.6 10^3/uL (0.8-4.8); Lymphocytes % 3.4 %; Mean Corpuscular HGB Conc 30.4 g/dL (30-55); Mean Corpuscular Hemoglobin 31.6 pg (27-33); Mean Corpuscular Volume 103.8 fl (82-101); Mean Platelet Volume 11.3 fL (7.4-10.4); Monocytes # 1.1 10^3/uL (0.2-0.9); Monocytes % 5.6 %; Neutrophils # 17.15 10^3/uL (1.8-7.7); Neutrophils % 90.4 %; Nucleated Red Blood Cells % 0 %; Platelet Count 330 10^3/cmm (157-399); Red Cell Distribution Width 14.1 % (12.1-15.1); White Blood Count 18.95 10^3/uL (3.29-11.43)
[2024-04-01] MEDS: sodium chloride 0.9% 1,000 ML 999 ML IV (15:14)
[2024-04-01] MEDS: midazolam hcl 100 MG/100 ML BAG IV (15:18)
[2024-04-01] MEDS: fentaNYL 1,000 MCG/100 ML BAG 1 MCG IV (15:19)
[2024-04-01 15:21] LABS: Alanine Aminotransferase 62 U/L (0-41); Albumin Level 3.9 g/dL (3.5-5.2); Alkaline Phosphatase 62 U/L (40-130); Anion Gap 14.1 (5-19); Aspartate Amino Transferase 58 U/L (0-40); Blood Urea Nitrogen 21 mg/dL (6-20); Calcium 8.8 mg/dL (8.5-10.5); Carbon Dioxide 36 mmol/L (22-29); Chloride 94 mmol/L (98-107); Creatinine Clr Calc Pharmacy 105.2563; Glomerular Filtration Rate 53.4 mL/min (90-130); Glucose 176 mg/dL (65-115); Osmolality Calculated 297 mOsm/kg (285-295); Potassium 4.1 mmol/L (3.5-5.1); Sodium 140 mmol/L (136-145); Total Bilirubin 0.8 mg/dL (0.15-1.2); Total Protein 6.9 g/dL (6.6-8.7)
[2024-04-01] MEDS: norepinephrine 4 MG/250 ML BAG 22.5 MG IV (15:24)
[2024-04-01] MEDS: methylPREDNISolone sod succ 40 mg/mL INJ IVP ×2 (15:24→19:50)
--- NOTE | 2024-04-01 15:39 | P.PN_ITS ---
Subjective 2 Subjective: No acute events overnight. As per nursing staff he was on 4 to 5 L of oxygen supplementation. Has remained hemodynamically stable and afebrile preoperatively. Patient was taken to the OR for cholecystectomy before could be seen. When seen in PACU patient was mechanically ventilated, which ABG appreciated with a pH of 7.12 and a pCO2 of more than 100, systolic blood pressure of 80 mmHg. Vitals/I&O/Wt Last Vital Signs Temp 97.3 F L 04/01/24 13:26 Pulse 84 04/01/24 14:19 Resp 24 H 04/01/24 14:19 BP 91/54 04/01/24 13:45 Pulse Ox 91 04/01/24 14:19 O2 Del Method Mechanical Ventilation 04/01/24 14:19 O2 Flow Rate 10 04/01/24 13:26 FiO2 100 04/01/24 14:10 04/01/24 04/01/24 04/01/24 06:59 14:59 22:59 Intake Total 50 / 50 Output Total 1175 / 6325 0 / 0 Balance -1175 / -5365 50 / 50 Weight last 48 hrs Weight 167.829 kg Weight 167.829 kg Physical Exam 2 Narrative: General: No acute distress, AO x3, morbidly obese HEENT: PERRLA, pupils bilaterally equal and reactive Chest: Normal vesicular breath sounds, bilateral decreased air entry all over lung kiran, fine crackles present bilaterally lower zone up to mid lungs equal good air entry bilaterally CVS: S1-S2 regular, no murmurs, no tachycardia, no gallops, no rubs Abdomen: Soft, nontender, no organomegaly, bowel sounds present Neuro: No focal deficits, no facial deformity, AO x3, power 5/5 in all limbs Data 04/01/24 14:43 04/01/24 14:43 Micro: Microbiology 03/30/24 23:47 Blood Culture - Preliminary Blood NEGATIVE TO DATE 03/30/24 23:40 Blood Culture - Preliminary Blood NEGATIVE TO DATE A&P Assessment and plan (1) Respiratory acidosis: Developed hypercapnic respiratory failure with respiratory acidosis postoperatively. pH found to be 7.1 with pCO2 of 102. Maintain mechanical ventilation. Sedation with Versed and and fentanyl. Repeat ABG in 1 hour. Maintain mean artery pressure over 65. Start Levophed accordingly. Normal saline 1 L bolus. Stat CBC and CMP postoperatively. (2) Hypercapnic respiratory failure: High likelihood of an diagnosed obstructive sleep apnea at baseline. Component of congestive heart failure in setting of uncontrolled hypertension on admission. Monitor daily ABG. Daily chest x-ray while patient intubated. Solu-Medrol 40 mg IV every 6 hours. Pulmicort twice daily, ipratropium, Xopenex every 4 hours. Oxen supplementation keeping saturation over 88%. Continue with IV ceftriaxone as before. Patient was found to be MRSA positive. Will start IV vancomycin. Check sputum culture. (3) Encounter for postoperative care: (4) S/P cholecystectomy: (5) Cholecystitis with cholelithiasis: Denies any abdominal pain. Mild AST elevation. Does have mild tenderness on deep palpation in right upper quadrant Liver ultrasound consistent with acute cholecystitis with cholelithiasis. Mild leukocytosis today most likely in setting of IV steroids. Patient hemodynamically stable preoperatively. Continue with IV ceftriaxone. Patient could not tolerate MRCP. Underwent cholecystectomy with surgical team today. Could not be extubated postoperatively. (6) Shortness of breath: MRSA positive. Concern for hypercapnic respiratory failure in setting of undiagnosed obstructive sleep apnea with congestive heart failure due to uncontrolled hypertension on admission. COVID-19/flu/RSV negative on admission. Echocardiogram showed an EF of 50% with global LV hypokinesia with grade 2 diastolic dysfunction. (7) Congestive heart failure: Echocardiogram pending Strict input output charting. Fluid restriction to less than 1500 cc. IV Lasix 40 mg twice daily. Extra dose of 40 mg of Lasix today. Depending on echocardiogram results will plan for further workup. (8) Flu-like symptoms: Supportive treatment. (9) Acute on chronic respiratory failure with hypoxia and hypercapnia: ABG showing hypercapnia and hypoxia. pH normal. High concern for baseline COPD versus obstructive sleep apnea. Patient would benefit from outpatient sleep study. (10) Uncontrolled hypertension: Goal blood pressure less than 140/90 mmHg. Blood pressure soft for now. Hold off on antihypertensive. Maintain mean artery pressure 65. (11) Alcohol use: Chronic. Daily 4 shots of whiskey use. CIWA protocol. (12) Liver cirrhosis: Chronic alcohol use. Hepatitis C positive. Negative HIV. (13) Type 2 diabetes mellitus: A1c of 6.8. Not on any antidiabetic medications. Insulin sliding scale low-dose protocol. Start on metformin 1000 mg twice daily. Patient will benefit from outpatient oral hypoglycemics. Qualifiers: Diabetes mellitus middle or intermediate school principal insulin use: without penitentiary use Diabetes mellitus complication status: without complication Qualified Code(s): E11.9 - Type 2 diabetes mellitus without complications (14) Morbidly obese: (15) Nicotine dependence, cigarettes, with unspecified nicotine-induced disorders: Nicotine patch. Counseled against smoking. (16) Hepatitis C: Plan Anesthesia: Sedate with fentanyl and Versed Glycemic control: New diagnosis. Insulin sliding scale low-dose protocol every 6 hourly A1c 6.8 Nutrition: N.p.o. CODE STATUS: Full code PUD prophylaxis: Protonix DVT prophylaxis: Heparin 5000 Q12 hourly Discharge planning: Depending on clinical improvement going forward. Transfer to ICU for further care This documentation was created by [employer] distresser software. Every effort was made to ensure accuracy of distresser. Any obvious errors or omissions should be clarified with the author of the document. PDMP PDMP Reviewed: Not Reviewed Attestations 2 Medical Necessity Statement*: Requested hospitalization for management of postoperative hypercapnic respiratory failure with respiratory acidosis postcholecystectomy, and the patient admitted for shortness of breath due to COPD exacerbation and diastolic heart failure from uncontrolled hypertension Critical Care Time: The high probability of a clinically significant, sudden or life threatening deterioration of the patient's [cardiac, renal, pulmonary, GI] system(s) required my full and direct attention, intervention and personal management. The critical care time is as shown. This time is in addition to time spent performing any reported procedures but includes the following: [x] Data and vital sign review and interpretation [x] Patient assessment, examination and intervention [x] Documentation [x] Medication orders and management Critical Care Time (min): 90 Coding Level of Care Code Critical Care >/= 30 minutes Critical care time (in minutes): 90 The high probability of a clinically significant, sudden or life threatening deterioration, as referenced in this documentation, required my full and direct attention, intervention and personal management. The critical care time shown is in addition to time spent performing any reported separately billable procedures and includes the following: [x] Data and vital sign review and interpretation [x ] Patient assessment, examination and intervention [x] Medication orders and management [x] Patient/Family updates as able [x] Care Coordination and Documentation. Other Coding Information This patient has a high probability of clinically significant, sudden or life threatening deterioration of the patient's (neurological/pulmonary/cardiac/renal/ID/endocrine) systems required my full, direct attention, the highest level of physician preparedness for urgent intervention and personal management. I managed/supervised life or organ supporting interventions that required frequent physician assessment. I devoted my full attention in the ICU to the direct care of this patient for the period of time indicated above. Time I spent with family or surrogate(s) is included only if the patient was incapable of providing necessary information or participating in decision making. This time includes the following services provided: Telemetry review Mechanical Ventilation Hemodynamic interpretation, assessment and management Review and interpretation of CXR Review and interpretation of lab values Review and interpretation of microbiologic data and culture results Review of medications and administration Review and interpretation of Nutrition requirements and management Discussion of management with other consultants and services Clinical update to family members Diagnoses Respiratory acidosis E87.29 Hypercapnic respiratory failure J96.92 Encounter for postoperative care Z48.89 S/P cholecystectomy Z90.49 Cholecystitis with cholelithiasis K80.10 Shortness of breath R06.02 Congestive heart failure I50.9 Flu-like symptoms R68.89 Acute on chronic respiratory failure with hypoxia and hypercapnia J96.21; J96.22 Uncontrolled hypertension I10 Alcohol use F10.90 Liver cirrhosis K74.60 Type 2 diabetes mellitus without complication, without long-term current use of insulin E11.9 Diabetes mellitus middle or intermediate school principal insulin use: without middle or intermediate school principal use Diabetes mellitus complication status: without complication Morbidly obese E66.01 Nicotine dependence, cigarettes, with unspecified nicotine-induced disorders F17.219 Hepatitis C B19.20
[2024-04-01 16:34] LABS: Glucose Point of Care 169 mg/dL (70-110)
[2024-04-01 16:35] LABS: Alveolar-Arterial Oxygen Gradi 74.3 mmHg (5-10); Arterial Blood Gas Hematocrit 50.2 % (42-52); Base Excess ABG 10.3 mmol/L (-2.0-2.0); Blood Gas Allen Test Pos; Blood Gas Operator Identificat GD; Blood Gas Sample Site Radial, right; Blood Gas Sample Type Arterial; Blood Gas Tidal Volume 0.55; Carboxyhemoglobin 1.2 %THgb (0.4-20.1); HCO3 ABG 38.3 mmol/L (22-26); HGB O2 Sat 92.7 % (95-100); Ionized Calcium Level - ABG 1.1 mmol/L (1.1-1.4); Methemoglobin 1.1 % (0.4-1.5); Oxygen Device VENT; Oxygen Saturation ABG 94.8; PO2 ABG 74.7 mmHg (80.0-100.0); PO2 FiO2 Ratio Arterial Blood 74; Potassium Level - ABG 4.1 mmol/L (3.5-5.0); Total Hemoglobin 16.4 g/dL (14-18)
[2024-04-01 16:40] LABS: ABG PCO2 62.1 mmHg (35-45)
[2024-04-01 16:40] LABS: ABG PCO2 > 102.0 mmHg (35-45); ABG PH Result 7.12 (7.35-7.45)
[2024-04-01] MEDS: insulin lispro 100 unit/1 mL SUBCUT ×2 (17:10→22:03)
[2024-04-01] MEDS: cefTRIAXone 1,000 mg SDV 1000 MG IVP (19:50)
[2024-04-01] MEDS: pantoprazole 40 mg SDV IVP (19:50)
[2024-04-01 20:04] LABS: Glucose Point of Care 150 mg/dL (70-110)
[2024-04-01] MEDS: budesonide 0.5 mg/2 mL Neb INHALATION (20:28)
[2024-04-01] MEDS: fentaNYL 1,000 MCG/100 ML BAG 15 MCG IV (22:03)
[2024-04-01] MEDS: heparin 5,000 unit/mL INJ 1 mL 5000 UNIT SUBCUT (22:03)
[2024-04-02] VITALS (94 sets, daily range): BP systolic 77–122; BP diastolic 51–73; PULSE 80–96; RESP 16; TEMP 36.4–37.5; O2SAT 88–96
[2024-04-02] MEDS: levalbuterol 0.63 mg/3 mL Neb INHALATION ×6 (00:52→20:34)
[2024-04-02] MEDS: ipratropium 0.5 mg/2.5 mL Neb INHALATION ×6 (00:52→20:34)
[2024-04-02] MEDS: fentaNYL 1,000 MCG/100 ML BAG 15 MCG IV ×4 (01:55→20:39)
[2024-04-02] MEDS: methylPREDNISolone sod succ 40 mg/mL INJ IVP ×4 (01:55→19:27)
[2024-04-02] MEDS: chlorhexidine gluconate 4% Btl 118 mL 1 APPLIC TOPICAL (03:08)
[2024-04-02 03:37] LABS: Glucose Point of Care 165 mg/dL (70-110)
[2024-04-02] MEDS: midazolam hcl 100 MG/100 ML BAG 6 MG IV ×2 (03:40→19:33)
[2024-04-02] MEDS: insulin lispro 100 unit/1 mL SUBCUT ×4 (03:40→21:30)
[2024-04-02] MEDS: FUROsemide 10 mg/mL SDV 4mL 40 MG IVP ×2 (04:11→16:00)
[2024-04-02 04:59] LABS: Basophils % 0.1 %; Hematocrit 51.3 % (37-53); Lymphocytes # 0.7 10^3/uL (0.8-4.8); Lymphocytes % 4.4 %; Mean Corpuscular HGB Conc 30.6 g/dL (30-55); Mean Corpuscular Hemoglobin 31.7 pg (27-33); Mean Corpuscular Volume 103.4 fl (82-101); Mean Platelet Volume 11.5 fL (7.4-10.4); Monocytes # 0.9 10^3/uL (0.2-0.9); Neutrophils # 13.74 10^3/uL (1.8-7.7); Neutrophils % 89.1 %; Nucleated Red Blood Cells % 0 %; Platelet Count 293 10^3/cmm (157-399); Red Blood Count 4.96 10^6/uL (3.85-5.65); Red Cell Distribution Width 14.6 % (12.1-15.1)
[2024-04-02 05:19] LABS: Alanine Aminotransferase 63 U/L (0-41); Albumin Level 3.7 g/dL (3.5-5.2); Alkaline Phosphatase 55 U/L (40-130); Anion Gap 15.9 (5-19); Aspartate Amino Transferase 49 U/L (0-40); Blood Urea Nitrogen 37 mg/dL (6-20); Calcium 8.8 mg/dL (8.5-10.5); Carbon Dioxide 33 mmol/L (22-29); Chloride 96 mmol/L (98-107); Creatinine Clr Calc Pharmacy 44.6799; Globulin 2.8 g/dL (1.3-4.6); Glomerular Filtration Rate 19.2 mL/min (90-130); Glucose 177 mg/dL (65-115); Magnesium 2.1 mg/dL (1.7-2.3); Osmolality Calculated 303 mOsm/kg (285-295); Phosphorus 4.5 mg/dL (2.5-4.5); Potassium 4.9 mmol/L (3.5-5.1); Sodium 140 mmol/L (136-145); Total Bilirubin 0.7 mg/dL (0.15-1.2); Total Protein 6.5 g/dL (6.6-8.7)
[2024-04-02 05:47] LABS: ABG PH Result 7.39 (7.35-7.45); Alveolar-Arterial Oxygen Gradi 57.6 mmHg (5-10); Arterial Blood Gas Hematocrit 50.3 % (42-52); Base Excess ABG 9.1 mmol/L (-2.0-2.0); Blood Gas Operator Identificat SAM; Blood Gas Sample Site Brachial, right; Blood Gas Sample Type Arterial; Blood Gas Tidal Volume 0.55; HCO3 ABG 36.9 mmol/L (22-26); HGB O2 Sat 89.2 % (95-100); Ionized Calcium Level - ABG 1.1 mmol/L (1.1-1.4); Oxygen Device VENT; PO2 ABG 63.3 mmHg (80.0-100.0); PO2 FiO2 Ratio Arterial Blood 79; Potassium Level - ABG 4.6 mmol/L (3.5-5.0); Total Hemoglobin 16.4 g/dL (14-18)
[2024-04-02 05:49] LABS: ABG PCO2 60.5 mmHg (35-45)
--- NOTE | 2024-04-02 06:00 | XR_ITS ---
WS: [id number] XR chest 1V portable [id number] REASON FOR EXAM: Intubated FINDINGS: Properly positioned nasogastric tube and endotracheal tube. Cardiomegaly. Possible interval development of small volume bilateral pleural fluid with atelectasis in the lung bases. No other interval change or new finding. XR/XR chest 1V portable [id number] IMPRESSION: Possible interval change as above.
[2024-04-02] MEDS: albumin 12.5 GM/250 ML VIAL IV (06:13)
[2024-04-02] MEDS: budesonide 0.5 mg/2 mL Neb INHALATION ×2 (07:40→20:34)
[2024-04-02] MEDS: folic acid 1 mg Tablet PO (08:11)
[2024-04-02] MEDS: thiamine 100 mg Tablet PO (08:11)
[2024-04-02] MEDS: multivitamin therapeutic Tablet 1 TAB PO (08:12)
[2024-04-02] MEDS: heparin 5,000 unit/mL INJ 1 mL 5000 UNIT SUBCUT ×2 (08:25→21:30)
[2024-04-02] MEDS: nicotine 14 mg Patch 1 PATCH TRANSDERMA (08:27)
--- NOTE | 2024-04-02 09:22 | PM.PN ---
Subjective Subjective: Patient is still requiring Levophed Requested albumin with Lasix Patient still requiring high oxygen with PEEP Not ready to be extubated, Chest x-ray showing pleural effusion third spacing Urine output 800 mL Vitals/I&O/Wt Last Vital Signs Temp 99.5 F 04/02/24 08:15 Pulse 85 04/02/24 08:15 Resp 16 04/02/24 07:40 BP 83/55 04/02/24 08:15 Pulse Ox 92 04/02/24 08:15 O2 Del Method Mechanical Ventilation 04/02/24 07:40 O2 Flow Rate 10 04/01/24 13:26 FiO2 80 04/02/24 08:00 04/01/24 04/02/24 04/02/24 22:59 06:59 14:59 Intake Total 1220.633 / 1270.633 149.675 / 1420.308 350 / 350 Output Total 600 / 600 200 / 800 Balance 620.633 / 670.633 -50.325 / 620.308 350 / 350 Weight last 48 hrs Weight 177.037 kg Weight 177.037 kg Weight 167.829 kg Weight 167.829 kg Physical Exam Narrative: Patient intubated and sedated Morbidly obese Signs of third spacing FiO2 80% PEEP 10 Still requiring Levophed Bilateral breath sounds with rhonchi Surgical scars showing signs of healing No fever this morning Leukocytosis noted Neuroexam elevated Data 04/02/24 04:22 04/02/24 04:22 Micro: Microbiology 04/01/24 13:40 Gram Stain - Final Sputum - Endotracheal Tube Aspirate A&P Assessment and plan (1) Respiratory acidosis: (2) Hypercapnic respiratory failure: (3) Encounter for postoperative care: (4) S/P cholecystectomy: (5) Cholecystitis with cholelithiasis: . (6) Shortness of breath: (7) Congestive heart failure: (8) Flu-like symptoms: Supportive treatment. (9) Acute on chronic respiratory failure with hypoxia and hypercapnia: (10) Uncontrolled hypertension: (11) Alcohol use: Chronic. Daily 4 shots of whiskey use. CIWA protocol. (12) Liver cirrhosis: (13) Type 2 diabetes mellitus: . Qualifiers: Diabetes mellitus correction insulin use: without manager long term care use Diabetes mellitus complication status: without complication Qualified Code(s): E11.9 - Type 2 diabetes mellitus without complications (14) Morbidly obese: (15) Nicotine dependence, cigarettes, with unspecified nicotine-induced disorders: (16) Hepatitis C: Plan Perioperative respiratory failure requiring intubation Underlying COPD and sleep apnea Not ready to be extubated or start weaning trial Higher FiO2 and PEEP settings Patient is showing signs of third spacing, pleural effusion continue diuresis with albumin MRSA pneumonia Escalate antibiotics to vancomycin and cefepime Cholecystitis status post cholecystectomy Hypotensive Third spacing Liver cirrhosis HIV negative, hep C positive chronic alcohol Trial of albumin today Patient is diabetic, Accu-Cheks every 4-6 hours Hemoglobin A1c 6.8 Will start weaning trial once patient is off Levophed and FiO2 is below 50% and PEEP below 5 Patient is not ready yet Full code May need to start PPN versus TPN PDMP PDMP Reviewed: Not Reviewed Attestations Medical Necessity Statement*: Continue ICU management Coding Level of Care Code Critical Care >/= 30 minutes Diagnoses Respiratory acidosis E87.29 Hypercapnic respiratory failure J96.92 Encounter for postoperative care Z48.89 S/P cholecystectomy Z90.49 Cholecystitis with cholelithiasis K80.10 Shortness of breath R06.02 Congestive heart failure I50.9 Flu-like symptoms R68.89 Acute on chronic respiratory failure with hypoxia and hypercapnia J96.21; J96.22 Uncontrolled hypertension I10 Alcohol use F10.90 Liver cirrhosis K74.60 Type 2 diabetes mellitus without complication, without long-term current use of insulin E11.9 Diabetes mellitus correction insulin use: without manager long term care use Diabetes mellitus complication status: without complication Morbidly obese E66.01 Nicotine dependence, cigarettes, with unspecified nicotine-induced disorders F17.219 Hepatitis C B19.20 Time Spent (min) 30
[2024-04-02 09:31] LABS: Glucose Point of Care 161 mg/dL (70-110)
[2024-04-02 12:13] LABS: Ammonia 45 umol/L (16-60)
--- NOTE | 2024-04-02 13:47 | PC.NURSE ---
Patient still requiring high amounts of FIO2, and pressors. Notified Dr. Sawant to receive PICC line. He gave verbal orders for PICC
[2024-04-02 14:13] LABS: Adenovirus Not Detected (NOT DETECT); Chlamydia Pneumoniae Not Detected (NOT DETECT); Coronavirus 229E,HKU1,NL63,OC4 Not Detected (NOT DETECT); Human Metapneumovirus Not Detected (NOT DETECT); Human Rhinovirus/Enterovirus Not Detected (NOT DETECT); Influenza A Not Detected (NOT DETECT); Influenza A H1 Not Detected (NOT DETECT); Influenza A H1-2009 Not Detected (NOT DETECT); Influenza A H3 Not Detected (NOT DETECT); Influenza B Not Detected (NOT DETECT); Mycoplasma Pneumoniae Not Detected (NOT DETECT); Parainfluenza Virus Type 1 Not Detected (NOT DETECT); Parainfluenza Virus Type 2 Not Detected (NOT DETECT); Parainfluenza Virus Type 3 Not Detected (NOT DETECT); Parainfluenza Virus Type 4 Not Detected (NOT DETECT); Respiratory Syncytial Virus A Not Detected (NOT DETECT); Respiratory Syncytial Virus B Not Detected (NOT DETECT); SARS-COV-2 Not Detected (NOT DETECT)
--- NOTE | 2024-04-02 14:41 | XR_ITS ---
WS: [id number] XR chest 1V portable [id number] REASON FOR EXAM: picc FINDINGS: Left arm PICC line has been placed. The tip is in the distal SVC at the cavoatrial junction. Position is appropriate for use. Chest is otherwise unchanged compared to examination 04/02/2024 at 4:47 a.m. XR/XR chest 1V portable [id number] IMPRESSION: PICC line placement in proper position. PICC line position was discussed with the mechanical engineering technologist over the phone at 2:52 p.m.
[2024-04-02 15:33] LABS: Glucose Point of Care 141 mg/dL (70-110)
[2024-04-02] MEDS: norepinephrine 4 MG/250 ML BAG 7.5 MG IV (15:53)
[2024-04-02] MEDS: albumin 25 G/100 ML BAG 60 G IV (17:33)
[2024-04-02] MEDS: pantoprazole 40 mg SDV IVP (19:27)
[2024-04-02] MEDS: cefTRIAXone 1,000 mg SDV 1000 MG IVP (19:27)
[2024-04-02 21:21] LABS: Glucose Point of Care 142 mg/dL (70-110)
[2024-04-03] VITALS (102 sets, daily range): BP systolic 88–136; BP diastolic 53–82; PULSE 91–101; RESP 16–42; TEMP 37.2–38.4; O2SAT 82–91
[2024-04-03] MEDS: ipratropium 0.5 mg/2.5 mL Neb INHALATION ×6 (00:18→23:54)
[2024-04-03] MEDS: levalbuterol 0.63 mg/3 mL Neb INHALATION ×7 (00:18→23:54)
[2024-04-03] MEDS: methylPREDNISolone sod succ 40 mg/mL INJ IVP ×2 (01:50→08:11)
[2024-04-03] MEDS: fentaNYL 1,000 MCG/100 ML BAG 15 MCG IV ×4 (02:46→20:18)
[2024-04-03 03:20] LABS: Basophils % 0.1 %; Hematocrit 48.1 % (37-53); Lymphocytes # 0.7 10^3/uL (0.8-4.8); Lymphocytes % 4.7 %; Mean Corpuscular HGB Conc 31.6 g/dL (30-55); Mean Corpuscular Hemoglobin 31.7 pg (27-33); Mean Corpuscular Volume 100.2 fl (82-101); Mean Platelet Volume 11.4 fL (7.4-10.4); Monocytes # 1.3 10^3/uL (0.2-0.9); Neutrophils # 12.58 10^3/uL (1.8-7.7); Neutrophils % 85.6 %; Nucleated Red Blood Cells % 0 %; Platelet Count 231 10^3/cmm (157-399); Red Cell Distribution Width 14.7 % (12.1-15.1)
[2024-04-03 03:42] LABS: Anion Gap 19.9 (5-19); Blood Urea Nitrogen 69 mg/dL (6-20); Calcium 8.8 mg/dL (8.5-10.5); Carbon Dioxide 31 mmol/L (22-29); Chloride 95 mmol/L (98-107); Creatinine Clr Calc Pharmacy 27.1271; Glomerular Filtration Rate 10.8 mL/min (90-130); Glucose 163 mg/dL (65-115); Osmolality Calculated 316 mOsm/kg (285-295); Potassium 4.9 mmol/L (3.5-5.1); Sodium 141 mmol/L (136-145)
[2024-04-03 04:21] LABS: Glucose Point of Care 157 mg/dL (70-110)
[2024-04-03 04:24] LABS: ABG PH Result 7.35 (7.35-7.45); Base Excess ABG 6.1 mmol/L (-2.0-2.0); Blood Gas Allen Test Pos; Blood Gas Sample Type Arterial; Carboxyhemoglobin 1.1 %THgb (0.4-20.1); HGB O2 Sat 85.9 % (95-100); Ionized Calcium Level - ABG 1.1 mmol/L (1.1-1.4); Oxygen Saturation ABG 87.7; PO2 ABG 59.4 mmHg (80.0-100.0); Potassium Level - ABG 4.8 mmol/L (3.5-5.0); Total Hemoglobin 15.7 g/dL (14-18)
[2024-04-03 04:25] LABS: Alveolar-Arterial Oxygen Gradi 66.4 mmHg (5-10); Blood Gas Operator Identificat ED; Blood Gas Sample Site Radial, right; Blood Gas Tidal Volume 0.55; Oxygen Device VENT; PO2 FiO2 Ratio Arterial Blood 66
[2024-04-03 04:26] LABS: ABG PCO2 61.2 mmHg (35-45)
--- NOTE | 2024-04-03 04:26 | PC.NURSE ---
Patient has been saturating 88-90% on 90% Fio2 on the vent. Dr. Rivera notified of patient condition and lack of unit output/worsening kidney function. Dr. Rivera came to bedside to see patient and turned Peep up to 12, RT notified. Dr. Rivera ordered to hold the lasix due to creatinine level trending up.
[2024-04-03] MEDS: insulin lispro 100 unit/1 mL SUBCUT ×2 (04:30→10:27)
--- NOTE | 2024-04-03 06:00 | XRR_ITS ---
PROCEDURE INFORMATION: Exam: XR Chest Exam date and time: 04/03/2024 5:02 AM Age: 53 years old Clinical indication: Shortness of breath; Prior surgery; Surgery date: 6+ months; Surgery type: Spine fusion; Additional info: Intubated TECHNIQUE: Imaging protocol: Radiologic exam of the chest. Views: 1 view. COMPARISON: CR XR chest 1V portable [id number] 04/02/2024 2:43 PM FINDINGS: Tubes, catheters and devices: Enteric tube traverses midline, catheter tip is not well assessed on this projection. Left peripherally inserted upper extremity central venous access catheter which terminates about the level of the right atrium, similar to prior comparison. Endotracheal tube terminates about 4.9 cm from the sarita. Lungs: Stable basilar infiltrates. Pleural spaces: Stable right pleural effusion. Heart/Mediastinum: Unremarkable. No cardiomegaly. Bones/joints: Unremarkable. XR/XR chest 1V portable [id number] IMPRESSION: No significant interval change from 04/02/2024.
[2024-04-03] MEDS: heparin 5,000 unit/mL INJ 1 mL 5000 UNIT SUBCUT ×2 (08:11→21:41)
[2024-04-03] MEDS: multivitamin therapeutic Tablet 1 TAB PO (08:16)
[2024-04-03] MEDS: folic acid 1 mg Tablet PO (08:16)
[2024-04-03] MEDS: thiamine 100 mg Tablet PO (08:16)
[2024-04-03] MEDS: budesonide 0.5 mg/2 mL Neb INHALATION ×2 (08:23→20:00)
[2024-04-03 09:24] LABS: Glucose Point of Care 194 mg/dL (70-110)
--- NOTE | 2024-04-03 09:42 | XR_ITS ---
WS: [id number] XR chest 1V portable [id number] REASON FOR EXAM: temporary dialysis line FINDINGS: There is a great deal of overlying artifact and the chest is significantly rotated to the left. Difficult to identify the position of the lines and tubes. A left arm PICC line may be partially retracted from its previous position on 04/03/2024 5:00 a.m., But remains in the superior vena cava. The nasogastric tube appears to overlie the fundus of the stomach. The endotracheal tube is above the sarita in similar position to the examination of 04/03/2024 5:00 a.m. The lungs are hypoexpanded and there appears to be increased central venous congestion compared to the previous examination. There is increasing opacity in the lower right hemithorax which presumably is due to lung opacification and pleural effusion. XR/XR chest 1V portable [id number] IMPRESSION: Suboptimal examination with findings as above. Recommend repeat examination with the patient more properly positioned and kaitlynn baudilio of artifact overlying the chest as is possible. Better inspiration if possi ble.
--- NOTE | 2024-04-03 09:42 | PM.CONSULT ---
Providers/Reason For Consult Consulting Physician/Specialty*: frank campbell md/ telenephrology Reason for Consult*: YOSELIN Requesting Physician: Dr Grayson Sawant Attending Physician: Nelida Sawant MD Primary Care Provider: Rafael Jacobson DO History of Present Illness History of Present Illness Boris Lauren is a 53 year old male admitted on 03-30-24 w/ acute cholecystitis, COPD exacerbation, uncontrolled HTN. He has h/o COPD, CHF, ETOH use, obesity, tob use, and type 2 dm. On admission he had a CTA. He was started on furosemide, steroids. he continued on amlodipine and lisinopril. He was diagnosed w/ acute calculus cholecystitis and tenderness in his right upper quadrant. He was seen by Dr Sparks. and he had a Lap CCY on 04/01/24. post -op he had severe hypercapneic resp acidosis with PCO2 > 100 and hypotension. he was diagnosed w/ MRSA PNA- and abx changed to vanco and cefepime. he has required Levophed and he is third spacing and oliguric. Baseline cr was 0.7 mg/dl. in afternoon of 04-01-24 cr ronald to 1.4 mg/dl, cr 3.4 and today cr of 5.6 mg/dl. renal called to consult. Review of Systems Narrative: not able to obtain Medications/Allergies Home Medications ?Medication ?Instructions ?Recorded ?Confirmed ?Last Taken ?Type lisinopril 40 mg tablet 40 mg PO DAILY #90 tabs 03/01/23 03/30/24 03/30/24 Rx amlodipine 10 mg tablet 10 mg PO DAILY 03/30/24 03/30/24 03/30/24 History chlorthalidone 25 mg tablet 25 mg PO DAILY 03/30/24 03/30/24 03/30/24 History Allergies Allergy/AdvReac Type Severity Reaction Status Date / Time No Known Allergies Allergy Verified 08/22/23 14:45 Current Medications Generic Name Dose Route Start Last Admin Trade Name Freq PRN Reason Stop Dose Admin Acetaminophen 650 mg 03/30/24 19:49 03/31/24 18:33 Acetaminophen 325 Mg Tablet PO 650 mg Q6H PRN Administration Mild/Mod Pain Or Temp >/= 101 Amlodipine Besylate 10 mg 03/31/24 09:00 03/31/24 09:48 Amlodipine 10 Mg Tablet PO 10 mg DAILY KO Administration Budesonide 0.5 mg 03/30/24 20:00 04/03/24 08:23 Budesonide 0.5 Mg/2 Ml Neb INHALATION 0.5 mg BID.RESPIRATORY KO Administration Ceftriaxone Sodium 1,000 mg 03/30/24 19:49 04/02/24 19:27 Ceftriaxone 1,000 Mg Sdv IVP 1,000 mg Q24H KO Administration Protocol Chlorhexidine Gluconate 1 applic 04/02/24 02:06 04/02/24 03:08 Chlorhexidine Gluconate 4% Btl 118 Ml TOPICAL 1 applic DAILY PRN Administration Bed Bath Docusate Sodium 100 mg 03/30/24 19:49 04/03/24 08:17 Docusate Sodium 100 Mg Capsule PO Not Given BID KO Folic Acid 1 mg 03/31/24 09:00 04/03/24 08:16 Folic Acid 1 Mg Tablet PO 1 mg DAILY KO Administration Furosemide 40 mg 03/31/24 05:00 04/02/24 16:00 Furosemide 10 Mg/Ml Sdv 4ml IVP 40 mg Q12H KO Administration Heparin Sodium (Porcine) 5,000 unit 03/31/24 09:00 04/03/24 08:11 Heparin 5,000 Unit/Ml Inj 1 Ml SUBCUT 5,000 unit Q12H KO Administration Norepinephrine Bitartrate 4 mg in 250 mls @ 0 mls/hr 04/01/24 14:00 04/02/24 15:53 Levophed IV 2 mcg/min .Q0M KO 7.5 mls/hr Administration Protocol Per Protocol Fentanyl 1,000 mcg in 100 mls @ 0 mls/hr 04/01/24 14:00 04/03/24 07:44 Sublimaze IV 150 mcg/hr .Q0M KO 15 mls/hr Administration Protocol Per Protocol Midazolam HCl 100 mg in 100 mls @ 0 mls/hr 04/01/24 14:00 04/02/24 19:33 Versed IV 6 mg/hr .Q0M KO 6 mls/hr Administration Protocol Per Protocol Insulin Human Lispro 0 unit 04/01/24 16:00 04/03/24 04:30 Insulin Lispro 100 Unit/1 Ml SUBCUT 2 unit Q6H KO Administration Protocol Ipratropium [place] 0.5 mg 04/01/24 16:00 04/03/24 08:23 Ipratropium 0.5 Mg/2.5 Ml Neb INHALATION 0.5 mg Q4H.RESPIRATORY KO Administration Levalbuterol HCl 0.63 mg 04/01/24 16:00 04/03/24 08:23 Levalbuterol 0.63 Mg/3 Ml Neb INHALATION 0.63 mg Q4H.RESPIRATORY KO Administration Lisinopril 40 mg 03/31/24 09:00 03/31/24 09:48 Lisinopril 20 Mg Tablet PO 40 mg DAILY KO Administration Methylprednisolone Sodium Succinate 40 mg 04/01/24 14:15 04/03/24 08:11 Methylprednisolone Sod Succ 40 Mg/Ml Inj IVP 40 mg Q6H KO Administration Multivitamins Therapeutic 1 tab 03/31/24 09:00 04/03/24 08:16 Multivitamin Therapeutic Tablet PO 1 tab DAILY KO Administration Nicotine 1 patch 03/30/24 19:49 04/03/24 08:16 Nicotine 14 Mg Patch TRANSDERMA Not Given DAILY KO Pantoprazole Sodium 40 mg 03/30/24 19:49 04/02/24 19:27 Pantoprazole 40 Mg Sdv IVP 40 mg Q24H KO Administration Thiamine Mononitrate 100 mg 03/31/24 09:00 04/03/24 08:16 Thiamine 100 Mg Tablet PO 100 mg DAILY KO Administration PFSH Acute PFSH: Medical History Liver cirrhosis Hepatitis C Basal cell carcinoma of face Type 2 diabetes mellitus Morbidly obese Alcohol use Essential hypertension Surgical History S/P spinal fusion History of surgery on left wrist -Has metal plates in his left wrist Family History Father CAD (coronary artery disease) Social History Smoking and tobacco/nicotine status: current every day tobacco/nicotine user cigarettes Packs smoked per day: 1 and smokeless tobacco Alcohol intake: current Alcohol intake frequency: few times a week Alcohol type: hard liquor Substance/Drug Use: never Vitals/I&O/Wt Last Vital Signs Temp 99.5 F 04/03/24 04:00 Pulse 91 04/03/24 08:18 Resp 18 04/03/24 08:26 BP 97/58 04/03/24 08:00 Pulse Ox 89 L 04/03/24 08:26 O2 Del Method Mechanical Ventilation 04/03/24 08:18 O2 Flow Rate 10 04/01/24 13:26 FiO2 90 04/03/24 08:26 04/02/24 04/03/24 04/03/24 22:59 06:59 14:59 Intake Total 338.3 / 780.8 91.75 / 872.55 74.5 / 74.5 Output Total 50 / 50 100 / 150 Balance 288.3 / 730.8 -8.25 / 722.55 74.5 / 74.5 Weight last 48 hrs Weight 181.845 kg Weight 181.845 kg Weight 177.037 kg Weight 177.037 kg Weight 167.829 kg Weight 167.829 kg Physical Exam Narrative: morbidly obese, vent fio2=90% , pulse ox 88% levo @ 2 heent- nc/at neck supple lungs ronchi and crackles heart regular abdomen soft, poor bs, surgical bandages ext ++ b/l srikanth,a neur- sedated Data 04/03/24 02:54 04/03/24 02:54 Micro: Microbiology 04/01/24 13:40 Gram Stain - Final Sputum - Endotracheal Tube Aspirate Sputum Culture - Preliminary A&P Assessment and plan (1) YOSELIN (acute kidney injury): steroids. he continued on amlodipine and lisinopril. He was diagnosed w/ acute calculus cholecystitis and tenderness in his right upper quadrant. He was seen by Dr Sparks. and he had a Lap CCY on 04/01/24. post -op he had severe hypercapneic resp acidosis with PCO2 > 100 and hypotension. he was diagnosed w/ MRSA PNA- and abx changed to vanco and cefepime. he has required Levophed and he is third spacing and oliguric. Baseline cr was 0.7 mg/dl. in afternoon of 04-01-24 cr ronald to 1.4 mg/dl, cr 3.4 and today cr of 5.6 mg/dl. 1. oligo-anuric YOSELIN- likely ATN- send urine studies and urine electrolytes -serum bicarb has decreased, ph 7.35. as hypoxic, will initiate dialysis and see if helps w/ oxygenation and vent -check renal us check ck -less likely rhabdo check c3, c4 -use albumin stop anti-htn meds -if fails HD, will consider CRRT -check vanco level -Dr Natalio Sparks placed a dialysis catheter 2. renal dose abx 3. pressors per medicine 4. resp acidosis- adjust vent as tolerated seen and examined using A/V equipment w/ the aid of a RN Plan see above PDMP PDMP Reviewed: Not Reviewed Consult Attestations Medical Necessity Statement: yoselin,VDRF, resp acidosis, pressor dependent Time Spent in Patient Care: Greater than 35 minutes (>than 50% of time spent in counselling and/or direct pt care on unit). Coding Level of Care Code Acute Code for [facility] Diagnoses YOSELIN (acute kidney injury) N17.9
[2024-04-03] MEDS: midazolam hcl 100 MG/100 ML BAG 6 MG IV (09:46)
--- NOTE | 2024-04-03 10:07 | USR_ITS ---
PROCEDURE INFORMATION: Exam: US Retroperitoneal, Complete, Kidneys and Bladder Exam date and time: 04/03/2024 4:33 PM Age: 53 years old Clinical indication: Condition or disease; Other: Triston TECHNIQUE: Imaging protocol: Real-time ultrasound of the retroperitoneum with image documentation. Complete exam focused on the bilateral kidneys and urinary bladder. COMPARISON: US gall bladder [id number] 03/30/2024 5:21 PM FINDINGS: Right kidney: The right kidney measures 11.4 x 6.7 x 5.3 cm. No mass, definite calculus, or hydronephrosis. No cortical thinning. Left kidney: The left kidney measures 10.8 x 6.4 x 6.0 cm. No mass, definite calculus, or hydronephrosis. No cortical thinning. Urinary bladder: The bladder is not clearly visualized and may be nearly empty. US/US renal BI* [id number] IMPRESSION: No acute findings. Limited exam due to the patient's body habitus and bowel gas.
[2024-04-03] MEDS: heparin, porcine 1,000 unit/mL INJ 10 mL 1000 UNIT IV (10:26)
[2024-04-03] MEDS: albumin 12.5 GM/50 ML VIAL IV ×2 (10:40→11:18)
--- NOTE | 2024-04-03 11:26 | CTR_ITS ---
PROCEDURE INFORMATION: Exam: CT Chest Without Contrast; Diagnostic Exam date and time: 04/03/2024 4:11 PM Age: 53 years old Clinical indication: Abdominal tenderness; Shortness of breath; Additional info: Fever TECHNIQUE: Imaging protocol: Diagnostic computed tomography of the chest without contrast. Radiation optimization: All CT scans at this facility use at least one of these dose optimization techniques: automated exposure control; mA and/or kV adjustment per patient size (includes targeted exams where dose is matched to clinical indication); or iterative reconstruction. COMPARISON: CT angio chest PE protcl [id number] 03/30/2024 3:36 PM RADIATION DOSE METRICS: Total DLP (mGy-cm): 1525.78 FINDINGS: Tubes, catheters and devices: Endotracheal tube tip in the mid to distal trachea.Left-sided central catheter tip reaches the cavoatrial junction. NG tube courses through the esophagus to the distal stomach. Lungs: Kdoe-bv-unmgdaak volume loss in consolidation in the posterior lower lobes, right greater than left and to a lesser extent in the posterior upper lobes, likely due to atelectasis although superimposed pneumonic consolidation may be present given the presence of air bronchograms and reported fever. Pleural spaces: Unremarkable. No pneumothorax. No pleural effusion. Heart: Mild cardiomegaly. Coronary arteries: No visible coronary calcification. Lymph nodes: Unremarkable. No enlarged lymph nodes. Vasculature: Enlarged main pulmonary artery suggestive of pulmonary hypertension. Bones/joints: Partially imaged posterior thoracic fusion hardware in the upper thoracic spine. Moderate multilevel degenerative endplate spurring and facet arthropathy Soft tissues: Unremarkable. PROCEDURE INFORMATION: Exam: CT Abdomen And Pelvis Without Contrast Exam date and time: 04/03/2024 4:11 PM Age: 53 years old Clinical indication: Abdominal tenderness; Shortness of breath; Additional info: Fever TECHNIQUE: Imaging protocol: Computed tomography of the abdomen and pelvis without contrast. Radiation optimization: All CT scans at this facility use at least one of these dose optimization techniques: automated exposure control; mA and/or kV adjustment per patient size (includes targeted exams where dose is matched to clinical indication); or iterative reconstruction. COMPARISON: CT ang ches abdpel [id number] 03/25/2022 1:32 PM RADIATION DOSE METRICS: Total DLP (mGy-cm): 590 FINDINGS: Tubes, catheters and devices: Gongora's catheter in the bladder. Right femoral central catheter reaches the common femoral vein level. Liver: Moderate hepatic cirrhosis. Gallbladder and biliary ducts: Cholecystectomy clips present. No biliary dilatation. Pancreas: Normal. No ductal dilation. Spleen: Normal. No splenomegaly. Adrenal glands: A 3.5 x 3.3 cm fatty nodule of the left adrenal likely due to myelolipoma (series 10, image 23) is unchanged from 03/25/2022. Kidneys and ureters: 2 cm exophytic nodule in the upper pole of the right kidney is indeterminate for hyperdense cyst versus solid lesion although otherwise stable in size from 03/25/2022. Stomach and bowel: No bowel dilatation. No significant wall thickening. Appendix: No evidence of appendicitis Intraperitoneal space: Small fat containing right paramedian epigastric fatty hernia. Small volume ascites. Vasculature: Unremarkable. No abdominal aortic aneurysm. Lymph nodes: Unremarkable. No enlarged lymph nodes. Urinary bladder: Empty urinary bladder with questionable wall thickening in the setting. Reproductive: Unremarkable as visualized. Bones/joints: Moderate multilevel lumbar spondylosis. Soft tissues: Small fatty inguinal hernias, right larger than left. CT/[place] [id number] IMPRESSION: 1. Moderate opacification of the bilateral posterior lower lobes and to a lesser extent posterior upper lobes likely predominantly due to atelectasis or superimposed pneumonic consolidation may be considered in this clinical setting. 2. Mild cardiomegaly 3. Support hardware as detailed above 4. Suggestion of pulmonary arterial hypertension. IMPRESSION: 1. Questionable urinary bladder wall thickening in the setting of empty lumen drained by Gongora catheter. Correlation for any evidence of cystitis suggested. 2. Otherwise no clear-cut acute abnormality in the abdomen or pelvis. 3. Hepatic cirrhosis with mild ascites. 4. Other chronic and degenerative findings detailed above.
[2024-04-03 11:35] LABS: Complement C3 130 mg/dL (90-180); Uric Acid 12.6 mg/dL (3.4-7.0)
[2024-04-03 11:36] LABS: Vancomycin Random < 4.0 ug/mL (20.0-40.0)
[2024-04-03 11:54] LABS: Hepatitis B Surface AB < 3.5 (11.5-1000); Hepatitis B Surface Antigen Non-Reactive (Nonreactive); Hepatitis C Virus Antibody Reactive (Nonreactive)
--- NOTE | 2024-04-03 12:14 | P.PN_ITS ---
Subjective 2 Subjective: Patient seen and examined. Remains intubated. Nephrology is requesting temporary hemodialysis catheter Vitals/I&O/Wt Last Vital Signs Temp 102.2 F H 04/04/24 08:30 Pulse 96 04/04/24 12:00 Resp 19 H 04/04/24 11:50 BP 98/71 04/04/24 12:00 Pulse Ox 88 L 04/04/24 12:00 O2 Del Method Mechanical Ventilation 04/04/24 11:12 O2 Flow Rate 100 04/04/24 11:12 FiO2 100 04/04/24 11:50 04/03/24 04/04/24 04/04/24 22:59 06:59 14:59 Intake Total 1386.375 / 1879.550 479.4 / 2358.950 90. / 90.25 Output Total 1800 / 1860 0 Balance -413.625 / 19.550 459.4 / 478.950 90. / 90.25 Weight last 48 hrs Weight 399 lb 14.4 oz Weight 399 lb 14.4 oz Weight 403 lb 3.607 oz Weight 400 lb 14.4 oz Weight 400 lb 14.4 oz Physical Exam 2 Narrative: General: No acute distress, intubated and sedated Abdomen: Soft, nondistended, appropriately tender to palpation Incision is intact without erythema or exudate Data 04/04/24 04:14 04/04/24 06:04 Micro: Microbiology 04/03/24 11:20 Urine Culture - Preliminary Urine Catheterized 04/03/24 12:17 Blood Culture - Preliminary Blood NEGATIVE TO DATE 04/03/24 13:21 Blood Culture - Preliminary Blood SPECIMEN COLLECTED 04/01/24 13:40 Gram Stain - Final Sputum - Endotracheal Tube Aspirate Sputum Culture - Preliminary A&P Assessment and plan (1) S/P cholecystectomy: (2) YOSELIN (acute kidney injury): Plan Plan for temporary hemodialysis catheter placement right groin Consent obtained from the . The risks and benefits of the procedure, including but not limited to, bleeding, infection, scar, numbness, pain, damage to surrounding structures, or explained. She was understand the risks and wished to proceed PDMP PDMP Reviewed: Not Reviewed Attestations 2 Medical Necessity Statement*: Per primary Coding Level of Care Code 67910 Diagnoses S/P cholecystectomy Z90.49 YOSELIN (acute kidney injury) N17.9
--- NOTE | 2024-04-03 12:17 | P.PN_ITS ---
Subjective 2 Subjective: Patient became anuric, consulted nephro, temporary dialysis catheter placed, was notified Patient oxygen requirement has worsened however chest x-ray has not shown any significant worsening, patient was given 2 bags of albumin yesterday with Lasix Today patient is febrile Requested new blood cultures, his respiratory panel was done yesterday Will try to get urine culture As per the patient has had 18 kidney stones in the last few years Requesting chest CT abdomen pelvis without contrast As per the nursing staff in the morning patient was able to follow commands and was opening eyes Vitals/I&O/Wt Last Vital Signs Temp 99.5 F 04/03/24 04:00 Pulse 101 H 04/03/24 11:20 Resp 19 H 04/03/24 11:22 BP 97/58 04/03/24 08:00 Pulse Ox 86 L 04/03/24 11:22 O2 Del Method Mechanical Ventilation 04/03/24 11:20 O2 Flow Rate 10 04/01/24 13:26 FiO2 100 04/03/24 11:22 04/02/24 04/03/24 04/03/24 22:59 06:59 14:59 Intake Total 338.3 / 780.8 91.75 / 872.55 197.8 / 197.8 Output Total 50 / 50 100 / 150 Balance 288.3 / 730.8 -8.25 / 722.55 197.8 / 197.8 Weight last 48 hrs Weight 181.845 kg Weight 181.845 kg Weight 177.037 kg Weight 177.037 kg Weight 167.829 kg Weight 167.829 kg Physical Exam 2 Narrative: Patient intubated and sedated Currently on Levophed FiO2 increased to 90% Patient febrile Low blood pressure currently on Levophed Distended nontender abdomen Surgical site without any active drainage Lower extremity no edema No urine in the bag S1, S2 Data 04/03/24 02:54 04/03/24 02:54 Micro: Microbiology 04/01/24 13:40 Gram Stain - Final Sputum - Endotracheal Tube Aspirate Sputum Culture - Preliminary A&P Assessment and plan (1) Respiratory acidosis: (2) Hypercapnic respiratory failure: (3) Encounter for postoperative care: (4) S/P cholecystectomy: (5) Cholecystitis with cholelithiasis: . (6) Shortness of breath: (7) Congestive heart failure: (8) Flu-like symptoms: Supportive treatment. (9) Acute on chronic respiratory failure with hypoxia and hypercapnia: (10) Uncontrolled hypertension: (11) Alcohol use: Chronic. Daily 4 shots of whiskey use. CIWA protocol. (12) Liver cirrhosis: (13) Type 2 diabetes mellitus: . Qualifiers: Diabetes mellitus retirement insulin use: without intermodal dispatcher use Diabetes mellitus complication status: without complication Qualified Code(s): E11.9 - Type 2 diabetes mellitus without complications (14) Morbidly obese: (15) Nicotine dependence, cigarettes, with unspecified nicotine-induced disorders: (16) Hepatitis C: Plan Perioperative respiratory failure requiring intubation I will repeat CT chest abdomen pelvis without contrast Oxygen requirement has worsened PEEP of 12 X-ray did not show significant worsening Febrile today and: Ventilator associated pneumonia? Patient already on cefepime for antipseudomonal coverage along MRSA coverage Repeat urine culture, blood culture, Resp panel negative MRSA pneumonia Escalated antibiotics to vancomycin and cefepime 04/02 Monitor for ARDS ATN: Anuric today Temporary dialysis catheter placed 04/[address] Sparks For session of dialysis today Nephro consulted Cholecystitis status post cholecystectomy Hypotensive Third spacing Liver cirrhosis HIV negative, hep C positive chronic alcohol Did not make enough urine with albumin and Lasix regimen, patient received 2 bags of albumin 04/02 Still on Levophed at low rate Patient is diabetic, Accu-Cheks every 4-6 hours Hemoglobin A1c 6.8 updated Full code May need to start PPN versus TPN PDMP PDMP Reviewed: Not Reviewed Attestations 2 Medical Necessity Statement*: Continue medical management in ICU Coding Level of Care Code Critical Care >/= 30 minutes Critical care time (in minutes): 30 The high probability of a clinically significant, sudden or life threatening deterioration, as referenced in this documentation, required my full and direct attention, intervention and personal management. The critical care time shown is in addition to time spent performing any reported separately billable procedures and includes the following: [x] Data and vital sign review and interpretation [x ] Patient assessment, examination and intervention [x] Medication orders and management [x] Patient/Family updates as able [x] Care Coordination and Documentation. Diagnoses Respiratory acidosis E87.29 Hypercapnic respiratory failure J96.92 Encounter for postoperative care Z48.89 S/P cholecystectomy Z90.49 Cholecystitis with cholelithiasis K80.10 Shortness of breath R06.02 Congestive heart failure I50.9 Flu-like symptoms R68.89 Acute on chronic respiratory failure with hypoxia and hypercapnia J96.21; J96.22 Uncontrolled hypertension I10 Alcohol use F10.90 Liver cirrhosis K74.60 Type 2 diabetes mellitus without complication, without long-term current use of insulin E11.9 Diabetes mellitus retirement insulin use: without intermodal dispatcher use Diabetes mellitus complication status: without complication Morbidly obese E66.01 Nicotine dependence, cigarettes, with unspecified nicotine-induced disorders F17.219 Hepatitis C B19.20
--- NOTE | 2024-04-03 13:11 | P.PCN_ITS ---
Procedure Note: Procedure: Preoperative diagnosis: Acute renal failure requiring emergent dialysis Postoperative diagnosis: Same Procedure: Placement of Mahurkar catheter in the right femoral vein Surgeon: Dr. Panchito Sparks, DO Anesthesia: Local Description of procedure: The patient's right groin was prepped and draped in a sterile manner. 5 mL of 1% lidocaine was infiltrated at the site of planned entry, an introducer needle was used to access the right femoral vein. Guidewire was passed through the introducer needle and the introducer needle was removed. Serial dilators were passed over the guidewire after the skin incision was extended using 11 blade and Mahurkar catheter was then passed over the ryan dewire and the guidewire was removed. The catheter was sutured to the skin using 2-0 Ethilon suture. Sterile dressings were applied. Coding Level of Care Code Acute Code for Chg Fwd
[2024-04-03] MEDS: heparin, porcine 1,000 unit/mL INJ 10 mL 10000 UNIT HE (13:31)
[2024-04-03] MEDS: cefepime 1,000 mg SDV 1000 MG IVP (15:04)
[2024-04-03] MEDS: linezolid premix 600 MG/300 ML PREMIX 300 MG IV (15:06)
[2024-04-03 15:07] LABS: Glucose Point of Care 131 mg/dL (70-110)
[2024-04-03] MEDS: norepinephrine 4 MG/250 ML BAG 22.5 MG IV (15:10)
[2024-04-03 16:36] LABS: Bilirubin Urine 1+ (Negative); Blood Urine 2+ (Negative); Glucose Urine UA Negative (Normal); Ketones Urine Trace (Negative); Leukocyte Esterase Urine 1+ (Negative); Nitrate Urine Negative (Negative); Protein Urine 3+ (Negative); Specific Gravity, Urine 1.022 (1.005-1.030); Urine Appearance Turbid (CLEAR); Urine Color Dark Yellow (Yellow)
[2024-04-03 16:40] LABS: Bacteria Urine None Seen /hpf; Hyaline Casts Urine 7.85 /lpf; RBC Urine 0-2 /hpf (0-2); Squamous Epithelial Cell Urine 0-5 /hpf (0-5); WBC Urine 0-5 /hpf (0-5)
[2024-04-03 17:16] LABS: Chloride Urine Random 12 mmol/L; Potassium, Radom Urine 84 mmol/L; Urine Creatinine 419 mg/dL (39-259); Urine Random Sodium 26 mmol/L
[2024-04-03 17:17] LABS: Urine Random Chloride 11 mmol/L
[2024-04-03 18:04] LABS: UA Slide Review UA Slide Review Perf
[2024-04-03 18:05] LABS: Add Urine Culture? Yes; Other Sediment, Urine T
[2024-04-03] MEDS: pantoprazole 40 mg SDV IVP (19:13)
[2024-04-03 21:20] LABS: Glucose Point of Care 103 mg/dL (70-110)
[2024-04-04] VITALS (107 sets, daily range): BP systolic 78–128; BP diastolic 49–82; PULSE 91–103; RESP 18–44; TEMP 37.1–39; O2SAT 83–92
[2024-04-04] MEDS: midazolam hcl 100 MG/100 ML BAG 6 MG IV ×2 (01:50→19:13)
[2024-04-04] MEDS: fentaNYL 1,000 MCG/100 ML BAG 15 MCG IV ×4 (01:50→20:16)
[2024-04-04] MEDS: chlorhexidine gluconate 4% Btl 118 mL 1 APPLIC TOPICAL (01:50)
[2024-04-04] MEDS: ipratropium 0.5 mg/2.5 mL Neb INHALATION ×6 (03:27→23:05)
[2024-04-04] MEDS: levalbuterol 0.63 mg/3 mL Neb INHALATION ×6 (03:27→23:06)
[2024-04-04 03:29] LABS: Glucose Point of Care 99 mg/dL (70-110)
[2024-04-04] MEDS: linezolid premix 600 MG/300 ML PREMIX 300 MG IV ×2 (03:30→17:31)
[2024-04-04 04:42] LABS: Basophils % 0.1 %; Hematocrit 50.1 % (37-53); Lymphocytes # 2.2 10^3/uL (0.8-4.8); Lymphocytes % 13.1 %; Mean Corpuscular HGB Conc 29.7 g/dL (30-55); Mean Corpuscular Hemoglobin 31.1 pg (27-33); Mean Corpuscular Volume 104.6 fl (82-101); Mean Platelet Volume 11.9 fL (7.4-10.4); Monocytes % 18.5 %; Neutrophils # 11.17 10^3/uL (1.8-7.7); Neutrophils % 67.9 %; Nucleated Red Blood Cells % 0 %; Platelet Count 221 10^3/cmm (157-399); Red Blood Count 4.79 10^6/uL (3.85-5.65); Red Cell Distribution Width 15.1 % (12.1-15.1); White Blood Count 16.43 10^3/uL (3.29-11.43)
[2024-04-04 05:13] LABS: ABG PCO2 38.4 mmHg (35-45); ABG PH Result 7.39 (7.35-7.45); PO2 ABG 72.6 mmHg (80.0-100.0)
[2024-04-04 05:14] LABS: Base Excess ABG -1.3 mmol/L (-2.0-2.0); Blood Gas Allen Test POS; Blood Gas Operator Identificat BISJE; HCO3 ABG 23.3 mmol/L (22-26); Oxygen Saturation ABG 94.1; PO2 FiO2 Ratio Arterial Blood 72; Potassium Level - ABG 5.5 mmol/L (3.5-5.0)
[2024-04-04 05:15] LABS: Blood Gas Drawn By BISJE; Blood Gas Vent Mode VC/AC; Oxygen Device VENT
[2024-04-04 05:16] LABS: Alveolar-Arterial Oxygen Gradi 27.2 mmHg (5-10); Arterial Blood Gas Hematocrit 47.3 % (42-52); Blood Gas Sample Site RIGHT RADIAL; Blood Gas Sample Type ARTERIAL; HGB O2 Sat 92.3 % (95-100); Ionized Calcium Level - ABG 1.1 mmol/L (1.1-1.4); Total Hemoglobin 15.4 g/dL (14-18)
[2024-04-04 05:17] LABS: Methemoglobin 0.9 % (0.4-1.5)
--- NOTE | 2024-04-04 06:00 | XRR_ITS ---
PROCEDURE INFORMATION: Exam: XR Chest Exam date and time: 04/04/2024 4:21 AM Age: 53 years old Clinical indication: Shortness of breath; Prior surgery; Surgery date: 6+ months; Surgery type: Spine; Additional info: Intubated TECHNIQUE: Imaging protocol: Radiologic exam of the chest. Views: 1 view. COMPARISON: [place] [id number] 04/03/2024 4:11 PM FINDINGS: Tubes, catheters and devices: Endotracheal tube is poorly visualized secondary to presence of cervicothoracic fusion hardware. Endotracheal tube terminus is likely located proximally 3.5 cm above the sarita. Gastric tube terminates below the field of view. Left upper extremity PICC terminates over the area of the SVC. Lungs: Low lung volumes. Persistent bibasilar airspace opacities. Pleural spaces: No distinct pneumothorax. Heart/Mediastinum: Cardiomediastinal silhouette is midline and stable in size. Bones/joints: Status post cervicothoracic spinal fusion. Osseous structures are unchanged. XR/XR chest 1V portable [id number] IMPRESSION: Persistent bibasilar airspace opacities.
[2024-04-04 06:46] LABS: Alanine Aminotransferase 120 U/L (0-41); Alkaline Phosphatase 46 U/L (40-130); Anion Gap 25.4 (5-19); Aspartate Amino Transferase 143 U/L (0-40); Calcium 8.8 mg/dL (8.5-10.5); Carbon Dioxide 23 mmol/L (22-29); Chloride 96 mmol/L (98-107); Creatinine Clr Calc Pharmacy 18.7884; Globulin 2.9 g/dL (1.3-4.6); Glomerular Filtration Rate 6.9 mL/min (90-130); Glucose 109 mg/dL (65-115); Magnesium 2.6 mg/dL (1.7-2.3); Osmolality Calculated 316 mOsm/kg (285-295); Potassium 5.4 mmol/L (3.5-5.1); Sodium 139 mmol/L (136-145); Total Bilirubin 1.4 mg/dL (0.15-1.2); Total Protein 6.9 g/dL (6.6-8.7)
[2024-04-04 06:50] LABS: Blood Urea Nitrogen 90 mg/dL (6-20); Phosphorus 8.5 mg/dL (2.5-4.5)
[2024-04-04] MEDS: budesonide 0.5 mg/2 mL Neb INHALATION ×2 (07:22→20:03)
[2024-04-04] MEDS: folic acid 1 mg Tablet PO (08:22)
[2024-04-04] MEDS: multivitamin therapeutic Tablet 1 TAB PO (08:22)
[2024-04-04] MEDS: thiamine 100 mg Tablet PO (08:22)
[2024-04-04] MEDS: docusate sodium 100 mg Capsule PO (08:22)
[2024-04-04] MEDS: nicotine 14 mg Patch 1 PATCH TRANSDERMA (08:22)
[2024-04-04] MEDS: heparin 5,000 unit/mL INJ 1 mL 5000 UNIT SUBCUT (08:23)
--- NOTE | 2024-04-04 09:06 | P.PN_ITS ---
Subjective 2 Subjective: s/p HD yesterday. remians intubated on fio2 100%. he is off pressors, rising cr Medications: Reviewed: Yes Medication Review Details: Current Medications Acetaminophen (Acetaminophen 325 Mg Tablet) 650 mg PO Q6H PRN PRN Reason: Mild/Mod Pain Or Temp >/= 101 Last Admin: 03/31/24 18:33 Dose: 650 mg Budesonide (Budesonide 0.5 Mg/2 Ml Neb) 0.5 mg INHALATION BID.RESPIRATORY KO Last Admin: 04/04/24 07:22 Dose: 0.5 mg Cefepime HCl (Cefepime 1,000 Mg Sdv) 1,000 mg IVP Q24H KO; Protocol Last Admin: 04/03/24 15:04 Dose: 1,000 mg Chlorhexidine Gluconate (Chlorhexidine Gluconate 4% Btl 118 Ml) 1 applic TOPICAL DAILY PRN PRN Reason: Bed Bath Last Admin: 04/04/24 01:50 Dose: 1 applic Docusate Sodium (Docusate Sodium 100 Mg Capsule) 100 mg PO BID KO Last Admin: 04/04/24 08:22 Dose: 100 mg Folic Acid (Folic Acid 1 Mg Tablet) 1 mg PO DAILY KO Last Admin: 04/04/24 08:22 Dose: 1 mg Furosemide (Furosemide 10 Mg/Ml Sdv 4ml) 40 mg IVP Q12H KO Last Admin: 04/02/24 16:00 Dose: 40 mg Glucagon (Glucagon 1 Mg/Ml Kit 1 Ml) 1 mg IM ONCE PRN; Protocol PRN Reason: Adult Acute Hypoglycemia Nursing Prot. Heparin Sodium (Porcine) (Heparin 5,000 Unit/Ml Inj 1 Ml) 5,000 unit SUBCUT Q12H [facility] Last Admin: 04/04/24 08:23 Dose: 5,000 unit Dextrose (D5w) 500 mls @ 0 mls/hr IV ONCE PRN; Protocol PRN Reason: Adult Acute Hypoglycemia Prot Dextrose (D10w) 125 mls @ 750 mls/hr IV PRN PRN; Protocol PRN Reason: Adult Acute Hypoglycemia Nursing Protocol Dextrose (D10w) 250 mls @ 1,000 mls/hr IV PRN PRN; Protocol PRN Reason: Adult Acute Hypoglycemia Nursing Protocol Norepinephrine Bitartrate (Levophed) 4 mg in 250 mls @ 0 mls/hr IV .Q0M KO; Protocol Last Titration: 04/03/24 21:51 Dose: 0 mcg/min, 0 mls/hr Fentanyl (Sublimaze) 1,000 mcg in 100 mls @ 0 mls/hr IV .Q0M KO; Protocol Last Admin: 04/04/24 07:51 Dose: 150 mcg/hr, 15 mls/hr Midazolam HCl (Versed) 100 mg in 100 mls @ 0 mls/hr IV .Q0M KO; Protocol Last Admin: 04/04/24 01:50 Dose: 6 mg/hr, 6 mls/hr Albumin Human (Albumin) 12.5 gm in 50 mls @ 60 mls/hr IV PRN PRN PRN Reason: Hypotension and/or symptomatic Last Infusion: 04/03/24 12:29 Dose: Infused Linezolid (Zyvox Premix) 600 mg in 300 mls @ 300 mls/hr IV Q12H KO; Protocol Last Infusion: 04/04/24 04:55 Dose: Infused Insulin Human Lispro (Insulin Lispro 100 Unit/1 Ml) 0 unit SUBCUT Q6H KO; Protocol Last Admin: 04/04/24 03:27 Dose: Not Given Ipratropium [place] (Ipratropium 0.5 Mg/2.5 Ml Neb) 0.5 mg INHALATION Q4H.RESPIRATORY KO Last Admin: 04/04/24 07:22 Dose: 0.5 mg Lactulose (Lactulose Oral Liq 20 Gm/30 Ml Udc) 10 gm PO DAILY PRN; Protocol PRN Reason: Constipation (see protocol) Levalbuterol HCl (Levalbuterol 0.63 Mg/3 Ml Neb) 0.63 mg INHALATION Q4H.RESPIRATORY KO Last Admin: 04/04/24 07:22 Dose: 0.63 mg Lorazepam (Lorazepam 2 Mg Tablet) 2 mg PO Q4H PRN; Protocol PRN Reason: WITHDRAWAL Lorazepam (Lorazepam 2 Mg/Ml Inj 1 Ml) 2 mg IM Q4H PRN; Protocol PRN Reason: ALCOHOL WITHDRAWAL Lorazepam (Lorazepam 2 Mg/Ml Inj 1 Ml) 2 mg IVP PRN PRN; Protocol PRN Reason: WITHDRAWAL Magnesium Hydroxide (Magnesium Hydroxide 30 Ml Udc) 30 ml PO DAILY PRN; Protocol PRN Reason: Constipation (see protocol) Multivitamins Therapeutic (Multivitamin Therapeutic Tablet) 1 tab PO DAILY [facility] Last Admin: 04/04/24 08:22 Dose: 1 tab Nicotine (Nicotine 14 Mg Patch) 1 patch TRANSDERMA DAILY [facility] Last Admin: 04/04/24 08:22 Dose: 1 patch Ondansetron HCl (Ondansetron 2 Mg/Ml Sdv 2 Ml) 4 mg IVP Q6H PRN PRN Reason: vomiting, or N/V if npo Oxycodone HCl (Oxycodone 5 Mg Ir Tab/Cap) 5 mg PO Q4H PRN PRN Reason: MODERATE PAIN Pantoprazole Sodium (Pantoprazole 40 Mg Sdv) 40 mg IVP Q24H [facility] Last Admin: 04/03/24 19:13 Dose: 40 mg Thiamine Mononitrate (Thiamine 100 Mg Tablet) 100 mg PO DAILY [facility] Last Admin: 04/04/24 08:22 Dose: 100 mg Vitals/I&O/Wt Last Vital Signs Temp 102.2 F H 04/04/24 08:30 Pulse 103 H 04/04/24 08:30 Resp 19 H 04/04/24 07:25 BP 104/72 04/04/24 08:30 Pulse Ox 91 04/04/24 08:30 O2 Del Method Mechanical Ventilation 04/04/24 07:15 O2 Flow Rate 10 04/01/24 13:26 FiO2 100 04/04/24 07:25 04/03/24 04/04/24 04/04/24 22:59 06:59 14:59 Intake Total 1386.375 / 1879.550 479.4 / 2358.950 90.25 / 90.25 Output Total 1800 / 1860 1880 Balance -413.625 / 19.550 459.4 / 478.950 90.25 / 90.25 Weight last 48 hrs Weight 181.392 kg Weight 181.392 kg Weight 182.9 kg Weight 181.845 kg Weight 181.845 kg Physical Exam 2 Narrative: morbidly obese, vent [id number]=567% , pulse ox 91% levo currently off heent- nc/at neck supple lungs -improved air movement heart regular abdomen soft, poor bs, surgical bandages ext ++ b/l edema neur- sedated Data 04/04/24 04:14 04/04/24 06:04 Micro: Microbiology 04/03/24 13:21 Blood Culture - Preliminary Blood SPECIMEN COLLECTED 04/03/24 12:17 Blood Culture - Preliminary Blood SPECIMEN COLLECTED 04/01/24 13:40 Gram Stain - Final Sputum - Endotracheal Tube Aspirate Sputum Culture - Preliminary A&P Assessment and plan (1) YOSELIN (acute kidney injury): steroids. he continued on amlodipine and lisinopril. He was diagnosed w/ acute calculus cholecystitis and tenderness in his right upper quadrant. He was seen by Dr Sparks. and he had a Lap CCY on 04/01/24. post -op he had severe hypercapneic resp acidosis with PCO2 > 100 and hypotension. he was diagnosed w/ MRSA PNA- and abx changed to vanco and cefepime. he has required Levophed and he is third spacing and oliguric. Baseline cr was 0.7 mg/dl. in afternoon of 04-01-24 cr ronald to 1.4 mg/dl, cr 3.4 and as of 04-03-23 cr of 5.6 mg/dl. 1. oligo-anuric YOSELIN- likely ATN- send urine studies and urine electrolytes -no hydronephrosis u/a w/ 3+ protein, 2+ blood- send serologies. consider a RPGN check ck -less likely rhabdo check c3, c4 -use albumin stop anti-htn meds -if fails HD, will consider CRRT -check vanco level -Dr Natalio Sparks placed a dialysis catheter -rsing cr and oliguric YOSELIN even w/ HD. if catheter does not work today, then will need a new diaysis catheter 2. renal dose abx 3. pressors per medicine 4. resp acidosis- improved w/ vent adjustment -pt is hypoxic. consier a pulm consult. consider steroids. sending serologies for possible renal-pulmonary syndrome 5. hepo c +, normal complements- unlikely cryoglobinemia hgb remians high 6. inc lfts- await cpk 7 monitor hyperphosphatemia w/ HD seen and examined using A/V equipment w/ the aid of a RN Plan see above PDMP PDMP Reviewed: Not Reviewed Attestations 2 Medical Necessity Statement*: YOSELIN, VDRF, hypoxemia Time Spent in Patient Care: Greater than 35 minutes (>than 50% of time spent in counselling and/or direct pt care on unit) . Coding Level of Care Code Acute Code for [facility] Diagnoses YOSELIN (acute kidney injury) N17.9
[2024-04-04 09:12] LABS: Glucose Point of Care 117 mg/dL (70-110)
[2024-04-04] MEDS: sodium polystyrene sulfonate 15 gm/60 mL Btl 30 GM PO (09:17)
[2024-04-04 09:30] LABS: HEP C RNA Viral Load Quant 5130000 IU/mL (NOT DETECTED); HEP C RNA Viral Load Quant 6.71 Log IU/mL (NOT DETECTED)
[2024-04-04 09:30] LABS: HEP C RNA Viral Load Quant 5290000 IU/mL (NOT DETECTED); HEP C RNA Viral Load Quant 6.72 Log IU/mL (NOT DETECTED)
[2024-04-04 09:57] LABS: Creatine Phosphokinase 1502 U/L (39-308)
--- NOTE | 2024-04-04 11:55 | P.ANESUD_ITS ---
Pre-Anesthetic Update Pre-Anesthetic Assessment: Date of Surgery/Procedure: 04/04/24 Preop Pay[place] gnosis: Acute cholecystitis Proposed Procedure: Operation Date: 04/01/24 11:50 Proposed Procedures p Laparoscopic Cholecystectomy(Not Applicable) - Panchito Sparks DO Operation Date: 04/04/24 14:25 Proposed Procedures p Dialysis Catheter Insertion Permacath Insertion(Not Applicable) - Panchito Sparks DO Changes from Pre-Anesthetic Assessment: I cared for patient on 04/01/2024. Patient remains intubated currently. FiO2 100%. Most recent ABG showing pH 7.39, pCO2 38, pO2 72, HCO3 23.3. CMP reviewed, BUN 90, creatinine 8.2. CRRT currently running but limited flows due to catheter not working well. WBC 16.4. Patient is currently afebrile, temp 102.2. Blood cultures are pending. Fentanyl gtt. currently running at 150 mcg/h. Versed gtt. at 5 mg/h. Spoke to patient's , Trish. She consents to anesthesia at this time. Plan for general anesthetic Last Intake: Intake Last Liquid Date 04/01/24 Last Liquid Time 01:00 Last Solid Date 03/31/24 Last Solid Time 20:00 Labs Last 48hrs: Short CBC 04/03/24 04/04/24 Range/Units 02:54 04:14 WBC 14.70 H 16.43 H (3.29-11.43) 10^ 3/uL Hgb 15.20 14.90 (11.27-16.99) g/ dL Hct 48.1 50.1 (37-53) % MCV 100.2 104.6 H (82-101) fl Plt Count 231 221 (157-399) 10^3/c mm Neut % (Auto) 85.6 67.9 % Neut # (Auto) 12.58 H 11.17 H (1.8-7.7) 10^3/u L BMP 04/03/24 04/04/24 04/04/24 02:54 04:14 06:04 Sodium 141 Cancelled 139 Potassium 4.9 Cancelled 5.4 H Chloride 95 L Cancelled 96 L Carbon Dioxide 31 H Cancelled 23 BUN 69 H Cancelled 90 H* Creatinine 5.6 H* D Cancelled 8.2 H* Glucose 163 H Cancelled 109 Calcium 8.8 Cancelled 8.8 Cardiac Enzymes 04/04/24 Range/Units 06:04 Creatine Kinase 1502 H* (39-308) U/L Liver Function 04/04/24 04/04/24 Range/Units 04:14 06:04 Total Bilirubin Cancelled 1.4 H AST Cancelled 143 H ALT Cancelled 120 H Alkaline Phosphata se Cancelled 46 Albumin Cancelled 4.0 Urine 04/03/24 Range/Units 11:20 Urine Color Dark yellow A (Yellow) Urine Appearance Turbid A (CLEAR) Urine pH 5.0 (5-7) Ur Specific Gravit y 1.022 (1.005-1.030) Urine Protein 3+ A (Negative) Urine Glucose (UA) Negative (Normal) Urine Ketones Trace (Negative) Urine Nitrate Negative (Negative) Urine Bilirubin 1+ H (Negative) Ur Leukocyte Glen[place] ase 1+ A (Negative) Urine RBC 0-2 (0-2) /hpf Urine WBC 0-5 (0-5) /hpf COVID Results 04/02/24 11:21 Coronavirus 229E ( PCR) Not detected SARS-CoV-2 (PCR) Not detected Coags 04/03/24 04/03/24 01:52 02:54 D-Dimer Cancelled 1.90 H ABG 04/03/24 04/04/24 04:14 04:55 Specimen Type Arterial Arterial Sample Site Radial, right Right radial ABG pH 7.35 7.39 ABG pCO2 61.2 H* 38.4 ABG pO2 59.4 L 72.6 L ABG PO2/FiO2 Ratio 66 72 ABG HCO3 34.0 H 23.3 ABG O2 Saturation 87.7 94.1 ABG Base Excess 6.1 H -1.3 A-a O2 Gradient 66.4 H 27.2 H O2 Delivery Device Vent Vent Vent Mode Vc/ac FiO2 90.0 100.0 Tidal Volume 0.55 .55 PEEP 12.0 12.0 Vitals: Temperature 102.2 F H 04/04/24 08:30 Temperature Source Temporal Artery S can 04/04/24 06:17 Pulse Rate 95 04/04/24 11:12 Pulse Rhythm Regular 04/02/24 20:00 Pulse Strength 3+ Normal 04/03/24 08:00 Respiratory Rate 19 H 04/04/24 11:50 Respiratory Effort Spontaneous, Non- Labored 04/04/24 08:41 Respiratory Depth Normal 04/04/24 08:41 Respiratory Patter n Normal 03/31/24 03:26 Blood Pressure 104/72 04/04/24 08:30 Blood Pressure Altagracia n 82 04/04/24 08:30 Pulse Oximetry 88 L 04/04/24 11:50 Oxygen Delivery Me thod Mechanical Ventil ation 04/04/24 11:12 Oxygen Flow Rate 100 04/04/24 11:12 Fraction of Inspir ed Oxygen 100 04/04/24 11:50 Sepsis Recent Feve r Within 48 Hours No 03/30/24 12:34 Cardiac Studies: Echocardiogram 03/31/24
--- NOTE | 2024-04-04 12:45 | P.PN_ITS ---
Vitals/I&O/Wt Last Vital Signs Temp 102.2 F H 04/04/24 08:30 Pulse 96 04/04/24 12:00 Resp 19 H 04/04/24 11:50 BP 98/71 04/04/24 12:00 Pulse Ox 88 L 04/04/24 12:00 O2 Del Method Mechanical Ventilation 04/04/24 11:12 O2 Flow Rate 100 04/04/24 11:12 FiO2 100 04/04/24 11:50 04/03/24 04/04/24 04/04/24 22:59 06:59 14:59 Intake Total 1386.375 / 1879.550 479.4 / 2358.950 90.. Output Total 1800 / 1860 20 / 1880 Balance -413.625 / 19.550 459.4 / 478.950 .. Weight last 48 hrs Weight 399 lb 14.4 oz Weight 399 lb 14.4 oz Weight 403 lb 3.607 oz Weight 400 lb 14.4 oz Weight 400 lb 14.4 oz Data 04/04/24 04:14 04/04/24 06:04 Micro: Microbiology 04/03/24 12:17 Blood Culture - Preliminary Blood NEGATIVE TO DATE 04/03/24 13:21 Blood Culture - Preliminary Blood SPECIMEN COLLECTED 04/01/24 13:40 Gram Stain - Final Sputum - Endotracheal Tube Aspirate Sputum Culture - Preliminary A&P Assessment and plan (1) YOSELIN (acute kidney injury): Plan Permacath placement The risks and benefits of the procedure, including but not limited to, bleeding, infection, infection requiring Mediport removal antibiotic therapy and repeat surgery, damage to surrounding structures, scar, numbness, pain, pneumothorax requiring thoracostomy tube, were explained to the patient's . She is understanding of the risks and wishes to proceed. PDMP PDMP Reviewed: Not Reviewed Attestations 2 Medical Necessity Statement*: Per primary Coding Level of Care Code Acute Code for [facility] Diagnoses YOSELIN (acute kidney injury) N17.9
[2024-04-04] MEDS: lidocaine-epi 2% PF 1:200,000 20 mL SDV XX (13:18)
[2024-04-04] MEDS: heparin, porcine 1,000 unit/mL INJ 10 mL 6000 UNIT IRRIGATION (13:18)
--- NOTE | 2024-04-04 13:18 | SC_ITS ---
WS: [id number] C-arm [place] for CVA [id number] REASON FOR EXAM: DIALYSIS CATH FINDINGS: Large bore catheter placed from the right internal jugular vein. The tip is at the atrial level. No pneumothorax. Left arm PICC line in the distal SVC. SC/C-arm FL for CVA [id number] IMPRESSION: Large bore right IJ catheter placed as above.
--- NOTE | 2024-04-04 13:49 | P.OP_ITS ---
Operative Report Date of procedure: April 04, 2024 Pre-op diagnosis: Acute kidney injury requiring hemodialysis Post-op diagnosis: same Procedure done: Permacath placement Intraoperative interpretation of fluoroscopy Implants: 27 cm permacath Specimens removed/disposition: None Surgeon: Panchito Sparks DO Anesthesia: MAC Complications: None apparent Procedure: Patient was taken to the operating room and placed supine on the operating room table. All bony prominences were padded. He was given IV sedation and monitored throughout the case by the anesthesia personnel. SCDs were placed and turned on. The arms were tucked to the side. Patient received Vancomycin preoperatively IV. The bilateral chest wall was prepped and draped in usual sterile fashion using chlorhexidine base prep. Sterile drapes were applied. We did procedure pause prior to beginning. An 18 gauge needle was placed in the right internal jugular vein under ult rasound guidance. Dark, nonpulsatile blood was aspirated. A guidewire was placed through the needle centrally toward the atrial/vena caval junction. Fluoroscopy visualized good placement without obvious pneumothorax. The needle was removed and the guidewire was clipped to the drape with a hemostat. Further local anesthetic was infiltrated in the soft tissues of the right chest wall and a #15 blade was used to make a vertical skin incision. A #15 blade was used to make a small skin ziggy around the guidewire insertion area. The permacath tubing was tunneled through the subcutaneous tissues up to the needle insertion location. Serial dilators were used to serially dilate over the guidewire . A dilator with a peel-away sheath was placed over the guidewire and placed centrally. The ryan dewire was removed as well as the dilator and the permacath was fed into the split sheath. The split sheath was removed. Both ports were aspirated to reveal dark blood and were flushed with saline only as the patient has a heparin allergy. final fluoroscopy visualization showed no kink in the catheter and the tip of the permacath tubing near the atrial/vena caval junction. Both skin incisions were thoroughly irrigated and suctioned dry. Meticulous hemostasis noted. The internal jugular access site was closed with 4-0 Vicryl in a subcuticular fashion. The skin overlying the permacath was closed in a similar manner. The permacath was then sutured into place using 2-0 nylon in a simple interrupted fashion. skin glue was applied as a topical dressing. This was allowed to dry. Patient was awakened from anesthesia and transferred via her cart to the recovery room in stable condition. All needle, sponge, and instrument counts were correct per the operating personnel x2 counts.
--- NOTE | 2024-04-04 13:52 | XR_ITS ---
WS: [id number] XR chest 1V portable [id number] REASON FOR EXAM: POSTOP permacath FINDINGS: Since the previous examination of 04/04/2024, there has been trans right jugular placement of a large bore catheter with the tip in the distal SVC. Chest is otherwise unchanged. XR/XR chest 1V portable [id number] IMPRESSION: Right IJ large bore central venous catheter placement as above.
--- NOTE | 2024-04-04 14:12 | ANE.PACU2 ---
Inpatient post-anesthesia follow up: Airway intact: Yes (ETT in place) Vital signs: Temperature 102.2 F Pulse Rate 97 Respiratory Rate 18 Blood Pressure 98/71 Pulse Oximetry 86 Oxygen Delivery Me thod Mechanical Ventila tion Oxygen Flow Rate 100 Fraction of Inspir ed Oxygen 100 Hydration adequate: Yes Nausea and vomiting: No Pain level: Other Pain level: unknown, fentanyl gtt running Mental status: Altered (sedated)
[2024-04-04] MEDS: norepinephrine 4 MG/250 ML BAG 20 MG IV ×3 (14:13→20:17)
--- NOTE | 2024-04-04 15:07 | P.PN_ITS ---
Subjective 2 Subjective: Patient getting worse today Still requiring FiO2 100% Levophed maxed at 20 mics CRRT could not be initiated because his blood was clotting, permacath placed today Presented his case to the builder's labourer at [facility] who graciously excepted right away Patient got accepted at [facility] by the builder's labourer , we also got bed assignment however mother, son, daughter at the bedside stating that they do not want him to be transferred since asking another family meeting they are deciding against transfer and changing CODE STATUS to DNR/DNI and stating that they might opt for comfort care because Boris never wanted to be on any life support is emotionally labile, family is wanting to talk to her before making their final decision, this seems to be not getting along, I had a very piotr and open discussion with the son stating that Boris needs to be evaluated by a sales representative printing supplies before they make their final decision about comfort care, they are adamant that they do not want him to be transferred anywhere and would like to go with comfort care, they are stating that Boris never wanted to be any kind of life support Vitals/I&O/Wt Last Vital Signs Temp 102.2 F H 04/04/24 08:30 Pulse 96 04/04/24 12:00 Resp 19 H 04/04/24 11:50 BP 98/71 04/04/24 12:00 Pulse Ox 88 L 04/04/24 12:00 O2 Del Method Mechanical Ventilation 04/04/24 11:12 O2 Flow Rate 100 04/04/24 11:12 FiO2 100 04/04/24 11:50 04/04/24 04/04/24 04/04/24 06:59 14:59 22:59 Intake Total 479.4 / 2358.950 185.75 / 185.75 Output Total 1879 Balance 459.4 / 478.950 185.75 / 185.75 Weight last 48 hrs Weight 181.392 kg Weight 181.392 kg Weight 182.9 kg Weight 181.845 kg Weight 181.845 kg Physical Exam 2 Narrative: Skin mottling noted Patient maxed on Levophed FiO2 100% Bilateral assisted breath sounds through ventilator Sedated and intubated No significant urine output Distended nontender abdomen Neuroexam limited Endotracheal tube in place Data 04/04/24 04:14 04/04/24 14:32 Micro: Microbiology 04/03/24 13:21 Blood Culture - Preliminary Blood NEGATIVE TO DATE 04/03/24 11:20 Urine Culture - Preliminary Urine Catheterized 04/03/24 12:17 Blood Culture - Preliminary Blood NEGATIVE TO DATE 04/01/24 13:40 Gram Stain - Final Sputum - Endotracheal Tube Aspirate Sputum Culture - Preliminary A&P Assessment and plan (1) Alcohol use: (2) Congestive heart failure: (3) Type 2 diabetes mellitus: Qualifiers: Diabetes mellitus chcf insulin use: without long term acute care registered nurse use Diabetes mellitus complication status: without complication Qualified Code(s): E11.9 - Type 2 diabetes mellitus without complications (4) Morbidly obese: (5) Liver cirrhosis: (6) Cholecystitis with cholelithiasis: (7) Hepatitis C: (8) S/P cholecystectomy: (9) Acute renal failure: (10) Acute exacerbation of chronic obstructive pulmonary disease: (11) Ventilator associated pneumonia: (12) Nicotine dependence, cigarettes, with unspecified nicotine-induced disorders: Plan Respiratory failure requiring mechanical ventilation Patient intubated and sedated Patient was intubated for laparoscopic cholecystectomy Currently requiring 100% FiO2 not been able to wean off oxygen Lung x-ray consistent with bilateral infiltrate Concern for ventilator associated pneumonia He was escalated on antibiotics with linezolid Levaquin and cefepime Echo shows 50% EF CT chest on admission did not show any sign of PE Case was presented to builder's labourer/nurse ob at [facility] for further workup for persistent hypoxia, patient was accepted, bed was assigned however mother, son stating that they do not want him to be transferred and wanting to change his CODE STATUS and pursue comfort care however waiting for his to show up and writing this note around 7 PM I did put a lot of time and effort in coordinating care getting getting excepted and having multiple family meetings today Ventilator associated pneumonia MRSA positive Patient is on double antipseudomonal coverage along linezolid There was concern for UTI as well as per the CT scan abdomen pelvis with thickened urinary bladder Septic shock Currently patient is maxed on Levophed ATN/acute renal failure Permacath placement today CRRT was not tolerated Appreciate nephro recommendations Hepatitis C and alcohol-related liver cirrhosis Ascites Patient did not response to albumin History of diabetes Accu-Cheks every 6 hours Laparoscopic cholecystectomy: With complications related to perioperative respiratory failure requiring mechanical ventilation with acute decompensation Patient was accepted at [facility] intense care unit however mother and son wanting to discuss with the to make the final decision however they are asking us not to transfer him at this point asking us to change his CODE STATUS to comfort care but wanted to wait until is at the bedside Had multiple family meetings today PDMP PDMP Reviewed: Not Reviewed Attestations 2 Medical Necessity Statement*: Continue ICU care Coding Level of Care Code Critical Care >/= 30 minutes Critical care time (in minutes): 120 The high probability of a clinically significant, sudden or life threatening deterioration, as referenced in this documentation, required my full and direct attention, intervention and personal management. The critical care time shown is in addition to time spent performing any reported separately billable procedures and includes the following: [x] Data and vital sign review and interpretation [x ] Patient assessment, examination and intervention [x] Medication orders and management [x] Patient/Family updates as able [x] Care Coordination and Documentation. Diagnoses Alcohol use F10.90 Congestive heart failure I50.9 Type 2 diabetes mellitus without complication, without long-term current use of insulin E11.9 Diabetes mellitus long term acute care registered nurse insulin use: without chcf use Diabetes mellitus complication status: without complication Morbidly obese E66.01 Liver cirrhosis K74.60 Cholecystitis with cholelithiasis K80.10 Hepatitis C B19.20 S/P cholecystectomy Z90.49 Acute renal failure N17.9 Acute exacerbation of chronic obstructive pulmonary disease J44.1 Ventilator associated pneumonia J95.851 Nicotine dependence, cigarettes, with unspecified nicotine-induced disorders F17.219
[2024-04-04 15:12] LABS: Partial Thromboplastin Time 65.7 SECONDS (23.9-36.7)
[2024-04-04 15:14] LABS: Albumin Level 4.2 g/dL (3.5-5.2); Calcium 8.8 mg/dL (8.5-10.5); Carbon Dioxide 25 mmol/L (22-29); Chloride 95 mmol/L (98-107); Creatinine Clr Calc Pharmacy 17.5074; Glomerular Filtration Rate 6.4 mL/min (90-130); Glucose 120 mg/dL (65-115); Magnesium 2.5 mg/dL (1.7-2.3); Sodium 139 mmol/L (136-145)
[2024-04-04 15:19] LABS: Anion Gap 24.7 (5-19); Potassium 5.7 mmol/L (3.5-5.1)
[2024-04-04 15:21] LABS: Blood Urea Nitrogen 83 mg/dL (6-20); Phosphorus 8.9 mg/dL (2.5-4.5)
[2024-04-04 15:24] LABS: INR 1.05 (0.8-1.2)
--- NOTE | 2024-04-04 15:43 | PC.NURSE ---
CRRT started per order. DR. Sawant updated on CRRT and patient on 20 of levo still on 100% fio2
--- NOTE | 2024-04-04 15:49 | PC.NURSE ---
family came to bedside updated on condition and plan of crrt
--- NOTE | 2024-04-04 16:15 | PC.NURSE ---
Dr. Sawant bedside seeing patient. Gave verbal orders for heparin gtt. Witnessed by Owen RAMON. Order placed.
[2024-04-04] MEDS: heparin drip 25,000 UNIT/500 ML PREMIX 52 UNIT IV (16:30)
--- NOTE | 2024-04-04 16:34 | PC.NURSE ---
CRRT not tolerated, Access and return extremely and extremely positive, not able to pull blood, unable to return blood. Dr Sawant came to bedside, advised to stop CRRT and start a heparin drip, start Epi drip for bp in needed
[2024-04-04] MEDS: cefepime 1,000 mg SDV 1000 MG IVP (17:32)
--- NOTE | 2024-04-04 17:42 | PC.NURSE ---
Family expressed desire to go comfort care, HCP spoke with family, waiting on family decision at this time
[2024-04-04] MEDS: heparin, porcine 1,000 unit/mL INJ 10 mL 2000 UNIT IV (18:54)
[2024-04-04] MEDS: heparin, porcine 1,000 unit/mL INJ 10 mL 10000 UNIT INTRACATH (18:55)
[2024-04-04 19:22] LABS: Albumin Level 3.8 g/dL (3.5-5.2); Anion Gap 23.8 (5-19); Calcium 7.6 mg/dL (8.5-10.5); Carbon Dioxide 24 mmol/L (22-29); Chloride 97 mmol/L (98-107); Creatinine Clr Calc Pharmacy 17.9145; Glomerular Filtration Rate 6.6 mL/min (90-130); Glucose 115 mg/dL (65-115); Magnesium 2.3 mg/dL (1.7-2.3); Osmolality Calculated 315 mOsm/kg (285-295); Potassium 5.8 mmol/L (3.5-5.1); Sodium 139 mmol/L (136-145)
[2024-04-04 19:26] LABS: Blood Urea Nitrogen 87 mg/dL (6-20)
[2024-04-04 19:27] LABS: Phosphorus 8.9 mg/dL (2.5-4.5)
--- NOTE | 2024-04-04 20:45 | PC.NURSE ---
Dr. Roger advised to restart CRRT. Started at this time
[2024-04-04] MEDS: pantoprazole 40 mg SDV IVP (20:56)
[2024-04-04] MEDS: PrismaSol BGK 4/2.5 - 5,000 mL Bag 5000 ML CRRT ×3 (20:56)
[2024-04-04 21:17] LABS: Glucose Point of Care 112 mg/dL (70-110)
--- NOTE | 2024-04-04 21:28 | PC.HD ---
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 Treatment terminated early as pt going to OR for new HD cath placement.
[2024-04-04 22:21] LABS: Partial Thromboplastin Time 154.5 SECONDS (23.9-36.7)
[2024-04-04] MEDS: EPINEPHrine 5 MG in sodium chloride 0.9% 500 ML 3.03 MG IV (22:37)
--- NOTE | 2024-04-04 23:37 | PC.NURSE ---
Dr. Roger called, updated on set clotted off and restarting crrt, order recieved to increase pbp and replacement to 2000 ml/hr, and switch to 2k 3.5 ca fluid
[2024-04-05] VITALS: BP 83/55; PULSE 105; O2SAT 86
[2024-04-05 00:15] VITALS: BP 89/54; PULSE 105; O2SAT 86
[2024-04-05 00:30] VITALS: BP 94/59; PULSE 105; O2SAT 86
[2024-04-05 00:45] VITALS: BP 90/61; PULSE 107; TEMP 37.9; O2SAT 90
[2024-04-05] MEDS: PrismaSol BGK 2/3.5 - 5,000 ML BAG 5000 ML CRRT ×3 (01:25)
[2024-04-05] MEDS: fentaNYL 1,000 MCG/100 ML BAG 17.5 MCG IV (01:45)
[2024-04-05] MEDS: vasopressin 40 UNIT/100 ML PREMIX 6 UNIT IV (01:50)
[2024-04-05 02:30] LABS: Alanine Aminotransferase 638 U/L (0-41); Albumin Level 4.3 g/dL (3.5-5.2); Alkaline Phosphatase 49 U/L (40-130); Anion Gap 22.1 (5-19); Blood Urea Nitrogen 50 mg/dL (6-20); Calcium 9.5 mg/dL (8.5-10.5); Carbon Dioxide 23 mmol/L (22-29); Chloride 97 mmol/L (98-107); Creatinine Clr Calc Pharmacy 40.8697; Globulin 2.9 g/dL (1.3-4.6); Glomerular Filtration Rate 16.9 mL/min (90-130); Glucose 92 mg/dL (65-115); Magnesium 2.1 mg/dL (1.7-2.3); Osmolality Calculated 299 mOsm/kg (285-295); Phosphorus 3.7 mg/dL (2.5-4.5); Potassium 4.1 mmol/L (3.5-5.1); Sodium 138 mmol/L (136-145); Total Bilirubin 2.9 mg/dL (0.15-1.2); Total Protein 7.2 g/dL (6.6-8.7)
--- NOTE | 2024-04-05 02:43 | PM.CCNAC ---
Critical Care Event Note The high probability of a clinically significant, sudden or life threatening deterioration of the patient's circulatory system(s) required my full and direct attention, intervention and personal management. The critical care time is as shown. This time is in addition to time spent performing any reported procedures but includes the following: [x] Data and vital sign review and interpretation [x] Patient assessment, examination and intervention [x] Documentation [x] Medication orders and management Critical Care Time Code activated: Yes Critical Care Time (min): 35 Additional information about critical care time: Contacted by staff to emergently evaluate patient due to worsening condition. Patient found to be in refractory shock on maximum vasopressor support. During evaluation, patient continued to decompensate into PEA cardiac arrest. CPR using ACLS protocol was immediately initiated. Refer to code sheet for specific of medications. ROSC obtained about ~14 minutes. Numerous family members bedside at that time including spouse, brother, mother and others. After brief ROSC, patient decompensated back into PEA arrest. CPR using ACLS protocol was restarted. Family subsequently agreeing to stop CPR and allow natural . CPR stopped. Time of at 0236 on 04/05/2024. Coding Level of Care Code Acute Code for Chg Fwd Time Spent (min) 35 Comment Critical Care Time of 35 minutes (does not including CPR time / CPT 00937).
[2024-04-05 02:53] LABS: Aspartate Amino Transferase 866 U/L (0-40)
--- NOTE | 2024-04-05 02:54 | PC.NURSE ---
0254 - [facility] notified of patient . Patient is not a candidate for donation per [facility]. [facility] will notify [employer] [employer].
[2024-04-05 02:55] LABS: Partial Thromboplastin Time > 250.0 SECONDS (23.9-36.7)
--- NOTE | 2024-04-05 03:10 | PC.NURSE ---
This nurse assumed care for patient at 0000 of 04/05 When care was assumed drip rates were as followed - Levophed 20mcg/min -Epinephrine 2mcg/min During handoff report, nursing staff experience significant clotting with CRRT machine. Cassette changed by nursing staff and nephrology called. Crrt settings changed. During this time Nephrology was notified of significant drops in blood pressure which required increased amount of epinephrine. Settings adjusted on CRRT machine per physician order and patient began therapy. During therapy blood pressures continued to drop, epinephrine titrated per protocol. With blood pressures continuing to decline, this nurse was prompted to call physician. Telephone order received to start vasopressin at set rate. Blood pressures continued to drop. Nephrology contacted and order given to discontinue CRRT. Hospitalist was then called to unit due to deterioration of status Provider at bedside prior to code blue. See code sheet for further information.
--- NOTE | 2024-04-05 03:48 | PC.NURSE ---
All Belongings, including cane left with family after patient expiration.
--- NOTE | 2024-04-05 03:54 | PC.NURSE ---
Fentanyl and versed wasted with Rossy Singh RN
--- NOTE | 2024-04-05 04:18 | PC.NURSE ---
MTS contacted by tang abebe patient sent to [facility] at [phone]
[2024-04-05 07:35] LABS: Anti-Double Strand DNA AB 2 IU/mL
[2024-04-05 11:22] LABS: Glucose Point of Care 110 mg/dL (70-110)
[2024-04-05 15:35] LABS: Anti-Nuclear Antibody Screen NEGATIVE (NEGATIVE)
--- NOTE | 2024-04-05 17:24 | PM.DDS ---
Discharge Providers DDS Date of Admission: 03/30/24 17:54 Date Summary Completed: 04/05/24 Attending Provider at Admission: Jonny Ramirez MD Time of : 02:36 Attending Provider at Discharge: Ammon Castellon MD Primary Care Provider: DO MICHELLE Saenz Diagnoses Hospital Diagnoses (1) Alcohol use: (2) Congestive heart failure: (3) Type 2 diabetes mellitus: Qualifiers: Diabetes mellitus middle or intermediate school principal insulin use: without middle or intermediate school principal use Diabetes mellitus complication status: without complication Qualified Code(s): E11.9 - Type 2 diabetes mellitus without complications (4) Morbidly obese: (5) Liver cirrhosis: (6) Cholecystitis with cholelithiasis: (7) Hepatitis C: (8) S/P cholecystectomy: (9) Acute renal failure: (10) Acute exacerbation of chronic obstructive pulmonary disease: (11) Ventilator associated pneumonia: (12) Nicotine dependence, cigarettes, with unspecified nicotine-induced disorders: Reason for Visit Reason for Visit SOB Summary Date and Time of Date of : 04/05/24 Time of : 02:36 Summary Summary: Patient presented with shortness of breath, he was kept in the ICU, there was concern for anasarca related to underlying liver cirrhosis and congestive heart failure, patient went for laparoscopic cholecystectomy, perioperatively got intubated and then hypoxia kept getting worse, CTA chest on admission did not show PE, echo showed preserved action fraction, patient was given Lasix with albumin he stopped making urine and became anuric, nephro consulted, we started dialysis, CRRT was added when patient was requiring Levophed which was maxed at 20, secondary to worsening hypoxia case was presented to [facility] human relations professor who accepted, I did tell the family that he needs pulmonology consultation for his persistent hypoxia, however family changed her mind and stated that they do not want him to be transferred and wanted to change goals of care, they could not decide overnight, family may just discontinue transfer orders, patient overnight secondary to acute renal failure This patient had multiple comorbid conditions such as untreated hepatitis C, liver cirrhosis, anasarca, recent cholecystitis status post cholecystectomy with complications such as perioperative respiratory failure requiring intubation and failure to extubate requiring higher oxygen Additional Data Confirmation of as documented by pronouncing clinician: no pulse, no respirations, no heart sounds and pupils fixed and dilated Family: at bedside Additional persons at bedside: nursing staff Attending/PCP notified?: I am attending Autopsy requested?: No Advance directives?: No Discharge Plan Discharge Patient Disposition: Condition: Stable Prescriptions: No Action lisinopril 40 mg tablet 40 mg PO DAILY Qty: 90 3RF chlorthalidone 25 mg tablet 25 mg PO DAILY amlodipine 10 mg tablet 10 mg PO DAILY Referrals: Rafael Jacobson, [Primary Care Provider] - Patient Instructions: Acute Wound Care (DC), Post Anesthesia Care Probable Cause of Probable cause of : Cardiac arrest DS Attestations Time Spent in /Discharge Care*: less than 30 min Quality - AMI: AMI present?: No Quality - Stroke: CVA present?: No Quality - VTE: VTE present?: No Coding Level of Care Code Acute Code for Chg Fwd Diagnoses Alcohol use F10.90 Congestive heart failure I50.9 Type 2 diabetes mellitus without complication, without long-term current use of insulin E11.9 Diabetes mellitus penitentiary insulin use: without middle or intermediate school principal use Diabetes mellitus complication status: without complication Morbidly obese E66.01 Liver cirrhosis K74.60 Cholecystitis with cholelithiasis K80.10 Hepatitis C B19.20 S/P cholecystectomy Z90.49 Acute renal failure N17.9 Acute exacerbation of chronic obstructive pulmonary disease J44.1 Ventilator associated pneumonia J95.851 Nicotine dependence, cigarettes, with unspecified nicotine-induced disorders F17.219
[2024-04-06 14:54] LABS: Glomerular Bsmt Membrane IGG <1.0 AI
[2024-04-07 09:25] LABS: ANCA Screen NEGATIVE (NEGATIVE)
[2024-04-08 07:23] LABS: Vit D 1,25 (Oh)2, Total 49 pg/mL (18-72); Vit D2 1,25 (Oh)2 <8 pg/mL; Vit D3 1,25 (Oh)2 49 pg/mL
[2024-04-09 16:10] LABS: Osmolality Urine 354 mOsm/kg (50-1200)
== END 2024-04-05 02:38 | disposition expired | DRG 987 ==
LOC: ER 14:15 → ER IP 17:55 → MEDSURG 18:03 → ICU 04-01 14:03
PROVIDERS: Internal Medicine; Internal Medicine Nephrology; Student in an Organized Health Care Education/Training Program; Surgery; Admitting Provider Student in an Organized Health Care Education/Training Program; Emergency Provider Family Medicine; PCP Family Medicine; Visit Provider Internal Medicine
PROC: 0FT44ZZ Resection of Gallbladder, Percutaneous Endoscopic Approach (ICD-10-PCS; CPT 47562; principal; 2024-04-01 11:40)
PROC: 02HV33Z Insertion of Infusion Device into Superior Vena Cava, Percutaneous Approach (ICD-10-PCS; principal; 2024-04-04 14:15)
DX: I11.0 Hypertensive heart disease with heart failure (principal); I50.33 Acute on chronic diastolic (congestive) heart failure; N17.0 Acute kidney failure with tubular necrosis; J96.22 Acute and chronic respiratory failure with hypercapnia; J96.21 Acute and chronic respiratory failure with hypoxia; K80.11 Calculus of gallbladder with chronic cholecystitis with obstruction; Z68.42 Body mass index [BMI] 45.0-49.9, adult; J44.1 Chronic obstructive pulmonary disease with (acute) exacerbation; J44.0 Chronic obstructive pulmonary disease with (acute) lower respiratory infection; J95.851 Ventilator associated pneumonia; N39.0 Urinary tract infection, site not specified; T82.818A Embolism due to vascular prosthetic devices, implants and grafts, initial encounter; F15.90 Other stimulant use, unspecified, uncomplicated; K70.30 Alcoholic cirrhosis of liver without ascites; F10.20 Alcohol dependence, uncomplicated; E11.9 Type 2 diabetes mellitus without complications; E66.01 Morbid (severe) obesity due to excess calories; B19.20 Unspecified viral hepatitis C without hepatic coma; B95.62 Methicillin resistant Staphylococcus aureus infection as the cause of diseases classified elsewhere; F17.210 Nicotine dependence, cigarettes, uncomplicated; F17.220 Nicotine dependence, chewing tobacco, uncomplicated; Y81.8 Miscellaneous general- and plastic-surgery devices associated with adverse incidents, not elsewhere classified; E87.5 Hyperkalemia; I95.9 Hypotension, unspecified; I46.9 Cardiac arrest, cause unspecified; G47.33 Obstructive sleep apnea (adult) (pediatric); Z79.84 Long term (current) use of oral hypoglycemic drugs; I27.20 Pulmonary hypertension, unspecified; Z85.828 Personal history of other malignant neoplasm of skin; Z98.1 Arthrodesis status
CPT/HCPCS: 36415; 36416; 36573; 36592; 36600; 51702; 71045; 71250; 71275; 74176; 76705; 76770; 77001; 80048; 80051; 80053; 80061; 80069; 80202; 80306; 80307; 81001; 82140; 82330; 82436; 82550; 82570; 82607; 82652; 82746; 82803; 82805; 82962; 83036; 83520; 83540; 83550; 83605; 83690; 83735; 83880; 83935; 84100; 84133; 84145; 84300; 84439; 84443; 84481; 84484; 84550; 85025; 85378; 85610; 85730; 86036; 86038; 86160; 86225; 86705; 86706; 86709; 86803; 87040; 87070; 87086; 87205; 87340; 87486; 87522; 87581; 87633; 87637; 87806; 88304; 90935; 93005; 94003; 94640; 94799; 96372; 96374; 96376; 99285; A4216; C1751; C8929; J0171; J0692; J0696; J1100; J1630; J1644; J1815; J1940; J2020; J2250; J2270; J2405; J2470; J2543; J2598; J2704; J2919; J3010; J3411; J3490; J7030; J7040; J7614; J7626; J7644; P9045; P9046; P9047; Q3014